=== PATIENT | male | born 1935 | race Hispanic/Latino ===

== ENCOUNTER 2019-07-07 14:09 | Inpatient (IN) | payer MEDICARE ==
[~2019-07-07] VITALS: Ht 162.6 cm; Wt 63.5 kg
[2019-07-07] MEDS ORDERED: IPRATROPIUM BROMIDE 0.02% 2.5 ML NEB NEB STA (14:13)
[2019-07-07] MEDS ORDERED: CEFTRIAXONE SOD 1 GM/NS 50 ML 50 ML IV STA (14:13)
[2019-07-07] MEDS ORDERED: METHYLPREDNISOLONE SOD SUCC 125 MG/2ML VIAL IV STA (14:13)
[2019-07-07] MEDS ORDERED: ALBUTEROL SULF 0.083% NEB SOLN 3 ML NEB NEB STA (14:13)
[2019-07-07 14:28] LABS: BASOPHILS # (AUTO) 0.1 (0.0-0.1); BASOPHILS % 0.7 % (0.0-1.0); EOSINOPHILS # (AUTO) 0.2 (0.0-0.4); EOSINOPHILS % 2.2 % (0.0-6.0); HEMOGLOBIN 13.8 g/dL (14.0-18.0); LYMPHOCYTES # (AUTO) 1.6 (1.0-3.2); MEAN CORPUSCULAR HEMOGLOBIN 30.2 pg (28-32); MEAN CORPUSCULAR HGB CONC 33.7 g/dL (31-35); MEAN CORPUSCULAR VOLUME 89.7 fL (81-99); MONOCYTES # (AUTO) 0.7 (0.2-0.8); MONOCYTES % 9.2 % (4.4-11.3); NEUTROPHILS # (AUTO) 4.8 (2.1-6.9); NEUTROPHILS % 65.5 % (38.7-80.0); PLATELET COUNT 202 x10e3/uL (140-360); RED BLOOD COUNT 4.57 x10e6/uL (4.3-5.7); RED CELL DISTRIBUTION WIDTH 13.3 % (11.7-14.4)
[2019-07-07 14:38] LABS: INR 1.04; PROTHROMBIN TIME 14.1 seconds (11.9-14.5)
[2019-07-07 14:39] LABS: PARTIAL THROMBOPLASTIN TIME 34.7 seconds (23.8-35.5)
[2019-07-07 14:48] LABS: ALANINE AMINOTRANSFERASE 11 IU/L (0-55); ALBUMIN 3.5 g/dL (3.5-5.0); ALKALINE PHOSPHATASE 118 IU/L (40-150); ANION GAP 13.7 mmol/L (8-16); BLOOD UREA NITROGEN 13 mg/dL (7-26); BUN/CREATININE RATIO 16 (6-25); CALCIUM 9.4 mg/dL (8.4-10.2); CARBON DIOXIDE 24 mmol/L (22-29); CHLORIDE 103 mmol/L (98-107); CREATINE KINASE 70 IU/L (30-200); EST GLOMERULAR FILTRATION RATE > 60 ML/MIN (60-); GLUCOSE 127 mg/dL (74-118); POTASSIUM 3.7 mmol/L (3.5-5.1); SODIUM 137 mmol/L (136-145)
[2019-07-07] MEDS ORDERED: AZITHROMYCIN 500MG/NS 250 ML 250 ML IV ONE (14:50)
[2019-07-07 15:29] LABS: B-TYPE NATRIURETIC PEPTIDE2 54.2 pg/mL (0-100)
[2019-07-07 16:10] LABS: BILIRUBIN,URINE NEGATIVE (NEGATIVE); CLARITY,URINE CLEAR (CLEAR); COLOR,URINE YELLOW (YELLOW); KETONES,URINE NEGATIVE (NEGATIVE); LEUKOCYTE ESTERASE ,URINE NEGATIVE (NEGATIVE); NITRITE,URINE NEGATIVE (NEGATIVE); PROTEIN,URINE DIPSTICK NEGATIVE (NEGATIVE); URINE UROBILINOGEN 0.2 mg/dL (0.2 - 1)
[2019-07-07 16:23] LABS: BACTERIA,URINE RARE /HPF; EPITHELIAL CELLS,URINE RARE /LPF
--- NOTE | 2019-07-07 16:24 | Diagnostic Imaging Report ---
EXAMINATION: CHEST SINGLE (PORTABLE) INDICATION: Shortness of breath COMPARISON: None FINDINGS: LINES/TUBES:Left chest pacer. LUNGS:The left lung is well inflated. The right lung is moderately inflated. Mild biapical pleural parenchymal thickening/scarring. There is perihilar fullness and indistinctness of the pulmonary vasculature. Right basilar patchy opacity. PLEURA:Likely small right pleural effusion. No pneumothorax. MEDIASTINUM:The cardiomediastinal silhouette appears normal in size and shape. Atherosclerotic calcifications of the thoracic aorta. BONES/SOFT TISSUES:No acute osseous injury. ABDOMEN:No free air under the diaphragm. 1. IMPRESSION: Pulmonary interstitial edema. Likely small right pleural effusion. Right basilar patchy opacity, more likely subsegmental atelectasis than superimposed aspiration or pneumonia. Signed by: Karissa Espinoza MD on 07/07/2019 4:21 PM
[2019-07-07] MEDS ORDERED: CEFTRIAXONE SOD 1 GRAM/0.9% SOD CHL 50ML BAG IV SCH (18:00)
[2019-07-07] MEDS ORDERED: SODIUM CHLORIDE FLUSH 10 ML SYR INJ PRN (18:00)
[2019-07-07] MEDS ORDERED: AZITHROMYCIN 500MG/SOD CHL 0.9% 250ML BAG IV SCH (18:00)
--- OUTSIDE RECORDS SUMMARY | 2019-07-07 18:32 | XMS REPORT ---
[facility] Unknown Phone Unavailable Care Team Providers Care Paralegal Supervisor Name Role Phone Vero GAYTAN Unavailable Unavailable Problems This patient has no known problems. Allergies, Adverse Reactions, Alerts This patient has no known allergies or adverse reactions. Medications This patient has no known medications. 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 LUNGS:The left lung is well inflated. The right lung is moderately inflated. Mild biapical pleural parenchymal thickening/scarring. There is perihilar fullness and indistinctness of the pulmonary vasculature. Right basilar patchy opacity. PLEURA:Likely small right pleural effusion. No pneumothorax. MEDIASTINUM:The cardiomediastinal silhouette appears normal in size and shape. Atherosclerotic calcifications of the thoracic aorta. BONES/SOFT TISSUES:No acute osseous injury. ABDOMEN:No free air under the diaphragm. 1. IMPRESSION: Pulmonary interstitial edema. Likely small right pleural effusion. Right basilar patchy opacity, more likely subsegmental atelectasis than superimposed aspiration or pneumonia. Signed by: Jaren Redmond MD on 07/07/2019 4:21 PM Dictated By: JAREN REDMOND MD [id number] COPY TO: GLENIS MERCADO NP
[2019-07-07] MEDS ORDERED: FLOMAX0.4 MG PO (19:24)
[2019-07-07] MEDS ORDERED: LOVASTATIN20 MG PO (19:24)
[2019-07-07] MEDS ORDERED: ENALAPRIL MALE2.5 MG PO (19:24)
[2019-07-07] MEDS ORDERED: QUETIAPINE FUMA25 MG PO (19:24)
[2019-07-07] MEDS ORDERED: METFORMIN HCL500 MG PO (19:24)
[2019-07-07] MEDS ORDERED: COMBIVENT RESPIM4 GM (19:24)
[2019-07-07] MEDS: OSELTAMIVIR PHOSPHATE 75 MG CAP PO SCH (19:30)
[2019-07-07] MEDS: ALBUTEROL SULF 0.083% NEB SOLN 3 ML NEB NEB SCH (20:18)
[2019-07-08] MEDS: ALBUTEROL SULF 0.083% NEB SOLN 3 ML NEB NEB SCH ×3 (00:12→06:40)
[2019-07-08 05:28] LABS: BASOPHILS % 0.2 % (0.0-1.0); HEMATOCRIT 36.7 % (38.2-49.6); HEMOGLOBIN 12.3 g/dL (14.0-18.0); LYMPHOCYTES # (AUTO) 0.7 (1.0-3.2); LYMPHOCYTES % 13.9 % (18.0-39.1); MEAN CORPUSCULAR HEMOGLOBIN 30.1 pg (28-32); MEAN CORPUSCULAR HGB CONC 33.5 g/dL (31-35); MONOCYTES # (AUTO) 0.1 (0.2-0.8); MONOCYTES % 2.1 % (4.4-11.3); NEUTROPHILS # (AUTO) 3.9 (2.1-6.9); NEUTROPHILS % 83.4 % (38.7-80.0); PLATELET COUNT 208 x10e3/uL (140-360); RED BLOOD COUNT 4.08 x10e6/uL (4.3-5.7); RED CELL DISTRIBUTION WIDTH 13.1 % (11.7-14.4)
[2019-07-08 05:46] LABS: ANION GAP 13.8 mmol/L (8-16); BLOOD UREA NITROGEN 11 mg/dL (7-26); BUN/CREATININE RATIO 15 (6-25); CALCIUM 9.4 mg/dL (8.4-10.2); CARBON DIOXIDE 21 mmol/L (22-29); CHLORIDE 107 mmol/L (98-107); CREATININE, SERUM 0.72 mg/dL (0.72-1.25); EST GLOMERULAR FILTRATION RATE > 60 ML/MIN (60-); GLUCOSE 138 mg/dL (74-118); POTASSIUM 3.8 mmol/L (3.5-5.1); SODIUM 138 mmol/L (136-145)
[2019-07-08] MEDS ORDERED: ALBUTEROL/IPRATROPIUM 3 ML NEB NEB PRN (07:00)
[2019-07-08 07:19] LABS: CHOL/HDL RATIO 2.8 (3.9-4.7)
[2019-07-08] MEDS: LORATADINE 10 MG TAB PO SCH (08:31)
[2019-07-08] MEDS: TAMSULOSIN HCL 0.4 MG CAP PO SCH (08:31)
[2019-07-08] MEDS: OSELTAMIVIR PHOSPHATE 75 MG CAP PO SCH ×2 (08:31→17:51)
[2019-07-08] MEDS: CEFTRIAXONE SOD 1 GM/NS 50 ML 50 ML IV SCH (08:31)
[2019-07-08] MEDS: FAMOTIDINE 20 MG TAB PO SCH ×2 (08:31→17:51)
[2019-07-08] MEDS: ASCORBIC ACID 500 MG TAB PO SCH ×2 (08:31→17:51)
[2019-07-08] MEDS: BENZONATATE 100 MG CAP PO SCH ×3 (08:31→21:00)
[2019-07-08] MEDS: ENALAPRIL MALEATE 5 MG TAB PO SCH (08:38)
[2019-07-08] MEDS ORDERED: DEXTROSE 50% SYRINGE 50 ML IV PRN (12:30)
[2019-07-08 12:40] VITALS: BP 113/65
[2019-07-08 12:48] VITALS: BP 113/65
[2019-07-08] MEDS ORDERED: SODIUM CHLORIDE 0.9% 250ML 250 ML ONE (13:13)
[2019-07-08] MEDS: GUAIFENESIN/DEXTROMETHORPHAN LIQD 5 ML UDC NG SCH ×2 (14:24→22:00)
[2019-07-08] MEDS: AZITHROMYCIN 500MG/NS 250 ML 250 ML IV SCH (14:25)
[2019-07-08 16:09] VITALS: BP 107/61
[2019-07-08] MEDS: INSULIN REGULAR, HUMAN 100 UNIT/1 ML 3ML VIAL SQ SCH ×2 (16:30→21:00)
[2019-07-08 20:00] VITALS: BP 111/63
[2019-07-08 20:42] VITALS: BP 111/63
[2019-07-08] MEDS: SIMVASTATIN 20 MG TAB PO SCH (21:00)
[2019-07-08] MEDS: QUETIAPINE FUMARATE 25 MG TAB PO SCH (21:00)
[2019-07-09] VITALS (9 sets, daily range): BP systolic 93–152; BP diastolic 54–82
[2019-07-09] MEDS: GUAIFENESIN/DEXTROMETHORPHAN LIQD 5 ML UDC NG SCH ×3 (06:00→21:10)
[2019-07-09 06:50] LABS: BASOPHILS # (AUTO) 0.1 (0.0-0.1); BASOPHILS % 0.9 % (0.0-1.0); EOSINOPHILS # (AUTO) 0.2 (0.0-0.4); HEMATOCRIT 38.7 % (38.2-49.6); HEMOGLOBIN 12.9 g/dL (14.0-18.0); LYMPHOCYTES # (AUTO) 1.8 (1.0-3.2); LYMPHOCYTES % 22.5 % (18.0-39.1); MEAN CORPUSCULAR HEMOGLOBIN 29.7 pg (28-32); MEAN CORPUSCULAR HGB CONC 33.3 g/dL (31-35); MEAN CORPUSCULAR VOLUME 89.2 fL (81-99); MONOCYTES # (AUTO) 0.8 (0.2-0.8); MONOCYTES % 9.6 % (4.4-11.3); NEUTROPHILS # (AUTO) 5.2 (2.1-6.9); NEUTROPHILS % 64.7 % (38.7-80.0); PLATELET COUNT 192 x10e3/uL (140-360); RED BLOOD COUNT 4.34 x10e6/uL (4.3-5.7); RED CELL DISTRIBUTION WIDTH 13.6 % (11.7-14.4)
[2019-07-09] MEDS: FAMOTIDINE 20 MG TAB PO SCH ×2 (07:20→16:30)
[2019-07-09] MEDS: INSULIN REGULAR, HUMAN 100 UNIT/1 ML 3ML VIAL SQ SCH ×4 (07:30→21:00)
[2019-07-09] MEDS: BENZONATATE 100 MG CAP PO SCH ×3 (09:17→21:00)
[2019-07-09] MEDS: ENALAPRIL MALEATE 5 MG TAB PO SCH (09:17)
[2019-07-09] MEDS: LORATADINE 10 MG TAB PO SCH (09:17)
[2019-07-09] MEDS: TAMSULOSIN HCL 0.4 MG CAP PO SCH (09:17)
[2019-07-09] MEDS: CEFTRIAXONE SOD 1 GM/NS 50 ML 50 ML IV SCH (09:17)
[2019-07-09] MEDS: OSELTAMIVIR PHOSPHATE 75 MG CAP PO SCH ×2 (09:17→17:39)
[2019-07-09] MEDS: ASCORBIC ACID 500 MG TAB PO SCH ×2 (09:17→17:39)
[2019-07-09] MEDS: AZITHROMYCIN 500MG/NS 250 ML 250 ML IV SCH (14:20)
[2019-07-09] MEDS: SIMVASTATIN 20 MG TAB PO SCH (21:00)
[2019-07-09] MEDS: QUETIAPINE FUMARATE 25 MG TAB PO SCH (21:00)
[2019-07-10] VITALS (7 sets, daily range): BP systolic 106–157; BP diastolic 56–89
[2019-07-10] MEDS: GUAIFENESIN/DEXTROMETHORPHAN LIQD 5 ML UDC NG SCH ×3 (06:00→21:55)
[2019-07-10] MEDS: INSULIN REGULAR, HUMAN 100 UNIT/1 ML 3ML VIAL SQ SCH ×4 (07:30→20:41)
[2019-07-10] MEDS: FAMOTIDINE 20 MG TAB PO SCH ×2 (08:21→14:43)
[2019-07-10] MEDS: BENZONATATE 100 MG CAP PO SCH ×3 (08:22→20:41)
[2019-07-10] MEDS: OSELTAMIVIR PHOSPHATE 75 MG CAP PO SCH ×2 (08:22→17:16)
[2019-07-10] MEDS: CEFTRIAXONE SOD 1 GM/NS 50 ML 50 ML IV SCH (08:22)
[2019-07-10] MEDS: TAMSULOSIN HCL 0.4 MG CAP PO SCH (08:22)
[2019-07-10] MEDS: LORATADINE 10 MG TAB PO SCH (08:22)
[2019-07-10] MEDS: ENALAPRIL MALEATE 5 MG TAB PO SCH (08:23)
[2019-07-10] MEDS: ASCORBIC ACID 500 MG TAB PO SCH ×2 (08:23→17:16)
[2019-07-10] MEDS: AZITHROMYCIN 500MG/NS 250 ML 250 ML IV SCH (14:43)
[2019-07-10] MEDS: QUETIAPINE FUMARATE 25 MG TAB PO SCH (20:41)
[2019-07-10] MEDS: SIMVASTATIN 20 MG TAB PO SCH (20:41)
[2019-07-11 05:16] VITALS: BP 135/74
[2019-07-11] MEDS: GUAIFENESIN/DEXTROMETHORPHAN LIQD 5 ML UDC NG SCH (05:59)
[2019-07-11] MEDS ORDERED: FAMOTIDINE20 MG PO (07:21)
[2019-07-11] MEDS ORDERED: TAMIFLU75 MG PO (07:21)
[2019-07-11] MEDS ORDERED: TESSALON PERLE100 MG PO (07:21)
[2019-07-11] MEDS ORDERED: LORATADINE10 MG PO (07:21)
[2019-07-11] MEDS ORDERED: MUCINEX DM ER1 EACH PO (07:22)
[2019-07-11 07:30] VITALS: BP 161/87
[2019-07-11] MEDS: INSULIN REGULAR, HUMAN 100 UNIT/1 ML 3ML VIAL SQ SCH ×2 (07:30→11:30)
--- NOTE | 2019-07-11 07:32 | Diagnostic Imaging Report ---
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 LUNGS/PLEURA: The lungs are better inflated. Diffuse hyperinflation suggestive of COPD/emphysema. Biapical pleural-parenchymal thickening is stable. Lateral right middle lobe airspace opacity is better visualized with a somewhat discoid appearance. There is diffuse interstitial edema of the lungs, right more severe than the left, similar to previous exam. No infiltrates in the left lung. There is blunting of the right lateral costophrenic angle and thickening of the lateral pleura in the mid chest. HEART AND MEDIASTINUM: The cardiomediastinal silhouette is unremarkable.. BONES AND SOFT TISSUES: The bones are diffusely demineralized. No focal osseous lesions. Soft tissues are unremarkable. UPPER ABDOMEN: Unremarkable. IMPRESSION: Right middle lobe airspace opacity may represent pneumonia or chronic atelectasis. Diffuse interstitial edema may be the result of a viral pneumonia or fibrosis. Lateral right midlung field pleural thickening and right pleural effusion. COPD/emphysema. Signed by: Dr. Katya Campa MD on 07/11/2019 7:29 AM
[2019-07-11] MEDS: FAMOTIDINE 20 MG TAB PO SCH (08:05)
[2019-07-11 08:15] VITALS: BP 161/87
[2019-07-11] MEDS: TAMSULOSIN HCL 0.4 MG CAP PO SCH (09:13)
[2019-07-11] MEDS: OSELTAMIVIR PHOSPHATE 75 MG CAP PO SCH (09:13)
[2019-07-11] MEDS: CEFTRIAXONE SOD 1 GM/NS 50 ML 50 ML IV SCH (09:13)
[2019-07-11] MEDS: ASCORBIC ACID 500 MG TAB PO SCH (09:13)
[2019-07-11] MEDS: ENALAPRIL MALEATE 5 MG TAB PO SCH (09:13)
[2019-07-11] MEDS: BENZONATATE 100 MG CAP PO SCH (09:13)
[2019-07-11] MEDS: LORATADINE 10 MG TAB PO SCH (09:13)
[2019-07-11 11:45] VITALS: BP 156/79
[2019-07-11] MEDS ORDERED: AZITHROMYCIN 250 MG TAB PO SCH (14:00)
== END 2019-07-11 12:54 | disposition home or self-care (01) | DRG 193 ==
LOC: ER 14:09 → ERHOLD 18:29 → MED/SURG3 07-08 12:31
PROVIDERS: ADMIT Internal Medicine; ATTEND Internal Medicine
DX: J09.X2 Influenza due to identified novel influenza A virus with other respiratory manifestations (principal); J81.0 Acute pulmonary edema; J90 Pleural effusion, not elsewhere classified; J81.1 Chronic pulmonary edema; J18.9 Pneumonia, unspecified organism; I10 Essential (primary) hypertension; E78.5 Hyperlipidemia, unspecified; E11.9 Type 2 diabetes mellitus without complications
CPT/HCPCS: 36415; 71045; 71046; 80048; 80053; 80061; 81001; 82550; 82553; 82948; 83036; 83605; 83880; 84484; 85025; 85610; 85730; 87040; 87086; 87400; 93005; 94640; 99284; J0456; J0696; J1817; J2930; J7050

== ENCOUNTER 2020-03-10 16:21 | Emergency (ER) | payer MEDICARE ==
[~2020-03-10] VITALS: Ht 162.6 cm; Wt 63.5 kg
[~2020-03-10 16:21] MED LIST: COMBIVENT RESPIM4 GM; ENALAPRIL MALE2.5 MG PO; FAMOTIDINE20 MG PO; FLOMAX0.4 MG PO; LORATADINE10 MG PO; LOVASTATIN20 MG PO; METFORMIN HCL500 MG PO; MUCINEX DM ER1 EACH PO; QUETIAPINE FUMA25 MG PO; TAMIFLU75 MG PO; TESSALON PERLE100 MG PO
--- OUTSIDE RECORDS SUMMARY | 2020-03-10 16:43 | XMS REPORT | Continuity of Care Document ---
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 For Metal Name Role Phone CHELY IBARRA, Lea MCGUIRE PCP CODY GUIDO Attphys Unavailable CODY GUIDO Admcaroline Unavailable Payers Payer Name Policy Type Policy Number Effective Date Expiration Date S ource Problems Condition Name Condition Details Condition Category Status Onset Date Resolution Date Last Treatment Date Treating Clinician Comments Source Influenzal bronchopneumonia Influenza with bronchopneumonia Problem Active [facility] Allergies, Adverse Reactions, Alerts Allergy Name Allergy Type Status Severity Reaction(s) Onset Date Inacti ve Date Treating Clinician Comments Source No Known Allergies DA Active U 2012-03-25 00:00:00 [facility] Medications Ordered Medication Name Filled Medication Name Start Date Stop Da te Current Medication? Ordering Clinician Indication Dosage Frequency Signature (SIG) Comments Components Source Benzonatate (Tessalon Perle) 100 Mg Capsule Benzonatat e (Tessalon Perle) 100 Mg Capsule 2019-07-11 00:00:00 Yes Cody Guido Md 100 Three T imes A Day [facility] Famotidine 20 Mg Tab Famotidine 20 Mg Tab 2019-07-11 00:00:00 Yes Cody Guido Md 20 Twice Daily Before Meals [facility] Guaifenesin/Dextromethorphan (Mucinex Dm Er 600-30 Mg Tablet) 1 Each Tab.er.12h Guaifenesin/Dextromethorphan (Mucinex Dm Er 600-30 Mg Tablet) 1 Each Tab.er.12h 2019-07-11 00:00:00 Yes Cody Guido Md 1 Every 12 H ours [facility] Loratadine 10 Mg Tablet Loratadine 10 Mg Tablet 2019-07-11 00:00:00 Yes Cody Guido Md 10 Daily [facility] Oseltamivir Phosphate (Tamiflu) 75 Mg Cap Oseltamivir Phosphate (Tamiflu) 75 Mg Cap 2019-07-11 00:00:00 Yes Cody Guido Md 75 Daily [facility] Enalapril Maleate 2.5 Mg Tablet Enalapril Maleate 2.5 Mg Tablet Yes 2.5 Daily [facility] Ipratropium/Albuterol Sulfate (Combivent Respimat Inha l [place]) 4 Gm Aer.w.adap Ipratropium/Albuterol Sulfate (Combivent Respimat Inhal [place]) 4 Gm Aer.w.adap Yes [facility] Lovastatin 20 Mg Tablet Lovastatin 20 Mg Tablet Yes 20 Daily [facility] Metformin Hcl 500 Mg Tablet Metformin Hcl 500 Mg Tablet Yes 500 Daily [facility] Quetiapine Fumarate 25 Mg Tablet Quetiapine Fumarate 25 Mg Tablet Yes 25 Bedtime [facility] Tamsulosin Hcl (Flomax*) 0.4 Mg Cap Tamsulosin Hcl (Flomax*) 0.4 Mg C ap Yes .4 Daily [facility] Procedures Procedure Date / Time Performed Performing Clinician [facility] e X-ray of chest, two views 2019-07-11 00:00:00 CODY GUIDO CH I [facility] Encounters Start Date/Time End Date/Time [facility]counter [facility] ID Source 2019-07-07 18:29:00 2019-07-11 12:54:00 Discharged Inpatient 1 CODY GUIDO [facility] [id number] [facility] Results Test Description Test Time Test Comments Results Result Comments Source GLUBED 2020-02-27 08:55:00 Test Item GLUBED (test code = GLUBED) 77 mg/dL 74-106 N Performed by certified rewind operator at [facility] Novel Coronavirus 05:36:00* Test Item Value Reference Range Interpretation Comments Novel Coronavirus 2018 Inhouse (test code = [id number]) Negative Negative Positive results are indicative of the presence imDLFZ-WoE-4 RNA, clinical correlation with patient historyand other diagnostic information is necessary to determinepatient infection status. Positive results do not rule outbacterial infection or co-infection with other viruses. Negative results do not preclude SARS-CoV-2 infection andshould not be used as the sole basis for patient managementdecisions. Negative results must be combined with otherclinical observations, patient history, and epidemiologicalinformation. Detection of SARS-CoV-2 RNA may be affected bysample collection methods, storage conditions, and/or stageof infection. Viral RNA mutations, vaccinations, antiviraltherapeutics, antibiotics, chemotherapeutic orimmunosuppressant drugs have not been evaluated for effectson detection. Results are for the identification of SARS-CoV-2 RNA usingthe [employer] M2000 System under the FDA Emergency UseAuthorization. The testing is performed by personneltrained in the procedures for the Payton M2000 moleculardiagnostic SARS-CoV-2 assay in vitro. Novel Coronavirus 05:35:00* Test Item Value Reference Range Interpretation Comments Novel Coronavirus 2018 Inhouse (test code = [id number]) Negative Negative Positive results are indicative of the presence kmVLYY-JpE-4 RNA, clinical correlation with patient historyand other diagnostic information is necessary to determinepatient infection status. Positive results do not rule outbacterial infection or co-infection with other viruses. Negative results do not preclude SARS-CoV-2 infection andshould not be used as the sole basis for patient managementdecisions. Negative results must be combined with otherclinical observations, patient history, and epidemiologicalinformation. Detection of SARS-CoV-2 RNA may be affected bysample collection methods, storage conditions, and/or stageof infection. Viral RNA mutations, vaccinations, antiviraltherapeutics, antibiotics, chemotherapeutic orimmunosuppressant drugs have not been evaluated for effectson detection. Results are for the identification of SARS-CoV-2 RNA usingthe Payton M2000 System under the FDA Emergency UseAuthorization. The testing is performed by personneltrained in the procedures for the Payton M2000 moleculardiagnostic SARS-CoV-2 assay in vitro. - US CHST W/[id number] 11:28:00 Name: GUILHERME JANSEN [facility] : 1935 Age/S: 84 / M [address] [facility] Unit #: [id number] Loc: [place] [address] Phys: Yonathan Reich MD Acct: [id number] Dis Date: Status: PRE SDC PHONE #: [phone] Exam Date: 02/23/2020 1100 FAX #: [phone] Reason: PRE OP EXAMS: CPT CODE: [id number] US CHST W/MEDIASTINUM 14828 REASON FOR EXAM: PRE OP EXAM ORDER DATE: 02/23/2020 9:56 AM Attending M.D.: Yonathan Reich MD PROCEDURE: - US CHST W/MEDIASTINUM Comparison: No relevant priors FINDINGS/ IMPRESSION: Large pleural effusion is present on the right side. No left-sided pleural effusion. Location: [facility] at 1128 Reported and signed by: Sukhi Gruber MD CC: Yonathan Reich MD; Tra Moran MD Technologist: SOURAV PARKER RT(R),RDMS Trnvab Date/Time: 02/23/2020 (1128) [email or web address] Orig Print D/T: S: 02/23/2020 (1131) Probe: PAGE 1 Signed Report PROTHROMBIN [id number] 10:56:00 * Test Item Value Reference Range Interpretation Comments PROTHROMBIN TIME PATIENT (test code = PTP) 13.0 seconds 9.0-14.0 N INTERNATIONAL NORMAL RATIO (test code = INR) 1.1 0.8-1.2 N The therapeutic range for oral anticoagulant therapy formost indications is an international normalized ratio (INR)of between 2.0 and 3.0. The recommended therapeutic INRrange for various clinical situations is listed below: Clinical Situation INR range Pulmonary e mbolism treatment (2.0-3.0)Venous thrombosis treatmentVenous thrombosis prophylaxis (high risk surgery)Prevention of systemic embolism from: Acute myocardial infarction Valvular heart disease Atrial fibrillation Mechanical prosthetic heart valves (2.5-3.5) IS PATIENT ON ANTICOAGULANTS? NTHROMBOPLASTIN TIME [id number] 10:56:00* Test Item Value Reference Range Interpretation Comments THROMBOPLASTIN TIME PARTIAL (test code = PTT) 30.2 seconds 23.0-37. 0 N IS PATIENT ON ANTICOAGULANTS? NCOMPREHENSIVE METABOLIC [id number] 10:45:00 * Test Item Value Reference Range Interpretation Comments SODIUM (test code = NA) 138 mmol/L 136-145 N POTASSIUM (test code = K) 4.2 mmol/L 3.5-5.1 N CHLORIDE (test code = CL) 105.0 mmol/L 98-107 N CARBON DIOXIDE (test code = CO2) 31.0 mmol/L 21-32 N ANION GAP (test code = GAP) 6.2 10-20 L GLUCOSE (test code = GLU) 128 mg/dL 74-106 H BLOOD UREA NITROGEN (test code = BUN) 12 mg/dL 7-18 N GLOMERULAR FILTRATION RATE (test code = GFR) > 60 mL/min >=60 Estimated GFR by using Modified MDRD formula.Chronic kidney disease is defined as either kidney damageor GFR <60 mL/min/1.73 m2 for >3 months. CREATININE (test code = CREAT) 0.70 mg/dL 0.7-1.3 N BUN/CREATININE RATIO (test code = BUN/CREA) 16.7 10-20 N TOTAL PROTEIN (test code = PROT) 7.2 gram/dL 6.4-8.2 N ALBUMIN (test code = ALB) 3.2 g/dL 3.4-5.0 L GLOBULIN (test code = GLOB) 4.0 gram/dL 2.7-4.2 N ALBUMIN/GLOBULIN RATIO (test code = A/G) 0.8 0.75-1.50 N CALCIUM (test code = CA) 9.3 mg/dL 8.5-10.1 N BILIRUBIN TOTAL (test code = BILT) 0.40 mg/dL 0.0-1.0 N SGOT/AST (test code = AST) 22 IUnit/L 15-37 N SGPT/ALT (test code = ALT) 18 IUnit/L 12-78 N ALKALINE PHOSPHATASE TOTAL (test code = ALKP) 124 IUnit/L 45-117 H Note change in reference range due to change in reagent. COMPREHENSIVE METABOLIC [id number] 10:34:00* Test Item Value Reference Range Interpretation Comments SODIUM (test code = NA) 138 mmol/L 136-145 N POTASSIUM (test code = K) 4.2 mmol/L 3.5-5.1 N CHLORIDE (test code = CL) 105.0 mmol/L 98-107 N CARBON DIOXIDE (test code = CO2) mmol/L 21-32 ANION GAP (test code = GAP) 10-20 GLUCOSE (test code = GLU) mg/dL 74-106 BLOOD UREA NITROGEN (test code = BUN) mg/dL 7-18 GLOMERULAR FILTRATION RATE (test code = GFR) mL/min >=60 CREATININE (test code = CREAT) mg/dL 0.7-1.3 BUN/CREATININE RATIO (test code = BUN/CREA) 10-20 TOTAL PROTEIN (test code = PROT) gram/dL 6.4-8.2 ALBUMIN (test code = ALB) g/dL 3.4-5.0 GLOBULIN (test code = GLOB) gram/dL 2.7-4.2 ALBUMIN/GLOBULIN RATIO (test code = A/G) 0.75-1.50 CALCIUM (test code = CA) mg/dL 8.5-10.1 BILIRUBIN TOTAL (test code = BILT) mg/dL 0.0-1.0 SGOT/AST (test code = AST) IUnit/L 15-37 SGPT/ALT (test code = ALT) IUnit/L 12-78 ALKALINE PHOSPHATASE TOTAL (test code = ALKP) IUnit/L 45-117 CBC W/AUTO [id number] 10:07:00* Test Item Value Reference Range Interpretation Comments WHITE BLOOD CELL (test code = WBC) 5.6 K/mm3 4.5-12.5 N RED BLOOD CELL (test code = RBC) 4.84 mill/mm3 4.0-5.8 N HEMOGLOBIN (test code = HGB) 13.8 gram/dL 13.0-17.5 N HEMATOCRIT (test code = HCT) 42.2 % 42.0-52.0 N MEAN CELL VOLUME (test code = MCV) 87.2 fL 80-98 N MEAN CELL HGB (test code = MCH) 28.5 picogram 27.0-33.0 N MEAN CELL HGB CONCETRATION (test code = MCHC) 32.7 gram/dL 33.0-36. 0 L RED CELL DISTRIBUTION WIDTH (test code = RDW) 14.5 % 11.6-16. 2 N RED CELL DISTRIBUTION WIDTH SD (test code = RDW-SD) 46.1 fL 37 .0-51.0 N PLATELET COUNT (test code = PLT) 203 K/mm3 150-450 N MEAN PLATELET VOLUME (test code = MPV) 9.1 fL 6.7-11.0 N NEUTROPHIL % (test code = NT%) 65.2 % 39.0-69.0 N IMMATURE GRANULOCYTE % (test code = IG%) 0.4 % 0.0-5.0 N LYMPHOCYTE % (test code = LY%) 21.6 % 25.0-55.0 L MONOCYTE % (test code = MO%) 10.1 % 0.0-10.0 H EOSINOPHIL % (test code = EO%) 1.6 % 0.0-5.0 N BASOPHIL % (test code = BA%) 1.1 % 0.0-1.0 H NUCLEATED RBC % (test code = NRBC%) 0.0 % 0-0 N NEUTROPHIL # (test code = NT#) 3.68 K/mm3 1.8-7.7 N IMMATURE GRANULOCYTE # (test code = IG#) 0.02 x10 3/uL 0-0.03 N LYMPHOCYTE # (test code = LY#) 1.22 K/mm3 1.0-5.0 N MONOCYTE # (test code = MO#) 0.57 K/mm3 0-0.8 N EOSINOPHIL # (test code = EO#) 0.09 K/mm3 0.0-0.5 N BASOPHIL # (test code = BA#) 0.06 K/mm3 0.0-0.2 N NUCLEATED RBC # (test code = NRBC#) 0.00 K/mm3 0.0-0.1 N PLEURAL [id number] 17:26:00 RUN DATE: 11/14/19 [facility] PAGE 1 RUN TIME: 1726 Specimen Inqui ry RUN USER: INTERFACE PATIENT: GUILHERME JANSEN ACCT #: [id number] LOC: [place] U #: [id number] AGE/SX: 84/M ROOM: RE11/10/19REG DR: Britton Mata MD : 37 BED: DIS: STATUS: MARQUITA CLARKE TLOC: SPEC #: [id number] RECD: 11/10/19 STATUS: DHIRAJ NEWMAN #: [id number] JOEY: 11/10/19- SUBM DR: Britton Mata MD ENTERED: 11/10/19 SP TYPE: PLEURAL FL OTHR DR: Tra Moran MD ORDERED: GROSS COPIES TO: Tra Moran MD [address] [place] [address] Britton Mata MD [address] [place] [address] PROCEDURES: GROSS (11/14/19- 1356) TISSUES: PLEURAL FLUID, NOS - 40 ML RED CLINICAL HISTORY COLLECTION DATE: 11/10/19 HISTORY LUNG NEOPLASM, MALIGNANT EFFUSION COMMENT Intradepartmental consultation: DMW. FINAL DIAGNOSIS Right pleural fluid, thoracentesis: INCONCLUSIVE FOR MALIGNANCY RARE ATYPICAL CELLS IN BACKGROUND OF BLOOD WITH LYMPHOCYTES, MESOTHEL IAL CELLS AND FEW NEUTROPHILS, see microscopic description FAVOR REACTIVE PROCESS RRB/sulaiman D 82133, [address]3110 CONTINUED ON NEXT PAGE RUN DATE: 11/14/19 [facility] PAGE 2 RUN TIME: 1726 Specimen Inquiry RUN USER: INTERFACE SPEC #: [id number] PATIENT: GUILHERME JANSEN #[id number] (Continued)------- ----- MACROSCOPIC The specimen is designated as "pleural fluid". It consists of 40 mL of red fluid for concentration and evaluation. GR OSS PERFORMED AT [facility] [address] [place] [address] [phone] MICRO SCOPIC Two smear slides, a cytospin and cell block are prepared from the flui d. The majority of the cellular elements present consist of unremarkable matu re appearing lymphocytes and few neutrophils in a background of blood. Macr ophages and a few mesothelial cells are identified. Very rare atypical cells are present that have moderately enlarged, hyperchromatic nuclei and a mildly elevated nucleus to cytoplasm ratio. Interpretation is limited by the very lo w number of atypical cells present but a reactive process is favored. All of the stains, including any controls performed, stain appropriately. MICROS COPIC PERFORMED AT [facility] [address] [place] [address] [phone] PERFORMING SITE Diagnosis performed at: [facility] [address] [facility], [place] [address] Signed SIGNATURE ON FILE Eulalio Washington MD 11/14/19 1726 END OF REPORT BODY FLUID CELL [id number] 11:25:00* Test Item Value Reference Range Interpretation Comments FLUID SOURCE (test code = SOURCEFL) PLEURAL FLD FLUID COLOR (test code = COLFL) RED COLORLESS FLUID APPEARANCE (test code = APPFL) CLOUDY FLUID WBC AUTO (test code = WBCFLA) 1639 cells/uL FLUID RBC AUTO (test code = RBCFLA) 80679 cells/uL FLUID TOTAL CELLS (test code = TCFL) 1657 cells/uL >0 Fluid WBC RBC PMN% MN%Type cells/uL cells/uL CSF (0-5) n/a (2+/-4) (90+/-20)Peritoneal n/a n/a n/a n/aPleural n/a n/a n/a n/aSynovial <200 n/a <25% <75% CSF (0-30) n/a (4+/-4) (90+/-20) FLUID POLY (test code = POLYFL) 1.8 % FLUID LYMPHOCYTE (test code = LYMPHFL) 87.6 % FLUID EOSINOPHIL (test code = EOSFL) 2.6 % FLUID BASOPHIL (test code = BASOFL) 0.0 % FLUID MACROPHAGE (test code = MACFL) 8.0 % FLUID OTHER CELL (test code = OTHERFL) 0.0 % TOTAL CELLS COUNTED ON DIFF (test code = TOTCELLFL) 113 cells REVIEWED BY (test code = REVIEW) DR. WASHINGTON,EULALIO PATHOLOGIST REVIEWED BY EULALIO RASHID M.D.11/11/19 FLUID [id number] 11:25:00* Test Item Value Reference Range Interpretation Comments FLUID GLUCOSE (test code = GLUFL) 78 mg/dL FLUID [id number] 11:25:00* Test Item Value Reference Range Interpretation Comments FLUID PROTEIN (test code = PROTFL) 5.0 gram/dL FLUID [id number] 11:25:00* Test Item Value Reference Range Interpretation Comments FLUID AMYLASE (test code = AMYFL) > 1302 Unit/L FLUID [id number] 11:25:00* Test Item Value Reference Range Interpretation Comments FLUID LDH (test code = LDHFL) 323 IUnit/L FLUID [id number] 11:25:00* Test Item Value Reference Range Interpretation Comments FLUID CHOLESTEROL (test code = CHOLFL) 56 mg/dL [SPECIMEN TYPE:] BODY FLUID CELL [id number] 18:34:00* Test Item Value Reference Range Interpretation Comments FLUID SOURCE (test code = SOURCEFL) PLEURAL FLD FLUID COLOR (test code = COLFL) RED COLORLESS FLUID APPEARANCE (test code = APPFL) CLOUDY FLUID WBC AUTO (test code = WBCFLA) 1639 cells/uL FLUID RBC AUTO (test code = RBCFLA) 82096 cells/uL FLUID TOTAL CELLS (test code = TCFL) 1657 cells/uL >0 Fluid WBC RBC PMN% MN%Type cells/uL cells/uL CSF (0-5) n/a (2+/-4) (90+/-20)Peritoneal n/a n/a n/a n/aPleural n/a n/a n/a n/aSynovial <200 n/a <25% <75% CSF (0-30) n/a (4+/-4) (90+/-20) FLUID POLY (test code = POLYFL) 1.8 % FLUID LYMPHOCYTE (test code = LYMPHFL) 87.6 % FLUID EOSINOPHIL (test code = EOSFL) 2.6 % FLUID BASOPHIL (test code = BASOFL) 0.0 % FLUID MACROPHAGE (test code = MACFL) 8.0 % FLUID OTHER CELL (test code = OTHERFL) 0.0 % TOTAL CELLS COUNTED ON DIFF (test code = TOTCELLFL) 113 cells REVIEWED BY (test code = REVIEW) PATHOLOGIST FLUID [id number] 18:34:00* Test Item Value Reference Range Interpretation Comments FLUID GLUCOSE (test code = GLUFL) 78 mg/dL FLUID [id number] 18:34:00* Test Item Value Reference Range Interpretation Comments FLUID PROTEIN (test code = PROTFL) 5.0 gram/dL FLUID [id number] 18:34:00* Test Item Value Reference Range Interpretation Comments FLUID AMYLASE (test code = AMYFL) > 1302 Unit/L FLUID [id number] 18:34:00* Test Item Value Reference Range Interpretation Comments FLUID LDH (test code = LDHFL) 323 IUnit/L FLUID [id number] 18:34:00* Test Item Value Reference Range Interpretation Comments FLUID CHOLESTEROL (test code = CHOLFL) 56 mg/dL [SPECIMEN TYPE:] BODY FLUID CELL [id number] 18:33:00* Test Item Value Reference Range Interpretation Comments FLUID SOURCE (test code = SOURCEFL) FLUID COLOR (test code = COLFL) COLORLESS FLUID APPEARANCE (test code = APPFL) FLUID WBC (test code = WBCFL) per mm3 0-150 FLUID WBC AUTO (test code = WBCFLA) 1639 cells/uL FLUID RBC (test code = RBCFL) per mm3 0-50 FLUID RBC AUTO (test code = RBCFLA) 91154 cells/uL FLUID TOTAL CELLS (test code = TCFL) 1657 cells/uL >0 Fluid WBC RBC PMN% MN%Type cells/uL cells/uL CSF (0-5) n/a (2+/-4) (90+/-20)Peritoneal n/a n/a n/a n/aPleural n/a n/a n/a n/aSynovial <200 n/a <25% <75% CSF (0-30) n/a (4+/-4) (90+/-20) FLUID POLY (test code = POLYFL) 1.8 % FLUID LYMPHOCYTE (test code = LYMPHFL) 87.6 % FLUID EOSINOPHIL (test code = EOSFL) 2.6 % FLUID BASOPHIL (test code = BASOFL) 0.0 % FLUID MACROPHAGE (test code = MACFL) 8.0 % FLUID OTHER CELL (test code = OTHERFL) 0.0 % TOTAL CELLS COUNTED ON DIFF (test code = TOTCELLFL) cells REVIEWED BY (test code = REVIEW) PATHOLOGIST FLUID [id number] 18:33:00* Test Item Value Reference Range Interpretation Comments FLUID GLUCOSE (test code = GLUFL) 78 mg/dL FLUID [id number] 18:33:00* Test Item Value Reference Range Interpretation Comments FLUID PROTEIN (test code = PROTFL) 5.0 gram/dL FLUID [id number] 18:33:00* Test Item Value Reference Range Interpretation Comments FLUID AMYLASE (test code = AMYFL) > 1302 Unit/L FLUID [id number] 18:33:00* Test Item Value Reference Range Interpretation Comments FLUID LDH (test code = LDHFL) 323 IUnit/L FLUID [id number] 18:33:00* Test Item Value Reference Range Interpretation Comments FLUID CHOLESTEROL (test code = CHOLFL) 56 mg/dL [SPECIMEN TYPE:] BODY FLUID CELL [id number] 16:38:00* Test Item Value Reference Range Interpretation Comments FLUID SOURCE (test code = SOURCEFL) FLUID COLOR (test code = COLFL) COLORLESS FLUID APPEARANCE (test code = APPFL) FLUID WBC (test code = WBCFL) per mm3 0-150 FLUID WBC AUTO (test code = WBCFLA) 1639 cells/uL FLUID RBC (test code = RBCFL) per mm3 0-50 FLUID RBC AUTO (test code = RBCFLA) 47725 cells/uL FLUID TOTAL CELLS (test code = TCFL) 1657 cells/uL >0 Fluid WBC RBC PMN% MN%Type cells/uL cells/uL CSF (0-5) n/a (2+/-4) (90+/-20)Peritoneal n/a n/a n/a n/aPleural n/a n/a n/a n/aSynovial <200 n/a <25% <75% CSF (0-30) n/a (4+/-4) (90+/-20) TOTAL CELLS COUNTED ON DIFF (test code = TOTCELLFL) cells REVIEWED BY (test code = REVIEW) PATHOLOGIST FLUID [id number] 16:38:00* Test Item Value Reference Range Interpretation Comments FLUID GLUCOSE (test code = GLUFL) 78 mg/dL FLUID [id number] 16:38:00* Test Item Value Reference Range Interpretation Comments FLUID PROTEIN (test code = PROTFL) 5.0 gram/dL FLUID [id number] 16:38:00* Test Item Value Reference Range Interpretation Comments FLUID AMYLASE (test code = AMYFL) > 1302 Unit/L FLUID [id number] 16:38:00* Test Item Value Reference Range Interpretation Comments FLUID LDH (test code = LDHFL) 323 IUnit/L FLUID [id number] 16:38:00* Test Item Value Reference Range Interpretation Comments FLUID CHOLESTEROL (test code = CHOLFL) 56 mg/dL [SPECIMEN TYPE:] BODY FLUID CELL [id number] 16:31:00* Test Item Value Reference Range Interpretation Comments FLUID SOURCE (test code = SOURCEFL) FLUID COLOR (test code = COLFL) COLORLESS FLUID APPEARANCE (test code = APPFL) FLUID WBC (test code = WBCFL) per mm3 0-150 FLUID RBC (test code = RBCFL) per mm3 0-50 FLUID TOTAL CELLS (test code = TCFL) cells/uL >0 TOTAL CELLS COUNTED ON DIFF (test code = TOTCELLFL) cells REVIEWED BY (test code = REVIEW) PATHOLOGIST FLUID [id number] 16:31:00* Test Item Value Reference Range Interpretation Comments FLUID GLUCOSE (test code = GLUFL) 78 mg/dL FLUID [id number] 16:31:00* Test Item Value Reference Range Interpretation Comments FLUID PROTEIN (test code = PROTFL) 5.0 gram/dL FLUID [id number] 16:31:00* Test Item Value Reference Range Interpretation Comments FLUID AMYLASE (test code = AMYFL) > 1302 Unit/L FLUID [id number] 16:31:00* Test Item Value Reference Range Interpretation Comments FLUID LDH (test code = LDHFL) 323 IUnit/L FLUID [id number] 16:31:00* Test Item Value Reference Range Interpretation Comments FLUID CHOLESTEROL (test code = CHOLFL) 56 mg/dL [SPECIMEN TYPE:] - SP THORACENTESIS [id number] 14:11:00 Name: INDERJITGUILHERME XAVIER [facility] : 1935 Age/S: 84 / M [address] [facility] Unit #: [id number] Loc: [place] [address] Phys: Britton Mata MD Acct: [id number] Dis Date: Status: [place] [facility] PHONE #: [phone] Exam Date: 11/10/2019 1240 FAX #: [phone] Reason: EXAMS: CPT CODE: [id number] SP THORACENTESIS W/IMAG 81359 Fluoro Time: DAP (Gy m2): Air Kerma (mGy): REASON FOR EXAM: Large right pleural effusion Exam order date: 11/10/2019 12:22 PM PROCEDURE: Ultrasound guided right thoracentesis Ordering: Sudarshan Brunson MD Location:[facility] CPT code: 47071, 39163 FINDINGS: Prior to the procedure, informed consent was obtained after risks and benefits of the procedure were explained to the patient. The patient agreed and wanted to proceed. The patient was brought to special procedures. The back was prepped and draped in the usual fashion. All elements of maximal sterile techniques were followed. Ultrasound was first used for assessment of the effusion. US shows large right effusion. Images of the effusion were submitted to PACS. 2% local lidocaine was given for local anesthetic. Under real time ultrasound guidance, a micropuncture needle was advanced into the right thoracic cavity. A guide wire was inserted and an 8 Fr catheter was inserted in the thoracic cavity. 1.5 L of fluid obtained. The catheter was removed and hemostasis obtained. Samples were submitted for gram stain, cultures, cell count, LDH, glucose, and protein. MEDICATIONS: None COMPLICATIONS: No immediate. Blood loss: less than 5cc IMPRESSION: 1.5 L of fluid removed from the right thoracic cavity. at 1411 Reported and signed b y: Yonathan Reich M.D. CC: Tra Moran MD; Britton Mata MD Technologist: Jyoti Urena Trnscb Da te/Time: 11/10/2019 (2091) [email or web address].VTL Orig Print D/T: S: 0 11/10/2019 (4469) PAGE 1 Signed Report - XR CHEST 1 [id number] 13:17:00 FAX: Tra Anthony [phone] [place]: B St: REG FAX: Britton Galloway [phone] Name: GUILHERME JANSEN [facility] : 1935 Age/S: 84/M [address] [facility] Unit #: [id number] Loc: [place] [address] Phys: Yonathan Reich MD Acct: [id number] Dis Date: Status: REG SDC PHONE #: [phone] Exam Date: 11/10/2019 1300 FAX #: [phone] Reason: PSOT THORACENTESIS EXAMS: CPT CODE: [id number] XR CHEST 1 V 86368 HISTORY: Post thoracentesis. COMPARISON: Same day. Location: [facility]. Decreased right effusion after thora centesis. No pneumothorax. Patchy infiltrate superimposed scarring and fib rosis. Left lung is clear with scarring and fibrosis and honeycombing. Lef t ICD is unchanged. Cardiac silhouette is normal. Apical pleural thickenin g. IMPRESSION: No pneumothorax after right tho racentesis. at 1317 Reported and signed by: Lucas Goldman M.D. CC: Tra Moran MD; Britton Mata MD Technologist: RT Candy(Mervat) Trnscrd Johny e/Time/By: 11/10/2019 (8756) : By: [email or web address] Orig Print D/T: S: 2019 (3052) PAGE 1 Signed Report [id number] 11:00:00* Test Item Value Reference Range Interpretation Comments GLUBED (test code = GLUBED) 89 mg/dL 74-106 N Performed by certified rewind operator at [facility] - XR CHEST 2 [id number] 09:49:00 FAX: Tra Anthony [phone] [place]: St: REG FAX: Britton Galloway [phone] [facility] 1935 Age[facility]S: 84[facility]M [address] [facility] Unit #: [id number] Loc: [place] [address] Phys: Britton Mata MD Acct: [id number] Dis Date: Status: [place] [facility] #: [phone] Exam Date: 11/10/2019932 FAX #: [phone] Reason: PREOP ORDERS EXAMS: CPT CODE: [id number] XR CHEST 2 V 02032 HISTORY: Preop. COMPARISON: August 29, 2019. Location: [facility]. AP and lateral view of the chest: Large right partially loculated pleural effusion appears worse from previous examination. Underlying atelectasis and infiltrate. This is superimposed on scarring and mild fibrosis. Apical pleural thickening. Left ICD is unchanged. Cardiac silhouette is normal. 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 Old mid left clavicular fracture. IMPRESSION: Worsened large right partially loculated pleural effusion with patchy infiltrate and subsegmental atelectasis. at 0949 Reported and signed by: Lucas Goldman M.D. CC: Tra Moran MD; Britton Mata MD Technologist: RT Hayley(R) Trnscrd Date/Time/By: 11/10/2019 (0 949) : By: [email or web address] Orig Print D/T: S: 11/10/2019 (0956) PAGE 1 Signed Report Novel Coronavirus 2019 [id number] 22:18:00* Test Item Value Reference Range Interpretation Comments Novel Coronavirus 2019 Inhouse (test code = COVNONPUI) Negative Negative Testing Criteria: Preprocedure ScreeningComments: 11/10/19Novel Coronavirus 2019 [id number] 22:17:00* Test Item Value Reference Range Interpretation Comments Novel Coronavirus 2019 Inhouse (test code = COVNONPUI) Negative Negative Testing Criteria: Preprocedure ScreeningComments: 11/10/19COMPREHENSIVE METABOLIC [id number] 16:19:00* Test Item Value Reference Range Interpretation Comments SODIUM (test code = NA) 139 mmol/L 136-145 N POTASSIUM (test code = K) 4.9 mmol/L 3.5-5.1 N CHLORIDE (test code = CL) 106.0 mmol/L 98-107 N CARBON DIOXIDE (test code = CO2) 28.0 mmol/L 21-32 N ANION GAP (test code = GAP) 9.9 10-20 L GLUCOSE (test code = GLU) 99 mg/dL 74-106 N BLOOD UREA NITROGEN (test code = BUN) 10 mg/dL 7-18 N GLOMERULAR FILTRATION RATE (test code = GFR) > 60 mL/min >=60 Estimated GFR by using Modified MDRD formula.Chronic kidney disease is defined as either kidney damageor GFR <60 mL/min/1.73 m2 for >3 months. CREATININE (test code = CREAT) 0.70 mg/dL 0.7-1.3 N BUN/CREATININE RATIO (test code = BUN/CREA) 13.6 10-20 N TOTAL PROTEIN (test code = PROT) 8.3 gram/dL 6.4-8.2 H ALBUMIN (test code = ALB) 3.2 g/dL 3.4-5.0 L GLOBULIN (test code = GLOB) 5.1 gram/dL 2.7-4.2 H ALBUMIN/GLOBULIN RATIO (test code = A/G) 0.6 0.75-1.50 L CALCIUM (test code = CA) 9.7 mg/dL 8.5-10.1 N BILIRUBIN TOTAL (test code = BILT) 0.40 mg/dL 0.0-1.0 N SGOT/AST (test code = AST) 21 IUnit/L 15-37 N SGPT/ALT (test code = ALT) 17 IUnit/L 12-78 N ALKALINE PHOSPHATASE TOTAL (test code = ALKP) 133 IUnit/L 45-117 H Note change in reference range due to change in reagent. COMPREHENSIVE METABOLIC [id number] 16:12:00* Test Item Value Reference Range Interpretation Comments SODIUM (test code = NA) 139 mmol/L 136-145 N POTASSIUM (test code = K) 4.9 mmol/L 3.5-5.1 N CHLORIDE (test code = CL) 106.0 mmol/L 98-107 N CARBON DIOXIDE (test code = CO2) mmol/L 21-32 ANION GAP (test code = GAP) 10-20 GLUCOSE (test code = GLU) mg/dL 74-106 BLOOD UREA NITROGEN (test code = BUN) mg/dL 7-18 GLOMERULAR FILTRATION RATE (test code = GFR) mL/min >=60 CREATININE (test code = CREAT) mg/dL 0.7-1.3 BUN/CREATININE RATIO (test code = BUN/CREA) 10-20 TOTAL PROTEIN (test code = PROT) gram/dL 6.4-8.2 ALBUMIN (test code = ALB) g/dL 3.4-5.0 GLOBULIN (test code = GLOB) gram/dL 2.7-4.2 ALBUMIN/GLOBULIN RATIO (test code = A/G) 0.75-1.50 CALCIUM (test code = CA) mg/dL 8.5-10.1 BILIRUBIN TOTAL (test code = BILT) mg/dL 0.0-1.0 SGOT/AST (test code = AST) IUnit/L 15-37 SGPT/ALT (test code = ALT) IUnit/L 12-78 ALKALINE PHOSPHATASE TOTAL (test code = ALKP) IUnit/L 45-117 PROTHROMBIN [id number] 16:05:00* Test Item Value Reference Range Interpretation Comments PROTHROMBIN TIME PATIENT (test code = PTP) 13.2 seconds 9.0-14.0 N INTERNATIONAL NORMAL RATIO (test code = INR) 1.1 0.8-1.2 N The therapeutic range for oral anticoagulant therapy formost indications is an international normalized ratio (INR)of between 2.0 and 3.0. The recommended therapeutic INRrange for various clinical situations is listed below: Clinical Situation INR range Pulmonary e mbolism treatment (2.0-3.0)Venous thrombosis treatmentVenous thrombosis prophylaxis (high risk surgery)Prevention of systemic embolism from: Acute myocardial infarction Valvular heart disease Atrial fibrillation Mechanical prosthetic heart valves (2.5-3.5) IS PATIENT ON ANTICOAGULANTS? NTHROMBOPLASTIN TIME [id number] 16:05:00* Test Item Value Reference Range Interpretation Comments THROMBOPLASTIN TIME PARTIAL (test code = PTT) 33.7 seconds 23.0-37. 0 N IS PATIENT ON ANTICOAGULANTS? NCBC W/AUTO [id number] 15:47:00* Test Item Value Reference Range Interpretation Comments WHITE BLOOD CELL (test code = WBC) 8.0 K/mm3 4.5-12.5 N RED BLOOD CELL (test code = RBC) 4.62 mill/mm3 4.0-5.8 N HEMOGLOBIN (test code = HGB) 13.7 gram/dL 13.0-17.5 N HEMATOCRIT (test code = HCT) 41.6 % 42.0-52.0 L MEAN CELL VOLUME (test code = MCV) 90.0 fL 80-98 N MEAN CELL HGB (test code = MCH) 29.7 picogram 27.0-33.0 N MEAN CELL HGB CONCETRATION (test code = MCHC) 32.9 gram/dL 33.0-36. 0 L RED CELL DISTRIBUTION WIDTH (test code = RDW) 13.0 % 11.6-16. 2 N RED CELL DISTRIBUTION WIDTH SD (test code = RDW-SD) 42.7 fL 37 .0-51.0 N PLATELET COUNT (test code = PLT) 266 K/mm3 150-450 N MEAN PLATELET VOLUME (test code = MPV) 9.1 fL 6.7-11.0 N NEUTROPHIL % (test code = NT%) 66.9 % 39.0-69.0 N IMMATURE GRANULOCYTE % (test code = IG%) 0.6 % 0.0-5.0 N LYMPHOCYTE % (test code = LY%) 16.8 % 25.0-55.0 L MONOCYTE % (test code = MO%) 11.2 % 0.0-10.0 H EOSINOPHIL % (test code = EO%) 3.6 % 0.0-5.0 N BASOPHIL % (test code = BA%) 0.9 % 0.0-1.0 N NUCLEATED RBC % (test code = NRBC%) 0.0 % 0-0 N NEUTROPHIL # (test code = NT#) 5.32 K/mm3 1.8-7.7 N IMMATURE GRANULOCYTE # (test code = IG#) 0.05 x10 3/uL 0-0.03 H LYMPHOCYTE # (test code = LY#) 1.34 K/mm3 1.0-5.0 N MONOCYTE # (test code = MO#) 0.89 K/mm3 0-0.8 H EOSINOPHIL # (test code = EO#) 0.29 K/mm3 0.0-0.5 N BASOPHIL # (test code = BA#) 0.07 K/mm3 0.0-0.2 N NUCLEATED RBC # (test code = NRBC#) 0.00 K/mm3 0.0-0.1 N MANUAL DIFF REQUIRED (test code = MDIFF) NO - XR CHEST 1 [id number] 12:39:00 FAX: Yasemin Espinal MD [phone] [place]: St: ADM FAX: Tra Anthony [phone] Name: GUILHERME JANSEN [facility] : 1935 Age/S: 84/M [address] [facility] Unit #: [id number] Loc: V.4[address] [place] [address] Phys: Britton Mata MD Acct: [id number] Dis Date: Status: ADM IN PHONE #: [phone] Exam Date: 08/29/2019 1217 FAX #: [phone] Reason: POST CHEST TUBE REMOVAL EXAMS: CPT CODE: [id number] XR CHEST 1 V 71159 REASON FOR EXAM: POST CHEST TUBE REMOVAL Exam Order Date: 08/29/2019 11:50 AM Ordering M.DLaurita: Britton Mata MD PROCEDURE: - XR CHEST 1 V COMPARISON: Chest x-ray earlier today at 10:23 AM FINDINGS/ IMPRESSION: Previous pigtail catheter has been removed from the right hemithorax. No pneumothorax is appreciated on this exam. Remaining findings are unc hanged. Location: [facility] at 1239 Reported and signed by : Sukhi Gruber MD CC: Yasemin Espinal MD; Tra Moran MD Technologist: Georgie Ferreira RT(R); Osmel Quintana RT(R) Trnvard Date/Time/By: 08/29/2019 (1569) : By: [email or web address] Orig Print D/T: S: 08/29/2019 (9199) PAGE 1 Signed Report [id number] 12:20:00* Test Item Value Reference Range Interpretation Comments GLUBED (test code = GLUBED) 119 mg/dL 74-106 H Performed by certified rewind operator at [facility] - XR CHEST 1 [id number] 10:54:00 FAX: Yasemin Espinal MD [phone] [place]: B St: ADM FAX: Tra Anthony [phone] Name: GUILHERME JANSEN [facility] : 1935 Age/S: 84/M [address] [facility] Unit #: [id number] Loc: V.4010 [place] [address] Phys: Britton Mata MD Acct: [id number] Dis Date: Status: ADM IN PHONE #: [phone] Exam Date: 08/29/2019 1030 FAX #: [phone] Reason: POST CHEST TUBE REMOVAL EXAMS: CPT CODE: [id number] XR CHEST 1 V 35406 REASON FOR EXAM: POST CHEST TUBE REMOVAL Exam Order Date: 08/29/2019 9:54 AM Ordering M.D.: Britton Mata MD PROCEDURE: - XR CHEST 1 V COMPARISON: Chest radiograph the previous morning FINDINGS: Right pleural pigtail catheter and left subclavian pacemaker are unchanged in position. Small right-sided pleural effusion is grossly unchanged when accounting for differences in patient positioning. There are also patchy opacities in the mid to lower right lung which appear similar to the previous study may represent a superimposed infectious process. Cardiomediastinal silhouette is midline and normal in size. Posttraumatic changes in the right clavicle, degenerative changes of the spine, and other musculoskeletal structures are unchanged. Prior cholecystectomy. IM PRESSION: No change from prior exam. Location: [facility] at 1054 Reported and signed by: Sukhi Gruber MD CC: Yasemin Espinal MD; Tra Moran MD Technologist: RT TARA(Mervat) Trnscrd Date/Time/By: 08/29/2019 (8945) : By: [email or web address] Orig Print D/T: S: 08/29/2019 (0307) P AGE 2 Signed Report COMPREHENSIVE METABOLIC [id number] 09:58:00* Test Item Value Reference Range Interpretation Comments SODIUM (test code = NA) 137 mmol/L 136-145 N POTASSIUM (test code = K) 4.6 mmol/L 3.5-5.1 N CHLORIDE (test code = CL) 101.0 mmol/L 98-107 N CARBON DIOXIDE (test code = CO2) 31.0 mmol/L 21-32 N ANION GAP (test code = GAP) 9.6 10-20 L GLUCOSE (test code = GLU) 150 mg/dL 74-106 H BLOOD UREA NITROGEN (test code = BUN) 8 mg/dL 7-18 N GLOMERULAR FILTRATION RATE (test code = GFR) > 60 mL/min >=60 Estimated GFR by using Modified MDRD formula.Chronic kidney disease is defined as either kidney damageor GFR <60 mL/min/1.73 m2 for >3 months. CREATININE (test code = CREAT) 0.90 mg/dL 0.7-1.3 N BUN/CREATININE RATIO (test code = BUN/CREA) 8.9 10-20 L TOTAL PROTEIN (test code = PROT) 7.0 gram/dL 6.4-8.2 N ALBUMIN (test code = ALB) 2.8 g/dL 3.4-5.0 L GLOBULIN (test code = GLOB) 4.2 gram/dL 2.7-4.2 N ALBUMIN/GLOBULIN RATIO (test code = A/G) 0.7 0.75-1.50 L CALCIUM (test code = CA) 9.4 mg/dL 8.5-10.1 N BILIRUBIN TOTAL (test code = BILT) 0.60 mg/dL 0.0-1.0 N SGOT/AST (test code = AST) 21 IUnit/L 15-37 N SGPT/ALT (test code = ALT) 19 IUnit/L 12-78 N ALKALINE PHOSPHATASE TOTAL (test code = ALKP) 124 IUnit/L 45-117 H Note change in reference range due to change in reagent. COMPREHENSIVE METABOLIC [id number] 09:41:00* Test Item Value Reference Range Interpretation Comments SODIUM (test code = NA) 137 mmol/L 136-145 N POTASSIUM (test code = K) 4.6 mmol/L 3.5-5.1 N CHLORIDE (test code = CL) 101.0 mmol/L 98-107 N CARBON DIOXIDE (test code = CO2) mmol/L 21-32 ANION GAP (test code = GAP) 10-20 GLUCOSE (test code = GLU) mg/dL 74-106 BLOOD UREA NITROGEN (test code = BUN) mg/dL 7-18 GLOMERULAR FILTRATION RATE (test code = GFR) mL/min >=60 CREATININE (test code = CREAT) mg/dL 0.7-1.3 BUN/CREATININE RATIO (test code = BUN/CREA) 10-20 TOTAL PROTEIN (test code = PROT) gram/dL 6.4-8.2 ALBUMIN (test code = ALB) g/dL 3.4-5.0 GLOBULIN (test code = GLOB) gram/dL 2.7-4.2 ALBUMIN/GLOBULIN RATIO (test code = A/G) 0.75-1.50 CALCIUM (test code = CA) mg/dL 8.5-10.1 BILIRUBIN TOTAL (test code = BILT) mg/dL 0.0-1.0 SGOT/AST (test code = AST) IUnit/L 15-37 SGPT/ALT (test code = ALT) IUnit/L 12-78 ALKALINE PHOSPHATASE TOTAL (test code = ALKP) IUnit/L 45-117 CBC W/AUTO [id number] 09:27:00* Test Item Value Reference Range Interpretation Comments WHITE BLOOD CELL (test code = WBC) 8.4 K/mm3 4.5-12.5 N RED BLOOD CELL (test code = RBC) 4.64 mill/mm3 4.0-5.8 N HEMOGLOBIN (test code = HGB) 13.8 gram/dL 13.0-17.5 N HEMATOCRIT (test code = HCT) 41.1 % 42.0-52.0 L MEAN CELL VOLUME (test code = MCV) 88.6 fL 80-98 N MEAN CELL HGB (test code = MCH) 29.7 picogram 27.0-33.0 N MEAN CELL HGB CONCETRATION (test code = MCHC) 33.6 gram/dL 33.0-36. 0 N RED CELL DISTRIBUTION WIDTH (test code = RDW) 13.2 % 11.6-16. 2 N RED CELL DISTRIBUTION WIDTH SD (test code = RDW-SD) 43.0 fL 37 .0-51.0 N PLATELET COUNT (test code = PLT) 233 K/mm3 150-450 N MEAN PLATELET VOLUME (test code = MPV) 9.0 fL 6.7-11.0 N NEUTROPHIL % (test code = NT%) 70.6 % 39.0-69.0 H IMMATURE GRANULOCYTE % (test code = IG%) 0.8 % 0.0-5.0 N LYMPHOCYTE % (test code = LY%) 15.8 % 25.0-55.0 L MONOCYTE % (test code = MO%) 9.7 % 0.0-10.0 N EOSINOPHIL % (test code = EO%) 2.3 % 0.0-5.0 N BASOPHIL % (test code = BA%) 0.8 % 0.0-1.0 N NUCLEATED RBC % (test code = NRBC%) 0.0 % 0-0 N NEUTROPHIL # (test code = NT#) 5.94 K/mm3 1.8-7.7 N IMMATURE GRANULOCYTE # (test code = IG#) 0.07 x10 3/uL 0-0.03 H LYMPHOCYTE # (test code = LY#) 1.33 K/mm3 1.0-5.0 N MONOCYTE # (test code = MO#) 0.82 K/mm3 0-0.8 H EOSINOPHIL # (test code = EO#) 0.19 K/mm3 0.0-0.5 N BASOPHIL # (test code = BA#) 0.07 K/mm3 0.0-0.2 N NUCLEATED RBC # (test code = NRBC#) 0.00 K/mm3 0.0-0.1 N CBC W/AUTO [id number] 09:21:00* Test Item Value Reference Range Interpretation Comments WHITE BLOOD CELL (test code = WBC) K/mm3 4.5-12.5 RED BLOOD CELL (test code = RBC) mill/mm3 4.0-5.8 HEMOGLOBIN (test code = HGB) 13.8 gram/dL 13.0-17.5 N HEMATOCRIT (test code = HCT) % 42.0-52.0 MEAN CELL VOLUME (test code = MCV) fL 80-98 MEAN CELL HGB (test code = MCH) picogram 27.0-33.0 MEAN CELL HGB CONCETRATION (test code = MCHC) gram/dL 33.0-36. 0 RED CELL DISTRIBUTION WIDTH (test code = RDW) % 11.6-16. 2 RED CELL DISTRIBUTION WIDTH SD (test code = RDW-SD) fL 37 .0-51.0 PLATELET COUNT (test code = PLT) K/mm3 150-450 MEAN PLATELET VOLUME (test code = MPV) fL 6.7-11.0 NEUTROPHIL % (test code = NT%) % 39.0-69.0 IMMATURE GRANULOCYTE % (test code = IG%) % 0.0-5.0 LYMPHOCYTE % (test code = LY%) % 25.0-55.0 MONOCYTE % (test code = MO%) % 0.0-10.0 EOSINOPHIL % (test code = EO%) % 0.0-5.0 BASOPHIL % (test code = BA%) % 0.0-1.0 NEUTROPHIL # (test code = NT#) K/mm3 1.8-7.7 LYMPHOCYTE # (test code = LY#) K/mm3 1.0-5.0 MONOCYTE # (test code = MO#) K/mm3 0-0.8 EOSINOPHIL # (test code = EO#) K/mm3 0.0-0.5 BASOPHIL # (test code = BA#) K/mm3 0.0-0.2 [id number] 08:06:00* Test Item Value Reference Range Interpretation Comments GLUBED (test code = GLUBED) 88 mg/dL 74-106 N Performed by certified rewind operator at [facility] [id number] 20:43:00* Test Item Value Reference Range Interpretation Comments GLUBED (test code = GLUBED) 117 mg/dL 74-106 H Performed by certified rewind operator at [facility] [id number] 11:54:00* Test Item Value Reference Range Interpretation Comments GLUBED (test code = GLUBED) 117 mg/dL 74-106 H [facility] - XR CHEST 1 [id number] 09:18:00 FAX: Yasemin Espinal MD [phone] [place]: St: ADM FAX: Sudarshan Stanley MD [phone] FAX: Tra Anthony [phone] Name: GUILHERME JANSEN [facility] : 1935 Age/S: 84/M [address] [facility] Unit #: [id number] Loc: V.4010 [place] [address] Phys: Sudarshan Brunson MD Acct: [id number] Dis Date: Status: ADM IN ONE #: [phone] Exam Date: 08/28/2019 0845 FAX #: [phone] Reason: right chest tube and hydropneumothorax EXAMS: CPT CODE: [id number] XR CHEST 1 V 64678 HISTORY: Roach pneumothorax. COMPARISON: Previous day. Location: [facility] . Left ICD and the right pigtail catheter are unchanged in positio n. Small right effusion. No pneumothorax. Patchy right infiltrate or scar is unchanged. Left lung is clear. Cardiac silhouette is normal. IMPRESSION: No pneumothorax. Small right effusion. Right pigtail catheter is unchanged in position. Patchy right lower l obe infiltrate. Electronically Signed by Concepcion Goldman on 2019 at 0918 Reported and signed by: Lucas Goldman M.D. CC: Yasemin Espinal MD; Sudarshan Brunson MD; Tra Moran MD Technologist: PRISCILLA MARTINEZ RT(R) Trnscrd Date/Time/By: 08/28/2019 (917) : By: [email or web address] Orig Print D/T: S: (920) PAGE 1 Signed Repo rt [id number] 08:05:00* Test Item Value Reference Range Interpretation Comments GLUBED (test code = GLUBED) 92 mg/dL 74-106 N [facility] [id number] 21:08:00* Test Item Value Reference Range Interpretation Comments GLUBED (test code = GLUBED) 75 mg/dL 74-106 N Performed by certified rewind operator at [facility] - XR CHEST 1 [id number] 16:45:00 FAX: Yasemin Espinal MD [phone] [place]: St: [facility] FAX: Sudarshan Stanley MD [phone] FAX: Tra Anthony [phone] Name: GUILHERME JANSEN [facility] : 1935 Age/S: 84/M [address] [facility] Unit #: [id number] Loc: [address] [address] Phys: Sudarshan Brunson MD Acct: [id number] Dis Date: Status: ADM IN PH ONE #: [phone] Exam Date: 08/27/2019 1629 FAX #: [phone] Reason: chest tube clampled 2 hrs EXAMS: CPT CODE: [id number] XR CHEST 1 V 84231 HISTORY: Chest tube clamped. COMPARISON: Same day. Location: [facility]. Left ICD and the right pigtail catheter are unchanged. No pn eumothorax on the right is visible. Lung scarring and fibrosis. Small ri ght effusion. Dependent changes without infiltrates or congestion. Cardi ac silhouette is normal. IMPRESSION: No pneumo thorax. Small right effusion. at 0727 Reported and signed by: Nasreen Goldman M.D. CC: Yasemin Espinal MD; Sudarshan Brunson MD; Tra Moran MD Technologist: Emperatriz Bingham(Mervat) Trnscrd Date/Time/By: 08/27/2019 (5057) : By: [email or web address] Orig Pr int D/T: S: 08/27/2019 (7468) PAGE 1 Signed Report [id number] 15:18:00* Test Item Value Reference Range Interpretation Comments GLUBED (test code = GLUBED) 97 mg/dL 74-106 N Performed by certified rewind operator at [facility] [id number] 11:45:00* Test Item Value Reference Range Interpretation Comments GLUBED (test code = GLUBED) 118 mg/dL 74-106 H Performed by certified rewind operator at [facility] [id number] 10:35:00* Test Item Value Reference Range Interpretation Comments GLUBED (test code = GLUBED) 85 mg/dL 74-106 N Performed by certified rewind operator at [facility] - XR CHEST 1 [id number] 09:27:00 FAX: Yasemin Espinal MD [phone] [place]: B St: ADM FAX: Sudarshan Stanley MD [phone] FAX: Tra Anthony [phone] Name: GUILHERME JANSEN [facility] : 1935 Age/S: 84/M [address] Unit #: [id number] Loc: V.4010 [place] [address] Phys: Sudarshan Brunson MD Acct: [id number] Dis Date: Status: ADM IN ONE #: [phone] Exam Date: 08/27/2019914 FAX #: [phone] Reason: EVAL. TO OBTAIN TWO-HOURS AFTER CHEST TUBE HAS EXAMS: CPT CODE: [id number] XR CHEST 1 V 01778 EXAM: Chest x- ray, one view; INFORMATION: Pneumothorax; lung mass; IMPRESSION: 1. No evidence of pneumothorax with right chest tube in place. 2. No change compared with yesterday's study; COPD, pulmonary scarring and right pleural scarring. 3. Normal-sized heart. Location code: [facility] at 09 Reported and signed by: Britton Mata M.D. CC: Yasemin Espinal MD; Sudarshan Brunson MD; Tra Moran MD Techn ologist: Gabriella ZHENG(R) Trnscrd Date/Ricardo e/By: 08/27/2019 (926) : By: CarinGRW Orig Print D/T: S: 08/27/2019 (64) PAGE 1 Signed Report [id number] 20:43:00* Test Item Value Reference Range Interpretation Comments GLUBED (test code = GLUBED) 87 mg/dL 74-106 N Performed by certified rewind operator at [facility] [id number] 16:07:00* Test Item Value Reference Range Interpretation Comments GLUBED (test code = GLUBED) 105 mg/dL 74-106 N Performed by certified rewind operator at [facility] - SP PERC PLEUR DRN [id number] 13:28:00 Name: GUILHERME JANSEN [facility] : 1935 Age/S: 84 / M [address] Unit #: [id number] Loc: [place] [address] Phys: Yasemin Espinal MD Acct: [id number] Dis Date: Status: ADM IN PHONE #: [phone] Exam Date: 08/24/2019 1705 FAX #: [phone] Reason: EXAMS: CPT CODE: [id number] SP PERC PLEUR DRN W/IMAG 73714 Fluoro Time: 78.6 DAP (Gy m2): 0.72 Air Kerma (mGy): 2 EXAM: Exchange of a pleural drainage catheter with fluoroscopic guidance; INFORMATION: Enlarging pneumothorax despite indwelling small bore pigtail catheter; FINDINGS: Informed consent was obtained and the patient was placed prone on the fluoroscopy table. The indwelling 10 English pigtail drainage catheter was removed over a guidewire and was replaced with a 14 English catheter. The pneumothorax was evacuated. The catheter was sutured to the skin and connected to Pleur-evac drainage. No complications. IMPRESSION: Successful exchange of a smallbore pleural drainage catheter with a 14 English pigtail catheter, followed by evacuation of the right-sided pneumothorax. Fluoroscopy Time: 78.6 sec CAK : 2 mGy DAP : 720 mGy sq cm Location code: [facility] at 1328 Reported and signed by: Britton Mata M.D. CC: Yasemin Espinal MD; Tra Moran MD Technologist: Hadley Lemons RT(R) Trnscb Date/Time: 08/26/2019 (1328) Rogers Orig Print D/T: S: 08/26/2019 (1155) PAGE 1 Signed Report [id number] 11:53:00* Test Item Value Reference Range Interpretation Comments GLUBED (test code = GLUBED) 112 mg/dL 74-106 H Performed by certified rewind operator at [facility] - XR CHEST 1 [id number] 09:29:00 FAX: Yasemin Espinal MD [phone] [place]: St: [facility] FAX: Sudarshan Stanley MD [phone] FAX: Etta Tra Moran [phone] Name: GUILHERME JANSEN [facility] : 1935 Age/S: 84/M [address] [facility] Unit #: [id number] Loc: [address] [place] [id number] Phys: Sudarhsan Brunson MD Acct: [id number] Dis Date: Status: ADM IN ONE #: [phone] Exam Date: 08/26/2019912 FAX #: [phone] Reason: right chest tube and hydropneumothorax EXAMS: CPT CODE: [id number] XR CHEST 1 V 11011 REASON FOR EXAM: right chest tube and hydropneumothorax EXAM ORDER DATE: 08/26/2019 5:00 AM Ordering: Sudarshan Brunson MD Attending:Greg Espinal MD Location:[facility] PROCEDURE: - XR CHEST 1 V COMPARISON: 08/25/2019 FINDINGS: Portable AP frontal view of the chest obtained at 9:13 AM shows diffuse airspace opacity of the ri ght lung. The heart size is within normal limits. Pulmonary vasculatures a re unremarkable.. Stable appearance of the left subclavian pacemaker IMPRESSION: Mild right pleural effusion. No evidence of pneumothora x. Stable appearance of the right pigtail chest tube. Electr onically Signed by Concepcion Reich on 08/26/2019 at 0929 Re ported and signed by: Yonathan Reich M.D. CC: Yasemin Espinal MD; Sudarshan Medina MD; Tra Moran MD Technologist: ORIN BISHOP JR Trnscrd Date/Time/By: 08/26/2019 (928) : By: CarinVTL Orig Print D/T: S: 08/26/2019 (9414) PAGE 1 Signed Report [id number] 07:47:00* Test Item Value Reference Range Interpretation Comments GLUBED (test code = GLUBED) 137 mg/dL 74-106 H Performed by certified rewind operator at [facility] [id number] 20:43:00* Test Item Value Reference Range Interpretation Comments GLUBED (test code = GLUBED) 83 mg/dL 74-106 N Performed by certified rewind operator at [facility] [id number] 16:38:00* Test Item Value Reference Range Interpretation Comments GLUBED (test code = GLUBED) 114 mg/dL 74-106 H Performed by certified rewind operator at [facility] - XR CHEST 1 [id number] 12:29:00 FAX: Yasemin Espinal MD [phone] [place]: St: ADM FAX: Tra Anthony [phone] Name: GUILHERME JANSEN [facility] : 1935 Age/S: 84/M [address] [facility] Unit #: [id number] Loc: V.4010 [place] [address] Phys: Britton Mata MD Acct: [id number] Dis Date: Status: ADM IN PHONE #: [phone] Exam Date: 08/25/2019 1218 FAX #: [phone] Reason: POSSBILE CHEST TUBE REMOVAL EXAMS: CPT CODE: [id number] XR CHEST 1 V 21071 REASON FOR EXAM: POSSBILE CHEST TUBE REMOVAL EXAM ORDER DATE: 08/25/2019 11:45 AM Ordering: Britton Mata MD Attending:Yasemin Espinal MD Location:[facility] PROCEDURE: - XR CHEST 1 V COMPARISON: 08/24/2019 FINDINGS: Portable AP frontal view of the chest obtained at 12:19 PM shows patchy airspace opacity of the right base with a small right pleural effusion. The heart size is within normal limits. Pulmonary vasculatures are unremarkable. IMPRESSION: Stable appearance of the right-sided pigtail chest tube, atelectasis of the right base with a small right pleural effusion. No evidence of pneumothorax at 1248 Reported and signed by: Yonathan Reich M.D. CC: Yasmein Espinal MD; Tra Moran MD Technologist: RT Candy(Mervat) Trnscrd Date/Time/By: 08/25/2019 (8484) : By: CarinVTL Orig Print D/T : S: 08/25/2019 (6991) PAGE 1 Sig andres Report [id number] 12:02:00* Test Item Value Reference Range Interpretation Comments GLUBED (test code = GLUBED) 148 mg/dL 74-106 H Performed by certified rewind operator at [facility] [id number] 08:08:00* Test Item Value Reference Range Interpretation Comments GLUBED (test code = GLUBED) 87 mg/dL 74-106 N Performed by certified rewind operator at [facility] [id number] 20:30:00* Test Item Value Reference Range Interpretation Comments GLUBED (test code = GLUBED) 108 mg/dL 74-106 H Performed by certified rewind operator at [facility] - XR CHEST 1 [id number] 17:31:00 FAX: Yasemin Espinal MD [phone] [place]: St: [facility] FAX: Tra Anthony [phone] Name: GUILHERME JANSEN [facility] : 1935 Age/S: 84/M [address] Unit #: [id number] Loc: V.4010 [place] [address] Phys: Britton Mata MD Acct: [id number] Dis Date: Status: ADM IN PHONE #: [phone] Exam Date: 08/24/2019 1725 FAX #: [phone] Reason: PTX; st.p. exchange of R chest tube; EXAMS: CPT CODE: [id number] XR CHEST 1 V 57152 HISTORY: Pneumothorax. COMPARISON: Same day. Location: TH. Left ICD is unchanged. New right pigtail catheter with marked reduction of the large right pneumothorax with residual less than 5% apical pneumothorax noted. Small right effusion. Scarring and dependent changes and subsegmental atelectasis right lower lobe. Cardiac silhouette is normal. IMPRESSION: Near complete resolution of the right pneumothorax after adjustment of the right pigtail catheter with residual less than 5% pneumothorax in the apex. at 1731 Reported and signed by: Lucas Goldman M.D. CC: Yasemin Espinal MD; Tra Moran MD Technologist: DEUCE CHRISTINE Trnscrd Date/Time/By: 08/24/2019 (1731) : By: CarinTH4 Orig Print D/T: S: 08/24/2019 (5066) PAGE 1 Signed Report - XR CHEST 1 [id number] 13:54:00 FAX: Yasemin Espinal MD [phone] [place]: B St: ADM FAX: Tra Anthony [phone] FAX: Yvon Murphy MD [phone] Name: GUILHERME JANSEN [facility] : 1935 Age/S: 84/M [address] Unit #: [id number] Loc: Elder4010 [place] [address] Phys: Yvon Ram MD Acct: [id number] Dis Date: Status: ADM IN ONE #: [phone] Exam Date: 08/24/2019 1337 FAX #: [phone] Reason: right pneumothorax EXAMS: CPT CODE: [id number] XR CHEST 1 V 03554 REASON FOR EXAM: right pneumothorax EXAM ORDER DATE: 08/24/2019 12:00 AM Ordering: Yvon Ram MD Attending:Yasemin Espinal MD Location:[facility] PROCEDURE: - XR CHEST 1 V COMPARISON: 08/23/2019 FINDINGS: Portable AP frontal view of the chest obtain ed at 1:36 PM shows focal atelectasis of the right base with a small right pleural effusion. The heart size is within normal limits. Pulmonary vasculatures are unremarkable.. Stable appearance of the right subclavian pacemaker IMPRESSION: Persistent 50% right pneumothorax. Stab le appearance of the small caliber right-sided pigtail chest tube at 3200 Reported and signed by: Yonathan Reich M.D. CC: Yasemin Espinal MD; Tra Moran MD; Yvon Ram M.D. Technologist: ADOLFO TEMPLE RT(R); Hadley Lemons RT(R) Trnvard Date/Time/By: 08/24/2019 (8450) : By: kathi GRAY Orig Print D/T: S: 08/24/2019 (0810) PAGE 1 Signed Report GLUBED 2019-08-24 08:03:00* Test Item Value Reference Range Interpretation Comments GLUBED (test code = GLUBED) 124 mg/dL 74-106 H [facility] [id number] 20:48:00* Test Item Value Reference Range Interpretation Comments GLUBED (test code = GLUBED) 102 mg/dL 74-106 N [facility] [id number] 16:00:00* Test Item Value Reference Range Interpretation Comments GLUBED (test code = GLUBED) 156 mg/dL 74-106 H Performed by certified rewind operator at [facility] [id number] 12:06:00* Test Item Value Reference Range Interpretation Comments GLUBED (test code = GLUBED) 134 mg/dL 74-106 H Performed by certified rewind operator at [facility] - XR CHEST 1 [id number] 09:22:00 FAX: Yasemin Espinal MD [phone] [place]: St: [facility] FAX: Tra Anthony [phone] Name: GUILHERME JANSEN [facility] : 1935 Age/S: 84/M [address] [facility] Unit #: [id number] Loc: V.4032 [place] [address] Phys: Yasemin Espinal MD Acct: [id number] Dis Date: Status: ADM IN PHONE #: [phone] Exam Date: 08/23/2019 0851 FAX #: [phone] Reason: CHEST TUBE EXAMS: CPT CODE: [id number] XR CHEST 1 V 10791 REASON FOR EXAM: CHEST TUBE EXAM ORDER DATE: 08/23/2019 5:00 AM Ordering: Yasemin Espinal MD Attending:Yasemin Espinal MD Location:[facility] PROCEDURE: - XR CHEST 1 V COMPARISON: 08/22/2019 FINDINGS: Portable AP frontal view of the chest obtained at 8:51 AM shows clear lungs without evidence of consolidation. The heart size is within normal limits. Pulmonary vasculatures are unremarkable. Stable appearance of the left subclavian pacemaker IMPRESSION: Persistent large right pneumothorax (50%). Stable appearance of the pigtail chest tube in the right base. Small bilateral pleural effusions larger on the right at 0922 Reported and signed by: Yonathan Reich M.D. CC: Yasemin Espinal MD; Tra Moran MD Technologist: ORIN BISHOP JR Trnscrd Date/Time/By: 08/23/2019 (921) : By: Chas Orig Print D/T: S: 08/23/2019 (5357) PAGE 1 Signed Report [id number] 08:01:00* Test Item Value Reference Range Interpretation Comments GLUBED (test code = GLUBED) 86 mg/dL 74-106 N Performed by certified rewind operator at [facility] COMPREHENSIVE METABOLIC [id number] 05:33:00* Test Item Value Reference Range Interpretation Comments SODIUM (test code = NA) 141 mmol/L 136-145 N POTASSIUM (test code = K) 4.2 mmol/L 3.5-5.1 N CHLORIDE (test code = CL) 105.0 mmol/L 98-107 N CARBON DIOXIDE (test code = CO2) 31.0 mmol/L 21-32 N ANION GAP (test code = GAP) 9.2 10-20 L GLUCOSE (test code = GLU) 109 mg/dL 74-106 H BLOOD UREA NITROGEN (test code = BUN) 12 mg/dL 7-18 N GLOMERULAR FILTRATION RATE (test code = GFR) > 60 mL/min >=60 Estimated GFR by using Modified MDRD formula.Chronic kidney disease is defined as either kidney damageor GFR <60 mL/min/1.73 m2 for >3 months. CREATININE (test code = CREAT) 0.70 mg/dL 0.7-1.3 N BUN/CREATININE RATIO (test code = BUN/CREA) 17.1 10-20 N TOTAL PROTEIN (test code = PROT) 6.4 gram/dL 6.4-8.2 N ALBUMIN (test code = ALB) 2.9 g/dL 3.4-5.0 L GLOBULIN (test code = GLOB) 3.5 gram/dL 2.7-4.2 N ALBUMIN/GLOBULIN RATIO (test code = A/G) 0.8 0.75-1.50 N CALCIUM (test code = CA) 9.8 mg/dL 8.5-10.1 N BILIRUBIN TOTAL (test code = BILT) 0.40 mg/dL 0.0-1.0 N SGOT/AST (test code = AST) 20 IUnit/L 15-37 N SGPT/ALT (test code = ALT) 20 IUnit/L 12-78 N ALKALINE PHOSPHATASE TOTAL (test code = ALKP) 113 IUnit/L 45-117 N Note change in reference range due to change in reagent. COMPREHENSIVE METABOLIC [id number] 05:18:00* Test Item Value Reference Range Interpretation Comments SODIUM (test code = NA) 141 mmol/L 136-145 N POTASSIUM (test code = K) 4.2 mmol/L 3.5-5.1 N CHLORIDE (test code = CL) 105.0 mmol/L 98-107 N CARBON DIOXIDE (test code = CO2) mmol/L 21-32 ANION GAP (test code = GAP) 10-20 GLUCOSE (test code = GLU) mg/dL 74-106 BLOOD UREA NITROGEN (test code = BUN) mg/dL 7-18 GLOMERULAR FILTRATION RATE (test code = GFR) mL/min >=60 CREATININE (test code = CREAT) mg/dL 0.7-1.3 BUN/CREATININE RATIO (test code = BUN/CREA) 10-20 TOTAL PROTEIN (test code = PROT) gram/dL 6.4-8.2 ALBUMIN (test code = ALB) g/dL 3.4-5.0 GLOBULIN (test code = GLOB) gram/dL 2.7-4.2 ALBUMIN/GLOBULIN RATIO (test code = A/G) 0.75-1.50 CALCIUM (test code = CA) mg/dL 8.5-10.1 BILIRUBIN TOTAL (test code = BILT) mg/dL 0.0-1.0 SGOT/AST (test code = AST) IUnit/L 15-37 SGPT/ALT (test code = ALT) IUnit/L 12-78 ALKALINE PHOSPHATASE TOTAL (test code = ALKP) IUnit/L 45-117 CBC W/AUTO [id number] 05:11:00* Test Item Value Reference Range Interpretation Comments WHITE BLOOD CELL (test code = WBC) 8.3 K/mm3 4.5-12.5 N RED BLOOD CELL (test code = RBC) 4.55 mill/mm3 4.0-5.8 N HEMOGLOBIN (test code = HGB) 13.4 gram/dL 13.0-17.5 N HEMATOCRIT (test code = HCT) 40.5 % 42.0-52.0 L MEAN CELL VOLUME (test code = MCV) 89.0 fL 80-98 N MEAN CELL HGB (test code = MCH) 29.5 picogram 27.0-33.0 N MEAN CELL HGB CONCETRATION (test code = MCHC) 33.1 gram/dL 33.0-36. 0 N RED CELL DISTRIBUTION WIDTH (test code = RDW) 13.4 % 11.6-16. 2 N RED CELL DISTRIBUTION WIDTH SD (test code = RDW-SD) 43.5 fL 37 .0-51.0 N PLATELET COUNT (test code = PLT) 231 K/mm3 150-450 N MEAN PLATELET VOLUME (test code = MPV) 9.5 fL 6.7-11.0 N NEUTROPHIL % (test code = NT%) 65.5 % 39.0-69.0 N IMMATURE GRANULOCYTE % (test code = IG%) 0.5 % 0.0-5.0 N LYMPHOCYTE % (test code = LY%) 17.0 % 25.0-55.0 L MONOCYTE % (test code = MO%) 11.8 % 0.0-10.0 H EOSINOPHIL % (test code = EO%) 4.4 % 0.0-5.0 N BASOPHIL % (test code = BA%) 0.8 % 0.0-1.0 N NUCLEATED RBC % (test code = NRBC%) 0.0 % 0-0 N NEUTROPHIL # (test code = NT#) 5.41 K/mm3 1.8-7.7 N IMMATURE GRANULOCYTE # (test code = IG#) 0.04 x10 3/uL 0-0.03 H LYMPHOCYTE # (test code = LY#) 1.40 K/mm3 1.0-5.0 N MONOCYTE # (test code = MO#) 0.97 K/mm3 0-0.8 H EOSINOPHIL # (test code = EO#) 0.36 K/mm3 0.0-0.5 N BASOPHIL # (test code = BA#) 0.07 K/mm3 0.0-0.2 N NUCLEATED RBC # (test code = NRBC#) 0.00 K/mm3 0.0-0.1 N MANUAL DIFF REQUIRED (test code = MDIFF) NO CBC W/AUTO [id number] 05:06:00* Test Item Value Reference Range Interpretation Comments WHITE BLOOD CELL (test code = WBC) K/mm3 4.5-12.5 RED BLOOD CELL (test code = RBC) mill/mm3 4.0-5.8 HEMOGLOBIN (test code = HGB) 13.4 gram/dL 13.0-17.5 N HEMATOCRIT (test code = HCT) % 42.0-52.0 MEAN CELL VOLUME (test code = MCV) fL 80-98 MEAN CELL HGB (test code = MCH) picogram 27.0-33.0 MEAN CELL HGB CONCETRATION (test code = MCHC) gram/dL 33.0-36. 0 RED CELL DISTRIBUTION WIDTH (test code = RDW) % 11.6-16. 2 RED CELL DISTRIBUTION WIDTH SD (test code = RDW-SD) fL 37 .0-51.0 PLATELET COUNT (test code = PLT) K/mm3 150-450 MEAN PLATELET VOLUME (test code = MPV) fL 6.7-11.0 NEUTROPHIL % (test code = NT%) % 39.0-69.0 IMMATURE GRANULOCYTE % (test code = IG%) % 0.0-5.0 LYMPHOCYTE % (test code = LY%) % 25.0-55.0 MONOCYTE % (test code = MO%) % 0.0-10.0 EOSINOPHIL % (test code = EO%) % 0.0-5.0 BASOPHIL % (test code = BA%) % 0.0-1.0 NEUTROPHIL # (test code = NT#) K/mm3 1.8-7.7 LYMPHOCYTE # (test code = LY#) K/mm3 1.0-5.0 MONOCYTE # (test code = MO#) K/mm3 0-0.8 EOSINOPHIL # (test code = EO#) K/mm3 0.0-0.5 BASOPHIL # (test code = BA#) K/mm3 0.0-0.2 [id number] 21:17:00* Test Item Value Reference Range Interpretation Comments GLUBED (test code = GLUBED) 80 mg/dL 74-106 N Performed by certified rewind operator at [facility] - XR CHEST 1 [id number] 17:21:00 FAX: Yasemin Espinal MD [phone] [place]: St: ADM FAX: Y Tra Moran [phone] Name: GUILHERME JANSEN [facility] : 1935 Age/S: 84/M [address] [facility] Unit #: [id number] Loc: V.4032 [place] [address] Phys: Britton Mata MD Acct: [id number] Dis Date: Status: ADM IN PHONE #: [phone] Exam Date: 08/22/2019 1705 FAX #: [phone] Reason: PTX EXAMS: CPT CODE: [id number] XR CHEST 1 V 61921 HISTORY: Pneumothorax. COMPARISON: Same day. Location: TH. Left ICD is unchanged. Persistent 40% right pneumothorax with small caliber chest tube on the right side which is unchanged in position. Mass in the right middle lobe is not visible. Scarring and COPD. Loss of lung volume on the right. Cardiomegaly. IMPRESSION: Persistent 40% right pneumothorax despite presence of a small caliber chest tube. at 1721 Reported and signed by: Lucas Goldman M.D. CC: Yasemin Espinal MD; Tra Moran MD Technologist: RT TARA(R) Trnscrd Date/Time/By: 08/22/2019 (172) : By: [email or web address] Orig Print D/T: S: 08/22/2019 (2793) PAGE 1 Signed Report [id number] 16:27:00* Test Item Value Reference Range Interpretation Comments GLUBED (test code = GLUBED) 115 mg/dL 74-106 H Performed by certified rewind operator at [facility] [id number] 11:43:00* Test Item Value Reference Range Interpretation Comments GLUBED (test code = GLUBED) 100 mg/dL 74-106 N Performed by certified rewind operator at [facility] - XR CHEST 1 [id number] 09:40:00 FAX: Yasemin Espinal MD [phone] [place]: St: ADM FAX: Y Tra Moran [phone] Name: GUILHERME JANSEN [facility] : 1935 Age/S: 84/M [address] [facility] Unit #: [id number] Loc: V.4032 [place] [address] Phys: Britton Mata MD Acct: [id number] Dis Date: Status: ADM IN PHONE #: [phone] Exam Date: 08/22/2019921 FAX #: [phone] Reason: EVAL FOR CHEST TUBE REMOVAL EXAMS: CPT CODE: [id number] XR CHEST 1 V 33306 REASON FOR EXAM: EVAL FOR CHEST TUBE REMOVAL EXAM ORDER DATE: 08/22/2019 8:53 AM Ordering: Britton Mata MD Attending:Yasemin Espinal MD Location:[facility] PROCEDURE: - XR CHEST 1 V COMPARISON: 08/19/2019 FINDINGS: Portable AP frontal view of the chest obtained at 9:23 AM shows clear lungs without evidence of consolidation. There is no evidence of effusion. The heart size is within normal limits. Stable appearance of the left subclavian pacemaker. Pulmonary vasculatures are unremarkable. IM PRESSION: Interval worsening of the right pneumothorax now measure appro ximately 40%. Stable appearance of the right pigtail chest tube Elec tronically Signed by Concepcion Reich on 08/22/2019 at 0940 Reported and signed by: Yonathan Reich M.D. CC: Yasemin Espinal MD; Tra Martins MD Technologist: ORIN BISHOP JR Trnscrd Date/Time/By: 08/22/2019 (7516) : By: CarinVTL Orig Print D/T: S: 08/22/2019 (1727) PAGE 1 Signed Report [id number] 08:00:00* Test Item Value Reference Range Interpretation Comments GLUBED (test code = GLUBED) 127 mg/dL 74-106 H Performed by certified rewind operator at [facility] [id number] 16:48:00* Test Item Value Reference Range Interpretation Comments GLUBED (test code = GLUBED) 145 mg/dL 74-106 H Performed by certified rewind operator at [facility] [id number] 11:44:00* Test Item Value Reference Range Interpretation Comments GLUBED (test code = GLUBED) 110 mg/dL 74-106 H Performed by certified rewind operator at [facility] [id number] 08:55:00* Test Item Value Reference Range Interpretation Comments GLUBED (test code = GLUBED) 144 mg/dL 74-106 H Performed by certified rewind operator at [facility] [id number] 20:54:00* Test Item Value Reference Range Interpretation Comments GLUBED (test code = GLUBED) 117 mg/dL 74-106 H [facility] [id number] 16:52:00* Test Item Value Reference Range Interpretation Comments GLUBED (test code = GLUBED) 120 mg/dL 74-106 H [facility] [id number] 16:52:00* Test Item Value Reference Range Interpretation Comments GLUBED (test code = GLUBED) 109 mg/dL 74-106 H [facility] [id number] 08:40:00* Test Item Value Reference Range Interpretation Comments GLUBED (test code = GLUBED) 109 mg/dL 74-106 H [facility] certified [facility] [id number] 20:31:00* Test Item Value Reference Range Interpretation Comments EMILY (test code = EMILY) 126 mg/dL 74-106 H Performed by certified rewind operator at [facility] [id number] 17:36:00 RUN DATE: 08/19/19 [place] - Lab PAGE 1 RUN TIME: 1736 Specimen Inqui ry RUN USER: INTERFACE PATIENT: GUILHERME JANSEN ACCT #: [id number] LOC: [facility] U #: [id number] AGE/SX: 84/M ROOM: [facility] RE08/14/19REG DR: Yasemin Espinal MD : 37 BED: B DIS: STATUS: ADM IN TLOC: SPEC #: [id number] RECD: 08/17/19-148 STATUS: DHIRAJ RECollette #: [id number] JOEY: 08/17/19- SUBM DR: Yasemin Espinal MD ENTERED: 08/17/19-1408 SP TYPE: LUNG OTHR DR: Sudarshan Brunson MD, Ramon A MD Quraishi, Mohammed A MD TUMOR REGISTRYORDERED: GROSS COPIES TO: Yasemin Espinal MD [address] [place] [address] [place] [address] [facility] [address] [place] [address] Tra Moran MD [address] [place] [address] Asad Ayoub MD [address] [place], [place] [id number] TUMOR REG ISTRY MARKERS: MALIGNANCY PROCEDURES: GROSS (08/19/19-151) TISSUES: 1 . LUNG, NOS - RIGHT LUNG RINSE, 4 SMEARS 2. LUNG, NOS - RIGHT LUNG BX, 3 TP CLINICAL HISTORY COLLECTION DATE: 08/17/19 HISTORY RIGHT LUNG MASS CONTINUED ON NEXT PAGE RUN DATE: 08/19/19 [facility] PAGE 2 RUN TIME: 1736 Specimen Inquiry RUN USER: INTERFACE SPEC #: [id number] PATIENT: GUILHERME JANSEN #[id number] (Continued) FINAL DIAGNOSIS Right l raymon, fine needle aspirate biopsy: PERIPHERAL BLOOD ELEMENTS ONLY S PECIMEN NONDIAGNOSTIC Right lung, fine needle aspirate core biopsy and touch preps: ADENOCARCINOMA, ACINAR PATTERN, LUNG TISSUE D MW/ D [id number], 36546, 39318 MACROSCOPIC Specimen (1) is desig nated "right lung mass" and consists of two aspirate smear slides to be staine d for cytologic evaluation and aspirate fluid to be concentrated and processed for cytologic evaluation. A cell block is prepared. Specimen (2) is mariah gnated "right lung mass" and consists of five touch prep slides to be stained for cytologic evaluation as well as core biopsy material. Received in formali n labeled with the patient's name and "R lung" are thin needle biopsies of sifuentes -red tissue measuring up to 1.1 cm in length with diameters less than 0.1 cm. The tissue is submitted as (2). GROSS PERFORMED AT [facility] [address] [place] [address] (p)[phone] MICROSCOPIC All of the stains, including any controls performed, stain appropriately. MICROSCOPIC PERFORMED AT [facility] [address] [place] [address] ([phone] PERFORMING SITE Diagnosis performed at: [facility] ROXY [address] [place] [address] CONTINUED ON NEXT PAGE RUN DATE: 08/19/19 [facility] PAGE 3 RUN TIME: 1736 Specimen Inquiry RUN USER: INTERFACE SPEC #: [id number] PATIENT: GUILHERME JANSEN #[id number] (Ken nued) PERFORMING SITE (Continued) [phone] Signed SIGNATURE ON FILE Ericka Voss MD 08/19/19 1736 END OF REPORT [id number] 17:36:00 RUN DATE: 08/30/19 [facility] PAGE 1 RUN TIME: 856 Specimen Inqui ry RUN USER: INTERFACE PATIENT: GUILHERME JANSEN ACCT #: [id number] [facility] #: [id number] AGE/SX: 84/M ROOM: [facility] RE08/14/19REG DR: Yasemin Espinal MD : 37 BED: A DIS: 08/29/19 STATUS: DIS IN TLOC: SPEC #: [id number] RECD: 08/17/19 STATUS: DHIRAJ REQ #: [id number] JOEY: 08/17/19- SUBM DR: Yasemin Espinal MD ENTERED: 08/17/19 SP TYPE: LUNG OTHR DR: Sudarshan Brunson MD, Ramon A MD Quraishi, Mohammed A MD TUMOR REGISTRYORDERED: GROSS COPIES TO: Yasemin Espinal MD [address] [place] [address] [place] [address] [facility] [address] [place] [address] Tra Moran MD [address] [place], [place] [address] Asad Ayoub MD [address] [facility] [address] [place], [place] [id number] TUMOR REG ISTRY MARKERS: MALIGNANCY PROCEDURES: GROSS (08/19/19-1509) TISSUES: 1 . LUNG, NOS - RIGHT LUNG RINSE, 4 SMEARS 2. LUNG, NOS - RIGHT LUNG BX, 3 TP CONTINUED ON NEXT PAGE --------- ---RUN DATE: 08/30/19 [facility] PAGE 2 RUN TIME: 0857 Specimen Inquiry RUN USER: INTERFACE SPEC #: [id number] PATIENT: INDERJITGUILHERME MALAIKA SIMPSON #[id number] (Continued) ADDENDUM FINDINGS Camille blanco #1 Entered: 08/29/19-1351 Reports are received from [facility] Accession/Case No: [id number] and the interpretations are as leora w: Molecular Genetics EGFR Mutation Analysis Test Result Mutations EGFR Mutation EGFR Exon 18 Not Detected N/A EGFR Exon 19 Not Detected N/A EGFR Exon 20 T790M Not Detected N/A EGFR Exon 20 Other Mutations Not Detected N/A EGFR Exon 21 Not Detected N/A Clinical Significance: Pa tammynts with non-small cell lung cancer (NSCLC) and mutations in EGFR exons 18, 1 9, 20 or 21 usually respond to anti-EGFR tyrosine kinase inhibitors (TKIs) and have longer survival when compared to EGFR mutation-negative patients. However, patients being treated with TKIs may develop acquired resistance with secondary mutations in exon 20, such as T790M or, less commonly, L747S, D761Y and T854A. NSCLCs with exon 20 mutations, such as T790M mutation, are usually resistant to first generation (erlotinib, gefitinib) and second generation (afatinib, dacomitinib, neratinib) anti-EGFR TKIs, but may respond to third generation TKI s, such as osimertinib. The less common resistance mutations (e.g. L747S, D761Y and T854A) may respond to second or third generation irreversible TKIs based on early studies. Most EGFR exon 20 insertions are resistant to EGFR TKIs with the exception of p.[id number], which is associated with increased sensitivity to EGFR TKIs Methodology: DNA was isolated from cells or microdissection- enriched FFPE tissue. Formalin-fixed, paraffin-embedded tumor tissue sections were deparaffinized and DNA was isolated. EGFR tyrosine kinase domain mutations were evaluated in the entirety of exons 18 to 21. The patient s sequence is c ompared to the EGFR sequence database [id number]. This assay is by [place] sequen cing method with Locked Nucleic Acid (FISHER REEF NET) for T790M. The sensitivity for detec ting the T790M mutation in exon 20 is at least 3% with the remaining mutations having a sensitivity of 10 to 15% for detecting mutated EGFR DNA in a wild-type background. Various factors including quantity and quality of nucleic acid, sa mple preparation and sample age can affect assay performance. References: 1 . Argelia RAMSEY, et al. Epidermal growth factor receptor mutations in how-vrmmp-eyll lung cancer: implications for treatment and tumor biology. J Clin Oncol. 2005; 23:3227-34. 2. Carlyn MEJIA, et al. Activating mutations in the epidermal growth fa ctor receptor CONTINUED ON NEXT PAGE ------ ------RUN DATE: 08/30/19 [facility] PAGE 3 RUN TIME: 856 Specimen Inquiry RUN USER: INTERFACE SPEC #: [id number] PATIENT: GUILHERME JANSEN #[id number] (Continued) ADDENDUM FINDINGS (Continued) underlying responsiveness of gfm-rnqmk-afxm lung cancer to ge fitinib. N Engl J Med. 2004; 350:2129-39. 3. Renetta LV, et al. Response to tr eatment and survival of patients with non-small cell lung cancer undergoing [facility] EGFR mutation testing. Oncologist. 2007;12:90-8. 4. Radha MATHEW, et al. EGFR m utations in lung cancer: correlation with clinical response to gefitinib therap y. Science. 2004; 304:4574-7739. 5. Junior CRISTOBAL, et al. Differential responses to erlotinib in epidermal growth factor receptor (EGFR)-mutated lung cancers with acquired resistance to gefitinib carrying the L747S and T790M secondary mutatio ns. J Clin Oncol. 2008; 26:1182-4. 6. Deirdre Kemp, Sue F, Gabriela B, et al. Phase 2 Study of the HSP-90 Inhibitor DUS076 in Previously Treated and Molecularly D efined Patients with Advanced Non-Small Cell Lung Cancer. J Thorac Oncol. 2018; 13(4):576-584. Test/Panel MolDX CPT AMA CPT EGFR Mutation Analysis 21605 [id number] Electronic Signature Betty Lanza MD, PhD, Pathologist The Technical Component Processing, Analysis and Professional Component of this test was comp leted at [facility], [address] [place] [address] / [address] / / CLIA #[id number] / Mortgage Funder(s): Sydney Chopra M.D. The pe rformance characteristics of this test have been determined by [facility]. This test has not been approved by the FDA. The FDA has determined suc h clearance or approval is not necessary. This laboratory is CLIA certified to perform high complexity clinical testing. Images that may be included withi n this report are contact representative of the patient but not all testing in its enti rety and should not be used to render a result. The CPT codes provided with our test descriptions are based on MolDX and AMA guidelines and are for informatio nal purposes only. Correct CPT coding is the sole responsibility of the billing libertarian. Please direct any questions regarding coding to the payer being billed. FISH Analysis ALK Lung Results: Negative Interpretation: ALK Rearrangement: Not Detected (Negative) FISH probe signals were within the no rmal reference range. An ALK gene rearrangement was observed in 0% of the nucle i scored and is below the threshold of positivity. This CONTINUED ON NEXT PAGE RUN DATE: 08/30/19 [facility] PAGE 4 RUN TIME: 856 Specimen Inquiry RUN USER: INTERFACE SPEC #: [id number] PATIENT: GUILHERME JANSEN #[id number] (Continued) ADDENDUM FINDINGS (Continued) represents a NEGATI VE result and suggests that ALK inhibitors are not indicated. Methodology: I nterphase FISH analysis was performed using the ALK Break Apart FISH Probe Kit. Along with fluorescence in situ hybridization (FISH), an H E stained slide was reviewed by a pathologist to identify the target area containing invasive tumor. FISH analysis of at least 50 interphase nuclei was performed within the marked target area. Reference: Vivienne S, Mango GALLAGHER. Personalized therapy for lung cancer: striking a moving target. [employer]. 2018;3(15). PMID: [id number] 9. Reference Ranges: ALK Lung: The sample is considered positive if >50% of the first 50 cells scored are positive, and considered negative if <10% cells are positive. If 10-50% of cells are positive, an additional 50 cells are evaluated by a second technologist. The sample is then considered positive if > or = 15% of all 100 cells scored are positive. Probe Set Detail: ALK Lung: nuc treasure(ALKx1 >1)[50] Comments: The results of this assay have been determined within the limitations described and should not be used interchangeably with resulting values from other methods or kits. These results are intended to be used as an adjunct to other concurrent testing in patient care management. Therefore, the presence or absence of a malignant disease cannot be determined based solely on these results. Clinical correlation is advised. Nuclei Scored: 50 Probe set Scoring method CPT Code # of Units ALK Lung Manual 48849 1 Electronic Signature Bart Delatorre M.D., Pathologist All controls were within expected ranges. The Technical Component Processing, Analysis and Professional Component of this test was completed at [facility], [address] [place] [address] / [id number] / [phone] / CLIA #[id number] / Mortgage Funder(s): Sydney Chopra M.D. [email or web address] FISH test uses either FDA cleared and/or analyte specific reagent (ASR) probes. This test was developed and its performance characteristics determined by the performing laboratory. It has not been cleared or approved by the U.S. Food and Drug Administration (FDA). The FDA has determined that such clearance or approval is not necessary. This test is used for clinica purposes and should not be regarded as investigational or for research. This laboratory is regulated under CLIA '88 as qualified to perform high complexity testing. Interphase FISH does not include examination of the entire chromosomal complement. CONTINUED ON NEXT PAGE RUN DATE: 08/30/19 [facility] PAGE 5 RUN TIME: 0857 Specimen Inquiry RUN USER: INTERFACE SPEC #: [id number] PATIENT: GUILHERME JANSEN #[id number] (Continued) AD DENDUM FINDINGS (Continued) Images that may be included within this r eport are contact representative of the patient but not all testing in its entirety and should not be used to render a result. The CPT codes provided with our test d escriptions are based on AMA guidelines and are for informational purposes only . Correct CPT coding is the sole responsibility of the billing libertarian. Please di rect any questions regarding coding to the payer being billed. Addendum Signed SIGNATURE ON FILE Ericka Voss MD 08/30/19 0857 CLINICAL HISTORY COLLECTION DATE: 08/17/19 HISTORY RIGHT LUNG MA SS FINAL DIAGNOSIS Right lung, fine needle aspirate biopsy: PE RIPHERAL BLOOD ELEMENTS ONLY SPECIMEN NONDIAGNOSTIC Right lung, fine needle aspirate core biopsy and touch preps: ADENOCARCINOMA, ACINAR PATTERN, LUNG TISSUE DMW/ D [id number], 22020, 78709 MACROSCOPIC Specimen (1) is designated "right lung mass" and consists of two aspirate smear slides to be stained for cytologic evaluation and aspirate flu id to be concentrated and processed for cytologic evaluation. A cell block is prepared. Specimen (2) is designated "right lung mass" and consists of fi ve touch prep slides to be stained for cytologic evaluation as well as core bi opsy material. Received in formalin labeled with the patient's name and "R lauren ng" are thin needle biopsies of sifuentes-red tissue measuring up to 1.1 cm in lengt h with diameters less than 0.1 cm. The tissue is submitted as (2). MARIO S PERFORMED AT [facility] [address] [place] [address] [phone] CONTINUED ON NEXT PAGE RUN DATE: 08/30/19 [facility] PAGE 6 RUN TIME: 085 7 Specimen Inquiry RUN USER: INTER FACE SPEC #: [id number] PATIENT: GUILHERME JANSEN #[id number] (Con tinued) MICROSCOPIC All of the stains, including any c ontrols performed, stain appropriately. MICROSCOPIC PERFORMED AT [facility] [address] [place] [address] [phone])[phone] PERFORMING SITE Diagnosis performed at: [facility] [place] [address] [place] [address] ----- ------- Signed SIGNATURE ON FILE Ericka Voss MD 1736 END OF REPORT PLEURAL [id number] 17:24:00 RUN DATE: 08/19/19 [place] [facility] PAGE 1 RUN TIME: 1724 Specimen Inqui ry RUN USER: INTERFACE PATIENT: GUILHERME JANSEN ACCT #: [id number] LOC: [facility] U #: [id number] AGE/SX: 84/M ROOM: [facility] RE08/14/19[facility] DR: Yasemin Espinal MD : 36 BED: B DIS: STATUS: ADM IN TLOC: SPEC #: [id number] RECD: 08/16/19 STATUS: DHIRAJ RECollette #: [id number] JOEY: 08/15/19 DR: Britton Mata MD ENTERED: 08/16/19 SP TYPE: PLEURAL FL OTHR DR: Sudarshan Brunson MD, Ramon A MD Quraishi, Mohammed A MDORDERED: GROSS COPIES TO: Sudarshan Brunson MD [address] [facility] [address] [place] [address] Ra mamadou Moran MD [address] [place] [address] Thomas Ayoub MD [address] [place] [address] Britton Clifton MD [address] [place] [address] PROCEDU RES: GROSS (08/19/19-1107) TISSUES: PLEURAL FLUID, NOS - RIGHT 8 [facility] H[facility] COLLECTION DATE: 08/15/19 PLEURAL EFFUSION COMMENT Two smear slides, a cytospin and two cell blocks are prep ared from the fluid. Mildly increased numbers of mixed inflammatory cells and macrophages are seen in a background of blood. Occasional cells compatible wit h mesothelial cells are also present. Rare atypical cells are present that hav e markedly enlarged, hyperchromatic round to ovoid nuclei and little cytoplasm. The low number of atypical cells precludes definitive CONTINUED ON NEXT PAGE RUN DATE: 08/19/19 [facility] PAGE 2 RUN TIME: 1724 Specimen Inquiry RUN USER: INTERFACE SPEC #: [id number] PATIENT: GUILHERME JANSEN #[id number] (Continued) COMMENT (Continued) diagnosis but the f indings are considered to be suspicious for malignancy. Similar atypical cells are identified in the pleural fluid specimen reviewed in the clinical laborato ry. If a discrete, radiographically identified lesion is present, biopsy may be diagnostically useful. Clinical correlation is necessary. Intradepartme ntal consultation: DMW. MICROSCOPIC PERFORMED AT [facility] [address] [place] [address] [phone] FINAL DIAGNOSIS Right pleural fluid, cytology: SUSPICIO US FOR MALIGNANCY FEW LARGE CYTOLOGICALLY ATYPICAL CELLS IN BACKGROUND OF BLOOD WITH SCATTERED ACUTE AND CHRONIC INFLAMMATORY CELLS AND MACROPHA GES RRB/sulaiman D [address], 53874 MACROSCOPIC The spec imen is received labeled as "right pleural fluid", and consists of 8 mL of yel low fluid for concentration and evaluation. GROSS PERFORMED AT [facility] [address] [place] [address] [phone])[phone] MICROSCOPIC All of the stain s, including any controls performed, stain appropriately. MICROSCO PIC PERFORMED AT [facility] [address] [place] [address] [phone] CONTINUED ON NEXT PAGE RUN DATE: 08/19/19 [place] - Lab PAGE 3 RUN TIME: 1724 Specimen Inquiry RUN USER: INTERFACE SPEC #: [id number] PATIENT: GUILHERME JANSEN #[id number] (Continued) PERFORMING SITE Diagnosis performed at: [facility] [address] [facility], [place] [id number] Signed SIGNATURE ON FILE Eulalio Washington MD 08/19/19 1724 ---- -------- END OF REPORT [id number] 16:26:00* Test Item Value Reference Range Interpretation Comments GLUBED (test code = GLUBED) 102 mg/dL 74-106 N Performed by certified rewind operator at [facility] - XR CHEST 1 [id number] 16:17:00 FAX: Yasemin Espinal MD [phone] [place]: St: ADM FAX: Tra Anthony [phone] Name: GUILHERME JANSEN [facility] : 1935 Age/S: 84/M [address] [facility] Unit #: [id number] Loc: V.40[address] [place] [address] Phys: Britton Mata MD Acct: [id number] Dis Date: Status: ADM IN PHONE #: [phone] Exam Date: 08/19/2019 8904 FAX #: [phone] Reason: PTX after thoracentesis; EXAMS: CPT CODE: [id number] XR CHEST 1 V 73487 REASON FOR EXAM: PTX after thoracentesis; EXAM ORDER DATE: 08/19/2019 3:37 PM Ordering: Britton Mata MD Attending:Yasemin Espinal MD Location:[facility] PROCEDURE: - XR CHEST 1 V COMPARISON: 08/17/2019 FINDINGS: Portable AP frontal view of the chest obtained at 3:54 PM shows clear lungs without evidence of consolidation. Stable appearance of the left subclavian pacemaker. The heart size is within normal limits. Pulmonary vasculatures are unremarkable. IMPRESSION: Hyperinflated lungs with 5% right apical pneumothorax. Stable appearance of the right chest tube and smal l right pleural effusion. at 1617 Reported and signed by: Yonathan kemp M.D. CC: Yasemin Espinal MD; Tra Moran MD Technologist: RT GAGAN(R) Trnnevar d Date/Time/By: 08/19/2019 (5923) : By: CarinVTL Orig Print D/T: S: 0 08/19/2019 (7254) PAGE 1 Signed Re port BODY FLUID CELL CT/[id number] 14:49:00* Test Item Value Reference Range Interpretation Comments FLUID SOURCE (test code = SOURCEFL) PLEURAL FLD FLUID COLOR (test code = COLFL) PINKISH COLORLESS FLUID APPEARANCE (test code = APPFL) CLOUDY FLUID WBC AUTO (test code = WBCFLA) 380 cells/uL FLUID RBC AUTO (test code = RBCFLA) 6000 cells/uL FLUID TOTAL CELLS (test code = TCFL) 433 cells/uL >0 Fluid WBC RBC PMN% MN%Type cells/uL cells/uL CSF (0-5) n/a (2+/-4) (90+/-20)Peritoneal n/a n/a n/a n/aPleural n/a n/a n/a n/aSynovial <200 n/a <25% <75% CSF (0-30) n/a (4+/-4) (90+/-20) FLUID POLY (test code = POLYFL) 2.0 % FLUID LYMPHOCYTE (test code = LYMPHFL) 38.0 % FLUID MACROPHAGE (test code = MACFL) 54.0 % FLUID OTHER CELL (test code = OTHERFL) 6.0 % FLUID COMMENT (test code = COMFL) PATHOLOGST.TO REVIEW TOTAL CELLS COUNTED ON DIFF (test code = TOTCELLFL) 100 cells REVIEWED BY (test code = REVIEW) PATHOLOGIST Reviewed by Dr Eulalio DunlapTYPICAL ALLS PRESENT REFER TO S-1381-20 [id number] 12:09:00* Test Item Value Reference Range Interpretation Comments GLUBED (test code = GLUBED) 137 mg/dL 74-106 H [facility] [id number] 08:36:00* Test Item Value Reference Range Interpretation Comments GLUBED (test code = GLUBED) 97 mg/dL 74-106 N [facility]formed by [facility] COMPREHENSIVE METABOLIC [id number] 06:34:00* Test Item Value Reference Range Interpretation Comments SODIUM (test code = NA) 136 mmol/L 136-145 N POTASSIUM (test code = K) 3.9 mmol/L 3.5-5.1 N CHLORIDE (test code = CL) 103.0 mmol/L 98-107 N CARBON DIOXIDE (test code = CO2) 27.0 mmol/L 21-32 N ANION GAP (test code = GAP) 9.9 10-20 L GLUCOSE (test code = GLU) 137 mg/dL 74-106 H BLOOD UREA NITROGEN (test code = BUN) 16 mg/dL 7-18 N GLOMERULAR FILTRATION RATE (test code = GFR) > 60 mL/min >=60 Estimated GFR by using Modified MDRD formula.Chronic kidney disease is defined as either kidney damageor GFR <60 mL/min/1.73 m2 for >3 months. CREATININE (test code = CREAT) 0.80 mg/dL 0.7-1.3 N BUN/CREATININE RATIO (test code = BUN/CREA) 20.0 10-20 N TOTAL PROTEIN (test code = PROT) 6.9 gram/dL 6.4-8.2 N ALBUMIN (test code = ALB) 2.8 g/dL 3.4-5.0 L GLOBULIN (test code = GLOB) 4.1 gram/dL 2.7-4.2 N ALBUMIN/GLOBULIN RATIO (test code = A/G) 0.7 0.75-1.50 L CALCIUM (test code = CA) 9.4 mg/dL 8.5-10.1 N BILIRUBIN TOTAL (test code = BILT) 0.50 mg/dL 0.0-1.0 N SGOT/AST (test code = AST) 21 IUnit/L 15-37 N SGPT/ALT (test code = ALT) 15 IUnit/L 12-78 N ALKALINE PHOSPHATASE TOTAL (test code = ALKP) 109 IUnit/L 45-117 N Note change in reference range due to change in reagent. COMPREHENSIVE METABOLIC [id number] 06:19:00* Test Item Value Reference Range Interpretation Comments SODIUM (test code = NA) 136 mmol/L 136-145 N POTASSIUM (test code = K) 3.9 mmol/L 3.5-5.1 N CHLORIDE (test code = CL) 103.0 mmol/L 98-107 N CARBON DIOXIDE (test code = CO2) mmol/L 21-32 ANION GAP (test code = GAP) 10-20 GLUCOSE (test code = GLU) mg/dL 74-106 BLOOD UREA NITROGEN (test code = BUN) mg/dL 7-18 GLOMERULAR FILTRATION RATE (test code = GFR) mL/min >=60 CREATININE (test code = CREAT) mg/dL 0.7-1.3 BUN/CREATININE RATIO (test code = BUN/CREA) 10-20 TOTAL PROTEIN (test code = PROT) gram/dL 6.4-8.2 ALBUMIN (test code = ALB) g/dL 3.4-5.0 GLOBULIN (test code = GLOB) gram/dL 2.7-4.2 ALBUMIN/GLOBULIN RATIO (test code = A/G) 0.75-1.50 CALCIUM (test code = CA) mg/dL 8.5-10.1 BILIRUBIN TOTAL (test code = BILT) mg/dL 0.0-1.0 SGOT/AST (test code = AST) IUnit/L 15-37 SGPT/ALT (test code = ALT) IUnit/L 12-78 ALKALINE PHOSPHATASE TOTAL (test code = ALKP) IUnit/L 45-117 CBC W/AUTO [id number] 05:58:00* Test Item Value Reference Range Interpretation Comments WHITE BLOOD CELL (test code = WBC) 7.4 K/mm3 4.5-12.5 N RED BLOOD CELL (test code = RBC) 4.58 mill/mm3 4.0-5.8 N HEMOGLOBIN (test code = HGB) 13.8 gram/dL 13.0-17.5 N HEMATOCRIT (test code = HCT) 40.0 % 42.0-52.0 L MEAN CELL VOLUME (test code = MCV) 87.3 fL 80-98 N MEAN CELL HGB (test code = MCH) 30.1 picogram 27.0-33.0 N MEAN CELL HGB CONCETRATION (test code = MCHC) 34.5 gram/dL 33.0-36. 0 N RED CELL DISTRIBUTION WIDTH (test code = RDW) 13.2 % 11.6-16. 2 N RED CELL DISTRIBUTION WIDTH SD (test code = RDW-SD) 41.4 fL 37 .0-51.0 N PLATELET COUNT (test code = PLT) 227 K/mm3 150-450 N MEAN PLATELET VOLUME (test code = MPV) 10.2 fL 6.7-11.0 N NEUTROPHIL % (test code = NT%) 55.6 % 39.0-69.0 N IMMATURE GRANULOCYTE % (test code = IG%) 0.5 % 0.0-5.0 N LYMPHOCYTE % (test code = LY%) 25.5 % 25.0-55.0 N MONOCYTE % (test code = MO%) 12.3 % 0.0-10.0 H EOSINOPHIL % (test code = EO%) 5.4 % 0.0-5.0 H BASOPHIL % (test code = BA%) 0.7 % 0.0-1.0 N NUCLEATED RBC % (test code = NRBC%) 0.0 % 0-0 N NEUTROPHIL # (test code = NT#) 4.13 K/mm3 1.8-7.7 N IMMATURE GRANULOCYTE # (test code = IG#) 0.04 x10 3/uL 0-0.03 H LYMPHOCYTE # (test code = LY#) 1.89 K/mm3 1.0-5.0 N MONOCYTE # (test code = MO#) 0.91 K/mm3 0-0.8 H EOSINOPHIL # (test code = EO#) 0.40 K/mm3 0.0-0.5 N BASOPHIL # (test code = BA#) 0.05 K/mm3 0.0-0.2 N NUCLEATED RBC # (test code = NRBC#) 0.00 K/mm3 0.0-0.1 N CBC W/AUTO [id number] 05:57:00* Test Item Value Reference Range Interpretation Comments WHITE BLOOD CELL (test code = WBC) K/mm3 4.5-12.5 RED BLOOD CELL (test code = RBC) mill/mm3 4.0-5.8 HEMOGLOBIN (test code = HGB) 13.8 gram/dL 13.0-17.5 N HEMATOCRIT (test code = HCT) % 42.0-52.0 MEAN CELL VOLUME (test code = MCV) fL 80-98 MEAN CELL HGB (test code = MCH) picogram 27.0-33.0 MEAN CELL HGB CONCETRATION (test code = MCHC) gram/dL 33.0-36. 0 RED CELL DISTRIBUTION WIDTH (test code = RDW) % 11.6-16. 2 RED CELL DISTRIBUTION WIDTH SD (test code = RDW-SD) fL 37 .0-51.0 PLATELET COUNT (test code = PLT) K/mm3 150-450 MEAN PLATELET VOLUME (test code = MPV) fL 6.7-11.0 NEUTROPHIL % (test code = NT%) % 39.0-69.0 IMMATURE GRANULOCYTE % (test code = IG%) % 0.0-5.0 LYMPHOCYTE % (test code = LY%) % 25.0-55.0 MONOCYTE % (test code = MO%) % 0.0-10.0 EOSINOPHIL % (test code = EO%) % 0.0-5.0 BASOPHIL % (test code = BA%) % 0.0-1.0 NEUTROPHIL # (test code = NT#) K/mm3 1.8-7.7 LYMPHOCYTE # (test code = LY#) K/mm3 1.0-5.0 MONOCYTE # (test code = MO#) K/mm3 0-0.8 EOSINOPHIL # (test code = EO#) K/mm3 0.0-0.5 BASOPHIL # (test code = BA#) K/mm3 0.0-0.2 [id number] 21:02:00* Test Item Value Reference Range Interpretation Comments GLUBED (test code = GLUBED) 91 mg/dL 74-106 N [facility] [id number] 16:51:00* Test Item Value Reference Range Interpretation Comments GLUBED (test code = GLUBED) 128 mg/dL 74-106 H Per[facility] by certified rewind [facility] [id number] 12:17:00* Test Item Value Reference Range Interpretation Comments GLUBED (test code = GLUBED) 109 mg/dL 74-106 H [facility] by certified [facility] [id number] 08:20:00* Test Item Value Reference Range Interpretation Comments GLUBED (test code = GLUBED) 129 mg/dL 74-106 H [facility] certified [facility] [id number] 20:48:00* Test Item Value Reference Range Interpretation Comments GLUBED (test code = GLUBED) 122 mg/dL 74-106 H [facility] by certified [facility] operator [facility] [id number] 16:57:00* Test Item Value Reference Range Interpretation Comments GLUBED (test code = GLUBED) 213 mg/dL 74-106 H [facility] - XR CHEST 1 [id number] 15:31:00 FAX: Yasemin Espinal MD [phone] [place]: B St: ADM FAX: Tra Anthony [phone] Name: GUILHERME JANSEN [facility] : 1935 Age/S: 84/M [address] [facility] Unit #: [id number] Loc: V.4032 [place] [address] Phys: Britton Mata MD Acct: [id number] Dis Date: Status: ADM IN PHONE #: [phone] Exam Date: 08/17/2019 1521 FAX #: [phone] Reason: POST LUNG BX EXAMS: CPT CODE: [id number] XR CHEST 1 V 35340 REASON FOR EXAM: POST LUNG BX EXAM ORDER DATE: 08/17/2019 3:00 PM Ordering: Britton Mata MD Attending:Yasemin Espinal MD Location:[facility] PROCEDURE: - XR CHEST 1 V COMPARISON: 08/15/2019 FINDINGS: Portable AP frontal view of the chest obtained at 3:09 PM shows patchy airspace opacity of the right lung. There is no evidence of effusion. The heart size is within normal limits. Pulmonary vasculatures are unremarkable. Stable appearance of the left subclavian ICD. IMPRESSION: Small right pneumothorax (5%) with small caliber pigtail chest tube present E lectronically Signed by Concepcion Reich on 08/17/2019 at 1531 Reported and signed by: Yonathan Reich M.D. CC: Yasemin Espinal MD; Tra Moran MD Technologist: ADOLFO TEMPLE RT(R) Trnscrd Date/Time/By: 08/17/2019 (1531) : By: tSTERLINGRLauritaV TL Orig Print D/T: S: 08/17/2019 (4404) PAGE 1 Signed Report - SP PERC PLEUR ENID [id number] 15:28:00 Name: GUILHERME JANSEN [facility] : 1935 Age/S: 84 / M [address] Unit #: [id number] Loc: [place] [address] Phys: Yasemin Espinal MD Acct: [id number] Dis Date: Status: ADM IN PHONE #: [phone] Exam Date: 08/17/2019 1235 FAX #: [phone] Reason: EXAMS: CPT CODE: [id number] SP PERC PLEUR DRN W/IMAG 26691 Fluoro Time: DAP (Gy m2): Air Kerma (mGy): EXAM: CT-guided insertion of a chest tube for treatment of a pneumothorax and CT-guided lung biopsy; INFORMATION: COPD; right lower lobe lung mass; status post large volume right-sided thoracentesis yesterday; patient has been referred for biopsy of the right lower lobe lung mass. TECHNIQUE and findings: CT dose reduction protocol; 2.5 mm axial scans; Benefits and risks of procedure including risks of pulmonary hemorrhage and of pneumothorax with possible need for chest tube, were explained to the patient and the patient's daughter and informed consent was obtained. The patient was placed prone on the CT table and localization scans were obtained. They showed a small pneumothorax, approximately 15%. This is likely due to inability of the lung to fully reexpand after thoracentesis. The pa tient's skin in the right posterior chest region was prepped and draped in the usual sterile fashion. Xylocaine was administered and a 10 English pig tail catheter was then inserted into the pleural cavity for treatment of a pneumothorax. This chest tube was sutured to the skin and connected to Pl eur-evac drainage. Subsequently, a 20-gauge Chiba needle was directed into the target lesion in the anterior aspect of the right lower lobe. Correct needle position was confirmed with additional scans. Fine-needle aspirati on biopsy was performed and 3 passes were made with a 20-gauge core biopsy needle. Tissue material was sent to the pathology lab. Post p rocedure scans showed a large, approximately 30-40% pneumothorax. Orders w ere given to put the Pleur-evac drainage system on continuous wall suction . The patient remained stable throughout the procedure. IM PRESSION: 1. Successful insertion of a chest tube with CT guidance for t reatment of a right sided pneumothorax. 2. Successful CT-guided fine-needle aspiration and 20-gauge core biopsy of a right lower lobe lauren ng mass. Location code: [facility] PAGE 1 Signed Report (CONTINUED) Name: GUILHERME JANSEN [facility] : 1935 Age/S: 84 / M [address] [facility] Unit #: [id number] Loc: [place] [address] Phys: Yasemin Espinal MD Acct: [id number] Dis Date: Status: A DM IN PHONE #: [phone] Exam Date: 08/06 1236 FAX #: [phone] Reason: EXAMS: CPT CODE: [id number] SP PERC PLEAMINATA ROSSI W/IMAG 325 57 Fluoro Time: DAP (Gy m2): Air Kerma (mGy): <Continued> at 1528 Reported and signed by: Britton Mata M.D. CC: Yasemin Espinal MD; Tra Moran MD Technologist: NORAH ELIAS POSTULANT Trnscb Date/Time: 08/17/2019 (0835) [place] PAGE 2 Signed Report [facility] 2019-08-17 15:28:00 Name: GUILHERME JANSEN [facility] : 1935 Age/S: 84 / M [address] [facility] Unit #: [id number] Loc: [place] [address] Phys: Yasemin Espinal MD Acct: [id number] Dis Date: Status: ADM IN PHONE #: [phone] Exam Date: 08/17/2019 1231 FAX #: [phone] Reason: TUBE [facility] EXAMS: CPT CODE: [id number] CT GUID [facility] [address] EXAM: CT-guided insertion of a chest tube for treatment of a pneumothorax and CT-guided lung biopsy; INFORMATION: COPD; right lower lobe lung mass; status post large volume right-sided thoracentesis yesterday; patient has been referred for biopsy of the right lower lobe lung mass. TECHNIQUE and findings: CT dose reduction protocol; 2.5 mm axial scans; Benefits and risks of procedure including risks of pulmonary hemorrhage and of pneumothorax with possible need for chest tube, were explained to the patient and the patient's daughter and informed consent was obtained. The patient was placed prone on the CT table and localization scans were obtained. They showed a small pneumothorax, approximately 15%. This is likely due to inability of the lung to fully reexpand after thoracentesis. The patient's skin in the right posterior chest region was prepped and draped in the usual sterile fashion. Xylocaine was administered and a 10 English pigtail catheter was then inserted into the pleural cavity for treatment of a pneumothorax. This chest tube was sutured to the skin and connected to Pleur-evac drainage. Subsequently, a 20-gauge Chiba needle was directed into the target lesion in the anterior aspect of the right lower lobe. Correct needle position was confirmed with additional scans. Fine-needle aspiration biopsy was performed and 3 passes were made with a 20-gauge core biopsy needle. Tissue material was sent to the pathology lab. Post procedure scans showed a large, approximately 30-40% pneumotho rax. Orders were given to put the Pleur-evac drainage system on continuous wall suction. The patient remained stable throughout the procedure. IMPRESSION: 1. Successful insertion of a chest tube with CT g uidance for treatment of a right sided pneumothorax. 2. Successf ul CT-guided fine-needle aspiration and 20-gauge core biopsy of a right lower lobe lung mass. Location code: [facility] PAGE 1 Signed Report (CONTINUED) Name: FR BRENDA JANSEN [facility] : 1935 Age/S: 84 / M [address] [facility] Unit #: [id number] Loc: [place] [address] Phys: Yasemin Espinal MD Acct: [id number] Dis Date: Status: ADM IN PHONE #: [phone] Exa m Date: 08/17/2019 1231 FAX #: [phone] Reason: TU BE [facility] EXAMS: CPT CODE: [id number] CT GUID [facility] [address] <Continued> at 1528 Reported and signed by: Britton Mata M.D. CC: Yasemin Espinal MD; Tra Moran MD Technologist:RT Neo(R),CT CTDI: DLP: Trnscb Date/Time: 08/17/2019 (1528) tARYW Orig Print D/T: S: 08/17/2019 (1532) PAGE 2 Signed Report - CT GUID NDL [id number] 15:28:00 Name: GUILHERME JANSEN [facility] : 1935 Age/S: 84 / M [address] [facility] #: [id number] Loc: [place] [address] Phys: Yasemin Espinal MD Acct: [id number] Dis Date: Status: ADM IN PHONE #: [phone] Exam Date: 08/17/2019 1231 FAX #: [phone] Reason: LUNG BIOPSY EXAMS: CPT CODE: [id number] CT [facility] [address] EXAM: CT-guided insertion of a chest tube for treatment of a pneumothorax and CT-guided lung biopsy; INFORMATION: COPD; right lower lobe lung mass; status post large volume right-sided thoracentesis yesterday; patient has been referred for biopsy of the right lower lobe lung mass. TECHNIQUE and findings: CT dose reduction protocol; 2.5 mm axial scans; Benefits and risks of procedure including risks of pulmonary hemorrhage and of pneumothorax with possible need for chest tube, were explained to the patient and the patient's daughter and informed consent was obtained. The patient was placed prone on the CT table and localization scans were obtained. They showed a small pneumothorax, approximately 15%. This is likely due to inability of the lung to fully reexpand after thoracentesis. The patient's skin in the right posterior chest region was prepped and draped in the usual sterile fashion. Xylocaine was administered and a 10 English pigtail catheter was then inserted into the pleural cavity for treatment of a pneumothorax. This chest tube was sutured to the skin and connected to Pleur-evac drainage. Subsequently, a 20-gauge Chiba needle was directed into the target lesion in the anterior aspect of the right lower lobe. Correct needle position was confirmed with additional scans. Fine-needle aspiration biopsy was performed and 3 passes were made with a 20-gauge core biopsy needle. Tissue material was sent to the pathology lab. Post procedure scans showed a large, approximately 30-40% pneumotho rax. Orders were given to put the Pleur-evac drainage system on continuous wall suction. The patient remained stable throughout the procedure. IMPRESSION: 1. Successful insertion of a chest tube with CT g uidance for treatment of a right sided pneumothorax. 2. Successf ul CT-guided fine-needle aspiration and 20-gauge core biopsy of a right lower lobe lung mass. Location code: [facility] PAGE 1 Signed Report (CONTINUED) Name: FR INDERJIT BRENDA XAVIER [facility] : 1935 Age/S: 84 / M [address] [facility] Unit #: [id number] Loc: [place] [address] Phys: Yasemin Espinal MD Acct: [id number] Dis Date: Status: ADM IN PHONE #: [phone] Exa m Date: 08/17/2019 1231 FAX #: [phone] Reason: LAUREN NG BIOPSY EXAMS: CPT CODE: [id number] CT GUID NDL [facility] [id number] <Continued> at 1528 Reported and signed by: Britton Mata M.D. CC: Yasemin Espinal MD; Tra Moran MD Technologist:Yuli Gaytan,RT(R),CT CTDI: DLP: Trnscb Date/Time: 08/17/2019 (1528) t.SDR.GRW Orig Print D/T: S: 08/17/2019 (1532) PAGE 2 Signed Report BODY FLUID CELL [id number] 14:52:00* Test Item Value Reference Range Interpretation Comments FLUID SOURCE (test code = SOURCEFL) PLEURAL FLD FLUID COLOR (test code = COLFL) PINKISH COLORLESS FLUID APPEARANCE (test code = APPFL) CLOUDY FLUID WBC AUTO (test code = WBCFLA) 380 cells/uL FLUID RBC AUTO (test code = RBCFLA) 6000 cells/uL FLUID TOTAL CELLS (test code = TCFL) 433 cells/uL >0 Fluid WBC RBC PMN% MN%Type cells/uL cells/uL CSF (0-5) n/a (2+/-4) (90+/-20)Peritoneal n/a n/a n/a n/aPleural n/a n/a n/a n/aSynovial <200 n/a <25% <75% CSF (0-30) n/a (4+/-4) (90+/-20) FLUID POLY (test code = POLYFL) 2.0 % FLUID LYMPHOCYTE (test code = LYMPHFL) 38.0 % FLUID MACROPHAGE (test code = MACFL) 54.0 % FLUID OTHER CELL (test code = OTHERFL) 6.0 % FLUID COMMENT (test code = COMFL) PATHOLOGST.TO REVIEW TOTAL CELLS COUNTED ON DIFF (test code = TOTCELLFL) 100 cells REVIEWED BY (test code = REVIEW) PATHOLOGIST BODY FLUID CELL [id number] 14:13:00* Test Item Value Reference Range Interpretation Comments FLUID SOURCE (test code = SOURCEFL) PLEURAL FLD FLUID COLOR (test code = COLFL) PINKISH COLORLESS FLUID APPEARANCE (test code = APPFL) CLOUDY FLUID WBC AUTO (test code = WBCFLA) 380 cells/uL FLUID RBC AUTO (test code = RBCFLA) 6000 cells/uL FLUID TOTAL CELLS (test code = TCFL) 433 cells/uL >0 Fluid WBC RBC PMN% MN%Type cells/uL cells/uL CSF (0-5) n/a (2+/-4) (90+/-20)Peritoneal n/a n/a n/a n/aPleural n/a n/a n/a n/aSynovial <200 n/a <25% <75% CSF (0-30) n/a (4+/-4) (90+/-20) TOTAL CELLS COUNTED ON DIFF (test code = TOTCELLFL) cells REVIEWED BY (test code = REVIEW) PATHOLOGIST BODY FLUID CELL [id number] 14:11:00* Test Item Value Reference Range Interpretation Comments FLUID SOURCE (test code = SOURCEFL) FLUID COLOR (test code = COLFL) COLORLESS FLUID APPEARANCE (test code = APPFL) FLUID WBC (test code = WBCFL) per mm3 0-150 FLUID WBC AUTO (test code = WBCFLA) 380 cells/uL FLUID RBC (test code = RBCFL) per mm3 0-50 FLUID RBC AUTO (test code = RBCFLA) 6000 cells/uL FLUID TOTAL CELLS (test code = TCFL) 433 cells/uL >0 Fluid WBC RBC PMN% MN%Type cells/uL cells/uL CSF (0-5) n/a (2+/-4) (90+/-20)Peritoneal n/a n/a n/a n/aPleural n/a n/a n/a n/aSynovial <200 n/a <25% <75% CSF (0-30) n/a (4+/-4) (90+/-20) TOTAL CELLS COUNTED ON DIFF (test code = TOTCELLFL) cells REVIEWED BY (test code = REVIEW) PATHOLOGIST [id number] 08:21:00* Test Item Value Reference Range Interpretation Comments GLUBED (test code = GLUBED) 96 mg/dL 74-106 N [facility] COMPREHENSIVE METABOLIC [id number] 05:37:00* Test Item Value Reference Range Interpretation Comments SODIUM (test code = NA) 134 mmol/L 136-145 L POTASSIUM (test code = K) 3.5 mmol/L 3.5-5.1 N CHLORIDE (test code = CL) 102.0 mmol/L 98-107 N CARBON DIOXIDE (test code = CO2) 25.0 mmol/L 21-32 N ANION GAP (test code = GAP) 10.5 10-20 N GLUCOSE (test code = GLU) 93 mg/dL 74-106 N BLOOD UREA NITROGEN (test code = BUN) 19 mg/dL 7-18 H GLOMERULAR FILTRATION RATE (test code = GFR) > 60 mL/min >=60 Estimated GFR by using Modified MDRD formula.Chronic kidney disease is defined as either kidney damageor GFR <60 mL/min/1.73 m2 for >3 months. CREATININE (test code = CREAT) 0.80 mg/dL 0.7-1.3 N BUN/CREATININE RATIO (test code = BUN/CREA) 23.8 10-20 H TOTAL PROTEIN (test code = PROT) 7.4 gram/dL 6.4-8.2 N ALBUMIN (test code = ALB) 3.0 g/dL 3.4-5.0 L GLOBULIN (test code = GLOB) 4.4 gram/dL 2.7-4.2 H ALBUMIN/GLOBULIN RATIO (test code = A/G) 0.7 0.75-1.50 L CALCIUM (test code = CA) 9.2 mg/dL 8.5-10.1 N BILIRUBIN TOTAL (test code = BILT) 0.60 mg/dL 0.0-1.0 N SGOT/AST (test code = AST) 19 IUnit/L 15-37 N SGPT/ALT (test code = ALT) 16 IUnit/L 12-78 N ALKALINE PHOSPHATASE TOTAL (test code = ALKP) 123 IUnit/L 45-117 H Note change in reference range due to change in reagent. CBC W/AUTO [id number] 04:39:00* Test Item Value Reference Range Interpretation Comments WHITE BLOOD CELL (test code = WBC) 10.3 K/mm3 4.5-12.5 N RED BLOOD CELL (test code = RBC) 4.89 mill/mm3 4.0-5.8 N HEMOGLOBIN (test code = HGB) 14.7 gram/dL 13.0-17.5 N HEMATOCRIT (test code = HCT) 42.3 % 42.0-52.0 N MEAN CELL VOLUME (test code = MCV) 86.5 fL 80-98 N MEAN CELL HGB (test code = MCH) 30.1 picogram 27.0-33.0 N MEAN CELL HGB CONCETRATION (test code = MCHC) 34.8 gram/dL 33.0-36. 0 N RED CELL DISTRIBUTION WIDTH (test code = RDW) 13.2 % 11.6-16. 2 N RED CELL DISTRIBUTION WIDTH SD (test code = RDW-SD) 41.2 fL 37 .0-51.0 N PLATELET COUNT (test code = PLT) 200 K/mm3 150-450 N MEAN PLATELET VOLUME (test code = MPV) 9.6 fL 6.7-11.0 N NEUTROPHIL % (test code = NT%) 57.1 % 39.0-69.0 N IMMATURE GRANULOCYTE % (test code = IG%) 0.5 % 0.0-5.0 N LYMPHOCYTE % (test code = LY%) 23.4 % 25.0-55.0 L MONOCYTE % (test code = MO%) 14.6 % 0.0-10.0 H EOSINOPHIL % (test code = EO%) 3.6 % 0.0-5.0 N BASOPHIL % (test code = BA%) 0.8 % 0.0-1.0 N NUCLEATED RBC % (test code = NRBC%) 0.0 % 0-0 N NEUTROPHIL # (test code = NT#) 5.90 K/mm3 1.8-7.7 N IMMATURE GRANULOCYTE # (test code = IG#) 0.05 x10 3/uL 0-0.03 H LYMPHOCYTE # (test code = LY#) 2.42 K/mm3 1.0-5.0 N MONOCYTE # (test code = MO#) 1.51 K/mm3 0-0.8 H EOSINOPHIL # (test code = EO#) 0.37 K/mm3 0.0-0.5 N BASOPHIL # (test code = BA#) 0.08 K/mm3 0.0-0.2 N NUCLEATED RBC # (test code = NRBC#) 0.00 K/mm3 0.0-0.1 N CBC W/AUTO [id number] 04:36:00* Test Item Value Reference Range Interpretation Comments WHITE BLOOD CELL (test code = WBC) K/mm3 4.5-12.5 RED BLOOD CELL (test code = RBC) mill/mm3 4.0-5.8 HEMOGLOBIN (test code = HGB) 14.7 gram/dL 13.0-17.5 N HEMATOCRIT (test code = HCT) 42.3 % 42.0-52.0 N MEAN CELL VOLUME (test code = MCV) fL 80-98 MEAN CELL HGB (test code = MCH) picogram 27.0-33.0 MEAN CELL HGB CONCETRATION (test code = MCHC) gram/dL 33.0-36. 0 RED CELL DISTRIBUTION WIDTH (test code = RDW) % 11.6-16. 2 RED CELL DISTRIBUTION WIDTH SD (test code = RDW-SD) fL 37 .0-51.0 PLATELET COUNT (test code = PLT) K/mm3 150-450 MEAN PLATELET VOLUME (test code = MPV) fL 6.7-11.0 NEUTROPHIL % (test code = NT%) % 39.0-69.0 IMMATURE GRANULOCYTE % (test code = IG%) % 0.0-5.0 LYMPHOCYTE % (test code = LY%) % 25.0-55.0 MONOCYTE % (test code = MO%) % 0.0-10.0 EOSINOPHIL % (test code = EO%) % 0.0-5.0 BASOPHIL % (test code = BA%) % 0.0-1.0 NEUTROPHIL # (test code = NT#) K/mm3 1.8-7.7 LYMPHOCYTE # (test code = LY#) K/mm3 1.0-5.0 MONOCYTE # (test code = MO#) K/mm3 0-0.8 EOSINOPHIL # (test code = EO#) K/mm3 0.0-0.5 BASOPHIL # (test code = BA#) K/mm3 0.0-0.2 [id number] 16:21:00* Test Item Value Reference Range Interpretation Comments GLUBED (test code = GLUBED) 146 mg/dL 74-106 H Performed by certified rewind operator at [facility] - NM BONE WHOLE [id number] 15:19:00 FAX: Yasemin Espinal MD [phone] [place]: St: [facility] FAX: Tra Anthony [phone] FAX: Asad Thomas [phone] Name: GUILHERME JANSEN [facility] : 1935 Age[facility]S: 84/M [address] [facility] Unit #: [id number] Loc: V.[address] [place] [address] Phys: Asad Ayoub MD Acct: [id number] Dis Date: Status: ADM IN [facility] #: [phone] Exam Date: 08/16/2019 1103 FAX #: [phone] Reason: lung cancer EXAMS: CPT CODE: [id number] NM BONE WHOLE BODY [address] HISTORY: lung cancer TECHNIQUE: 3 hour delayed anterior and posterior planar g radha camera imaging of the whole body was acquired after IV injection of 2 5.7 mCi TC 99m MDP. COMPARISON: CT of the chest August 13 FINDINGS: Expected radiopharmaceutical uptake within the axial and appendicular skeleton. No discrete focus of increased tr acer uptake is seen in the T4 vertebral body suggesting that the sclerotic lesion seen on the previous CT scan may be a bone island. H owever there is increased tracer uptake in T12 which corresponds to the sc lerotic lesions seen on the previous CT scan that is suspicious for bone m etastasis. 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 No other areas of increased bone tracer uptake . Location: [facility] at 1519 Reported and signed by: Aoy Gruber MD CC: Yasemin Espinal MD; Tra Moran MD; Asad Ayoub MD Technologist: Radha Bashir RT(N) Trnscrd Date/Time/By: 08/16/2019 (0385) : By: [email or web address] Orig Print D/T: S: 03/2020 (0183) PAGE 1 Signed Repo rt [id number] 11:44:00* Test Item Value Reference Range Interpretation Comments GLUBED (test code = GLUBED) 124 mg/dL 74-106 H Performed by certified rewind operator at [facility] PLEURAL FLD CELL [id number] 10:48:00* Test Item Value Reference Range Interpretation Comments FLUID WBC AUTO (test code = WBCFLA) 823 cells/uL FLUID RBC AUTO (test code = RBCFLA) 1000 cells/uL FLUID TOTAL CELLS (test code = TCFL) 860 cells/uL >0 Fluid WBC RBC PMN% MN%Type cells/uL cells/uL CSF (0-5) n/a (2+/-4) (90+/-20)Peritoneal n/a n/a n/a n/aPleural n/a n/a n/a n/aSynovial <200 n/a <25% <75% CSF (0-30) n/a (4+/-4) (90+/-20) PLEURAL FLD COLOR (test code = COLPL) YELLOW PLEURAL FLD APPEARANCE (test code = APPPL) CLEAR PLEURAL FLD POLY (test code = POLYPL) 1.0 % PLEURAL FLD LYMPHOCYTE (test code = LYMPHPL) 79.0 % PLEURAL FLD MACROPHAGE (test code = MACPL) 20.0 % TOTAL CELLS COUNTED ON DIFF (test code = TOTCELLFL) 100 cells REVIEWED BY (test code = REVIEW) YVON HOLLAND PATHOLOGIST LYMPHOCYTOSIS.SUGGEST FLOW CYTOMETRY IF CLINICALLY SUSPICIOUS FOR LYMPHOPROLIFERATIVE DISORDERS. PLEURAL FLD [id number] 10:48:00* Test Item Value Reference Range Interpretation Comments PLEURAL FLD PH (test code = PHPL) 7.5 PLEURAL FLD [id number] 10:48:00* Test Item Value Reference Range Interpretation Comments PLEURAL FLD GLUCOSE (test code = GLUPL) 107 MG/DL PLEURAL FLD TOTAL [id number] 10:48:00* Test Item Value Reference Range Interpretation Comments PLEURAL FLD TOTAL PROTEIN (test code = PROTPL) 5.6 gram/dL PLEURAL FLD [id number] 10:48:00* Test Item Value Reference Range Interpretation Comments PLEURAL FLD ALBUMIN (test code = ALBPL) 2.9 gram/dL PLEURAL FLD [id number] 10:48:00* Test Item Value Reference Range Interpretation Comments PLEURAL FLD LDH (test code = LDHPL) 249 IUnit/L PLEURAL FLD [id number] 10:48:00* Test Item Value Reference Range Interpretation Comments PLEURAL FLD AMYLASE (test code = AMYPL) 3773 Unit/L 25-125 H PLEURAL FLD [id number] 10:48:00* Test Item Value Reference Range Interpretation Comments PLEURAL FLD CHOLESTEROL (test code = CHOLPL) 60 MG/DL - SP THORACENTESIS [id number] 09:18:00 Name: GUILHERME JANSEN [facility] : 1935 Age/S: 84 / M [address] Unit #: [id number] Loc: [place] [address] Phys: Yasemin Espinal MD Acct: [id number] Dis Date: Status: ADM IN PHONE #: [phone] Exam Date: 08/15/2019 1518 FAX #: [phone] Reason: / EXAMS: CPT CODE: [id number] SP THORACENTESIS W/IMAG 11239 Fluoro Time: DAP (Gy m2): Air Kerma (mGy): EXAM: Ultrasound-guided thoracentesis; INFORMATION: Dyspnea; right lung mass, large right pleural effusion; TECHNIQUE AND FINDINGS: Informed consent was obtained and the patient was placed in upright sitting position. Ultrasound of the chest showed a large right pleural effusion. The patient's skin in the right posterior inferior and lateral chest wall region was prepped and draped in the usual sterile fashion. Xylocaine was administered and using so nographic guidance an 8 English pigtail catheter was inserted into the righ t pleural cavity. 2.2 L of pleural fluid were drained and samples were sen t to the lab. The drainage catheter was then removed. No complicatio ns. IMPRESSION: Successful ultrasound-guided large-volum e right-sided thoracentesis. Location code: [facility] at 0918 Reported and signed b y: Britton Mata M.D. CC: Yasemin Espinal MD; Tra Andersen MD Technologist: NORAH ELIAS POSTULANT Trnscb Date/Time: 08/16/2019 (917) t.TRICIAR.GRW Orig Print D/T: S: 08/16/2019 (920) PAGE 1 Signed Report [id number] 08:11:00* Test Item Value Reference Range Interpretation Comments GLUBED (test code = GLUBED) 144 mg/dL 74-106 H Performed by certified rewind operator at [facility] COMPREHENSIVE METABOLIC [id number] 06:59:00* Test Item Value Reference Range Interpretation Comments SODIUM (test code = NA) 138 mmol/L 136-145 N POTASSIUM (test code = K) 3.5 mmol/L 3.5-5.1 N CHLORIDE (test code = CL) 102.0 mmol/L 98-107 N CARBON DIOXIDE (test code = CO2) 28.0 mmol/L 21-32 N ANION GAP (test code = GAP) 11.5 10-20 N GLUCOSE (test code = GLU) 105 mg/dL 74-106 N BLOOD UREA NITROGEN (test code = BUN) 20 mg/dL 7-18 H RESULT VERIFIED BY REPEAT ANALYSIS GLOMERULAR FILTRATION RATE (test code = GFR) > 60 mL/min >=60 Estimated GFR by using Modified MDRD formula.Chronic kidney disease is defined as either kidney damageor GFR <60 mL/min/1.73 m2 for >3 months. CREATININE (test code = CREAT) 1.00 mg/dL 0.7-1.3 N BUN/CREATININE RATIO (test code = BUN/CREA) 20.0 10-20 N TOTAL PROTEIN (test code = PROT) 7.9 gram/dL 6.4-8.2 N ALBUMIN (test code = ALB) 3.6 g/dL 3.4-5.0 N GLOBULIN (test code = GLOB) 4.3 gram/dL 2.7-4.2 H ALBUMIN/GLOBULIN RATIO (test code = A/G) 0.8 0.75-1.50 N CALCIUM (test code = CA) 9.7 mg/dL 8.5-10.1 N BILIRUBIN TOTAL (test code = BILT) 0.80 mg/dL 0.0-1.0 N SGOT/AST (test code = AST) 20 IUnit/L 15-37 N SGPT/ALT (test code = ALT) 17 IUnit/L 12-78 N ALKALINE PHOSPHATASE TOTAL (test code = ALKP) 137 IUnit/L 45-117 H Note change in reference range due to change in reagent. COMPREHENSIVE METABOLIC [id number] 06:31:00* Test Item Value Reference Range Interpretation Comments SODIUM (test code = NA) 138 mmol/L 136-145 N POTASSIUM (test code = K) 3.5 mmol/L 3.5-5.1 N CHLORIDE (test code = CL) 102.0 mmol/L 98-107 N CARBON DIOXIDE (test code = CO2) mmol/L 21-32 ANION GAP (test code = GAP) 10-20 GLUCOSE (test code = GLU) mg/dL 74-106 BLOOD UREA NITROGEN (test code = BUN) mg/dL 7-18 GLOMERULAR FILTRATION RATE (test code = GFR) mL/min >=60 CREATININE (test code = CREAT) mg/dL 0.7-1.3 BUN/CREATININE RATIO (test code = BUN/CREA) 10-20 TOTAL PROTEIN (test code = PROT) gram/dL 6.4-8.2 ALBUMIN (test code = ALB) g/dL 3.4-5.0 GLOBULIN (test code = GLOB) gram/dL 2.7-4.2 ALBUMIN/GLOBULIN RATIO (test code = A/G) 0.75-1.50 CALCIUM (test code = CA) mg/dL 8.5-10.1 BILIRUBIN TOTAL (test code = BILT) mg/dL 0.0-1.0 SGOT/AST (test code = AST) IUnit/L 15-37 SGPT/ALT (test code = ALT) IUnit/L 12-78 ALKALINE PHOSPHATASE TOTAL (test code = ALKP) IUnit/L 45-117 CBC W/AUTO [id number] 05:58:00* Test Item Value Reference Range Interpretation Comments WHITE BLOOD CELL (test code = WBC) 10.6 K/mm3 4.5-12.5 N RED BLOOD CELL (test code = RBC) 5.17 mill/mm3 4.0-5.8 N HEMOGLOBIN (test code = HGB) 15.1 gram/dL 13.0-17.5 N HEMATOCRIT (test code = HCT) 45.0 % 42.0-52.0 N MEAN CELL VOLUME (test code = MCV) 87.0 fL 80-98 N MEAN CELL HGB (test code = MCH) 29.2 picogram 27.0-33.0 N MEAN CELL HGB CONCETRATION (test code = MCHC) 33.6 gram/dL 33.0-36. 0 N RED CELL DISTRIBUTION WIDTH (test code = RDW) 13.4 % 11.6-16. 2 N RED CELL DISTRIBUTION WIDTH SD (test code = RDW-SD) 42.3 fL 37 .0-51.0 N PLATELET COUNT (test code = PLT) 240 K/mm3 150-450 N MEAN PLATELET VOLUME (test code = MPV) 10.1 fL 6.7-11.0 N NEUTROPHIL % (test code = NT%) 66.0 % 39.0-69.0 N IMMATURE GRANULOCYTE % (test code = IG%) 0.4 % 0.0-5.0 N LYMPHOCYTE % (test code = LY%) 17.2 % 25.0-55.0 L MONOCYTE % (test code = MO%) 14.3 % 0.0-10.0 H EOSINOPHIL % (test code = EO%) 1.6 % 0.0-5.0 N BASOPHIL % (test code = BA%) 0.5 % 0.0-1.0 N NUCLEATED RBC % (test code = NRBC%) 0.0 % 0-0 N NEUTROPHIL # (test code = NT#) 7.02 K/mm3 1.8-7.7 N IMMATURE GRANULOCYTE # (test code = IG#) 0.04 x10 3/uL 0-0.03 H LYMPHOCYTE # (test code = LY#) 1.83 K/mm3 1.0-5.0 N MONOCYTE # (test code = MO#) 1.52 K/mm3 0-0.8 H EOSINOPHIL # (test code = EO#) 0.17 K/mm3 0.0-0.5 N BASOPHIL # (test code = BA#) 0.05 K/mm3 0.0-0.2 N NUCLEATED RBC # (test code = NRBC#) 0.00 K/mm3 0.0-0.1 N CBC W/AUTO [id number] 05:55:00* Test Item Value Reference Range Interpretation Comments WHITE BLOOD CELL (test code = WBC) K/mm3 4.5-12.5 RED BLOOD CELL (test code = RBC) mill/mm3 4.0-5.8 HEMOGLOBIN (test code = HGB) 15.1 gram/dL 13.0-17.5 N HEMATOCRIT (test code = HCT) 45.0 % 42.0-52.0 N MEAN CELL VOLUME (test code = MCV) fL 80-98 MEAN CELL HGB (test code = MCH) picogram 27.0-33.0 MEAN CELL HGB CONCETRATION (test code = MCHC) gram/dL 33.0-36. 0 RED CELL DISTRIBUTION WIDTH (test code = RDW) % 11.6-16. 2 RED CELL DISTRIBUTION WIDTH SD (test code = RDW-SD) fL 37 .0-51.0 PLATELET COUNT (test code = PLT) K/mm3 150-450 MEAN PLATELET VOLUME (test code = MPV) fL 6.7-11.0 NEUTROPHIL % (test code = NT%) % 39.0-69.0 IMMATURE GRANULOCYTE % (test code = IG%) % 0.0-5.0 LYMPHOCYTE % (test code = LY%) % 25.0-55.0 MONOCYTE % (test code = MO%) % 0.0-10.0 EOSINOPHIL % (test code = EO%) % 0.0-5.0 BASOPHIL % (test code = BA%) % 0.0-1.0 NEUTROPHIL # (test code = NT#) K/mm3 1.8-7.7 LYMPHOCYTE # (test code = LY#) K/mm3 1.0-5.0 MONOCYTE # (test code = MO#) K/mm3 0-0.8 EOSINOPHIL # (test code = EO#) K/mm3 0.0-0.5 BASOPHIL # (test code = BA#) K/mm3 0.0-0.[id number] 21:49:00* Test Item Value Reference Range Interpretation Comments FLUID WBC AUTO (test code = WBCFLA) 823 cells/uL FLUID RBC AUTO (test code = RBCFLA) 1000 cells/uL FLUID TOTAL CELLS (test code = TCFL) 860 cells/uL >0 Fluid WBC RBC PMN% MN%Type cells/uL cells/uL CSF (0-5) n/a (2+/-4) (90+/-20)Peritoneal n/a n/a n/a n/aPleural n/a n/a n/a n/aSynovial <200 n/a <25% <75% CSF (0-30) n/a (4+/-4) (90+/-20) PLEURAL FLD COLOR (test code = COLPL) YELLOW PLEURAL FLD APPEARANCE (test code = APPPL) CLEAR PLEURAL FLD POLY (test code = POLYPL) 1.0 % PLEURAL FLD LYMPHOCYTE (test code = LYMPHPL) 79.0 % PLEURAL FLD MACROPHAGE (test code = MACPL) 20.0 % TOTAL CELLS COUNTED ON DIFF (test code = TOTCELLFL) 100 cells REVIEWED BY (test code = REVIEW) PATHOLOGIST PLEURAL FLD [id number] 21:49:00* Test Item Value Reference Range Interpretation Comments PLEURAL FLD PH (test code = PHPL) 7.5 PLEURAL FLD [id number] 21:49:00* Test Item Value Reference Range Interpretation Comments PLEURAL FLD GLUCOSE (test code = GLUPL) 107 MG/DL PLEURAL FLD TOTAL [id number] 21:49:00* Test Item Value Reference Range Interpretation Comments PLEURAL FLD TOTAL PROTEIN (test code = PROTPL) 5.6 gram/dL PLEURAL FLD [id number] 21:49:00* Test Item Value Reference Range Interpretation Comments PLEURAL FLD ALBUMIN (test code = ALBPL) 2.9 gram/dL PLEURAL FLD [id number] 21:49:00* Test Item Value Reference Range Interpretation Comments PLEURAL FLD LDH (test code = LDHPL) 249 IUnit/L PLEURAL FLD [id number] 21:49:00* Test Item Value Reference Range Interpretation Comments PLEURAL FLD AMYLASE (test code = AMYPL) 3773 Unit/L 25-125 H PLEURAL FLD [id number] 21:49:00* Test Item Value Reference Range Interpretation Comments PLEURAL FLD CHOLESTEROL (test code = CHOLPL) 60 MG/DL PLEURAL FLD CELL [id number] 20:33:00* Test Item Value Reference Range Interpretation Comments FLUID WBC AUTO (test code = WBCFLA) 823 cells/uL FLUID RBC AUTO (test code = RBCFLA) 1000 cells/uL FLUID TOTAL CELLS (test code = TCFL) 860 cells/uL >0 Fluid WBC RBC PMN% MN%Type cells/uL cells/uL CSF (0-5) n/a (2+/-4) (90+/-20)Peritoneal n/a n/a n/a n/aPleural n/a n/a n/a n/aSynovial <200 n/a <25% <75% CSF (0-30) n/a (4+/-4) (90+/-20) PLEURAL FLD COLOR (test code = COLPL) YELLOW PLEURAL FLD APPEARANCE (test code = APPPL) CLEAR PLEURAL FLD POLY (test code = POLYPL) 1.0 % PLEURAL FLD LYMPHOCYTE (test code = LYMPHPL) 79.0 % PLEURAL FLD MACROPHAGE (test code = MACPL) 20.0 % TOTAL CELLS COUNTED ON DIFF (test code = TOTCELLFL) 100 cells REVIEWED BY (test code = REVIEW) PATHOLOGIST PLEURAL FLD [id number] 20:33:00* Test Item Value Reference Range Interpretation Comments PLEURAL FLD PH (test code = PHPL) 7.5 PLEURAL FLD [id number] 20:33:00* Test Item Value Reference Range Interpretation Comments PLEURAL FLD GLUCOSE (test code = GLUPL) 107 MG/DL PLEURAL FLD TOTAL [id number] 20:33:00* Test Item Value Reference Range Interpretation Comments PLEURAL FLD TOTAL PROTEIN (test code = PROTPL) 5.6 gram/dL PLEURAL FLD [id number] 20:33:00* Test Item Value Reference Range Interpretation Comments PLEURAL FLD ALBUMIN (test code = ALBPL) gram/dL PLEURAL FLD [id number] 20:33:00* Test Item Value Reference Range Interpretation Comments PLEURAL FLD LDH (test code = LDHPL) 249 IUnit/L PLEURAL FLD [id number] 20:33:00* Test Item Value Reference Range Interpretation Comments PLEURAL FLD AMYLASE (test code = AMYPL) 3773 Unit/L 25-125 H PLEURAL FLD [id number] 20:33:00* Test Item Value Reference Range Interpretation Comments PLEURAL FLD CHOLESTEROL (test code = CHOLPL) 60 MG/DL [id number] 20:27:00* Test Item Value Reference Range Interpretation Comments GLUBED (test code = GLUBED) 152 mg/dL 74-106 H Performed by certified rewind operator at [facility] PLEURAL FLD CELL [id number] 19:42:00* Test Item Value Reference Range Interpretation Comments FLUID WBC AUTO (test code = WBCFLA) 823 cells/uL FLUID RBC AUTO (test code = RBCFLA) 1000 cells/uL FLUID TOTAL CELLS (test code = TCFL) 860 cells/uL >0 Fluid WBC RBC PMN% MN%Type cells/uL cells/uL CSF (0-5) n/a (2+/-4) (90+/-20)Peritoneal n/a n/a n/a n/aPleural n/a n/a n/a n/aSynovial <200 n/a <25% <75% CSF (0-30) n/a (4+/-4) (90+/-20) PLEURAL FLD COLOR (test code = COLPL) YELLOW PLEURAL FLD APPEARANCE (test code = APPPL) CLEAR TOTAL CELLS COUNTED ON DIFF (test code = TOTCELLFL) cells REVIEWED BY (test code = REVIEW) PATHOLOGIST PLEURAL FLD [id number] 19:42:00* Test Item Value Reference Range Interpretation Comments PLEURAL FLD PH (test code = PHPL) 7.5 PLEURAL FLD [id number] 19:42:00* Test Item Value Reference Range Interpretation Comments PLEURAL FLD GLUCOSE (test code = GLUPL) 107 MG/DL PLEURAL FLD TOTAL [id number] 19:42:00* Test Item Value Reference Range Interpretation Comments PLEURAL FLD TOTAL PROTEIN (test code = PROTPL) 5.6 gram/dL PLEURAL FLD [id number] 19:42:00* Test Item Value Reference Range Interpretation Comments PLEURAL FLD ALBUMIN (test code = ALBPL) gram/dL PLEURAL FLD [id number] 19:42:00* Test Item Value Reference Range Interpretation Comments PLEURAL FLD LDH (test code = LDHPL) 249 IUnit/L PLEURAL FLD [id number] 19:42:00* Test Item Value Reference Range Interpretation Comments PLEURAL FLD AMYLASE (test code = AMYPL) 3773 Unit/L 25-125 H PLEURAL FLD [id number] 19:42:00* Test Item Value Reference Range Interpretation Comments PLEURAL FLD CHOLESTEROL (test code = CHOLPL) 60 MG/DL PLEURAL FLD CELL [id number] 17:59:00* Test Item Value Reference Range Interpretation Comments FLUID WBC AUTO (test code = WBCFLA) 823 cells/uL FLUID RBC AUTO (test code = RBCFLA) 1000 cells/uL FLUID TOTAL CELLS (test code = TCFL) 860 cells/uL >0 Fluid WBC RBC PMN% MN%Type cells/uL cells/uL CSF (0-5) n/a (2+/-4) (90+/-20)Peritoneal n/a n/a n/a n/aPleural n/a n/a n/a n/aSynovial <200 n/a <25% <75% CSF (0-30) n/a (4+/-4) (90+/-20) PLEURAL FLD COLOR (test code = COLPL) YELLOW PLEURAL FLD APPEARANCE (test code = APPPL) CLEAR TOTAL CELLS COUNTED ON DIFF (test code = TOTCELLFL) cells REVIEWED BY (test code = REVIEW) PATHOLOGIST PLEURAL FLD [id number] 17:59:00* Test Item Value Reference Range Interpretation Comments PLEURAL FLD PH (test code = PHPL) PLEURAL FLD [id number] 17:59:00* Test Item Value Reference Range Interpretation Comments PLEURAL FLD GLUCOSE (test code = GLUPL) 107 MG/DL PLEURAL FLD TOTAL [id number] 17:59:00* Test Item Value Reference Range Interpretation Comments PLEURAL FLD TOTAL PROTEIN (test code = PROTPL) 5.6 gram/dL PLEURAL FLD [id number] 17:59:00* Test Item Value Reference Range Interpretation Comments PLEURAL FLD ALBUMIN (test code = ALBPL) gram/dL PLEURAL FLD [id number] 17:59:00* Test Item Value Reference Range Interpretation Comments PLEURAL FLD LDH (test code = LDHPL) 249 IUnit/L PLEURAL FLD [id number] 17:59:00* Test Item Value Reference Range Interpretation Comments PLEURAL FLD AMYLASE (test code = AMYPL) 3773 Unit/L 25-125 H PLEURAL FLD [id number] 17:59:00* Test Item Value Reference Range Interpretation Comments PLEURAL FLD CHOLESTEROL (test code = CHOLPL) 60 MG/DL PLEURAL FLD CELL [id number] 17:28:00* Test Item Value Reference Range Interpretation Comments FLUID WBC AUTO (test code = WBCFLA) 823 cells/uL FLUID RBC AUTO (test code = RBCFLA) 1000 cells/uL FLUID TOTAL CELLS (test code = TCFL) 860 cells/uL >0 Fluid WBC RBC PMN% MN%Type cells/uL cells/uL CSF (0-5) n/a (2+/-4) (90+/-20)Peritoneal n/a n/a n/a n/aPleural n/a n/a n/a n/aSynovial <200 n/a <25% <75% CSF (0-30) n/a (4+/-4) (90+/-20) PLEURAL FLD COLOR (test code = COLPL) YELLOW PLEURAL FLD APPEARANCE (test code = APPPL) CLEAR TOTAL CELLS COUNTED ON DIFF (test code = TOTCELLFL) cells REVIEWED BY (test code = REVIEW) PATHOLOGIST PLEURAL FLD [id number] 17:28:00* Test Item Value Reference Range Interpretation Comments PLEURAL FLD PH (test code = PHPL) PLEURAL FLD [id number] 17:28:00* Test Item Value Reference Range Interpretation Comments PLEURAL FLD GLUCOSE (test code = GLUPL) 107 MG/DL PLEURAL FLD TOTAL [id number] 17:28:00* Test Item Value Reference Range Interpretation Comments PLEURAL FLD TOTAL PROTEIN (test code = PROTPL) 5.6 gram/dL PLEURAL FLD [id number] 17:28:00* Test Item Value Reference Range Interpretation Comments PLEURAL FLD ALBUMIN (test code = ALBPL) gram/dL PLEURAL FLD [id number] 17:28:00* Test Item Value Reference Range Interpretation Comments PLEURAL FLD LDH (test code = LDHPL) 249 IUnit/L PLEURAL FLD [id number] 17:28:00* Test Item Value Reference Range Interpretation Comments PLEURAL FLD AMYLASE (test code = AMYPL) Unit/L 25-125 PLEURAL FLD [id number] 17:28:00* Test Item Value Reference Range Interpretation Comments PLEURAL FLD CHOLESTEROL (test code = CHOLPL) 60 MG/DL PLEURAL FLD CELL [id number] 17:25:00* Test Item Value Reference Range Interpretation Comments FLUID WBC AUTO (test code = WBCFLA) 823 cells/uL FLUID RBC AUTO (test code = RBCFLA) 1000 cells/uL FLUID TOTAL CELLS (test code = TCFL) 860 cells/uL >0 Fluid WBC RBC PMN% MN%Type cells/uL cells/uL CSF (0-5) n/a (2+/-4) (90+/-20)Peritoneal n/a n/a n/a n/aPleural n/a n/a n/a n/aSynovial <200 n/a <25% <75% CSF (0-30) n/a (4+/-4) (90+/-20) PLEURAL FLD COLOR (test code = COLPL) YELLOW PLEURAL FLD APPEARANCE (test code = APPPL) CLEAR TOTAL CELLS COUNTED ON DIFF (test code = TOTCELLFL) cells REVIEWED BY (test code = REVIEW) PATHOLOGIST PLEURAL FLD [id number] 17:25:00* Test Item Value Reference Range Interpretation Comments PLEURAL FLD PH (test code = PHPL) PLEURAL FLD [id number] 17:25:00* Test Item Value Reference Range Interpretation Comments PLEURAL FLD GLUCOSE (test code = GLUPL) MG/DL PLEURAL FLD TOTAL [id number] 17:25:00* Test Item Value Reference Range Interpretation Comments PLEURAL FLD TOTAL PROTEIN (test code = PROTPL) gram/dL PLEURAL FLD [id number] 17:25:00* Test Item Value Reference Range Interpretation Comments PLEURAL FLD ALBUMIN (test code = ALBPL) gram/dL PLEURAL FLD [id number] 17:25:00* Test Item Value Reference Range Interpretation Comments PLEURAL FLD LDH (test code = LDHPL) IUnit/L PLEURAL FLD [id number] 17:25:00* Test Item Value Reference Range Interpretation Comments PLEURAL FLD AMYLASE (test code = AMYPL) Unit/L 25-125 PLEURAL FLD [id number] 17:25:00* Test Item Value Reference Range Interpretation Comments PLEURAL FLD CHOLESTEROL (test code = CHOLPL) MG/DL PLEURAL FLD CELL [id number] 17:24:00* Test Item Value Reference Range Interpretation Comments FLUID WBC AUTO (test code = WBCFLA) 823 cells/uL FLUID RBC AUTO (test code = RBCFLA) 1000 cells/uL FLUID TOTAL CELLS (test code = TCFL) 860 cells/uL >0 Fluid WBC RBC PMN% MN%Type cells/uL cells/uL CSF (0-5) n/a (2+/-4) (90+/-20)Peritoneal n/a n/a n/a n/aPleural n/a n/a n/a n/aSynovial <200 n/a <25% <75% CSF (0-30) n/a (4+/-4) (90+/-20) PLEURAL FLD COLOR (test code = COLPL) PLEURAL FLD APPEARANCE (test code = APPPL) PLEURAL FLD WBC (test code = WBCPL) per uL 0-1000 PLEURAL FLD RBC (test code = RBCPL) per uL 0-50 TOTAL CELLS COUNTED ON DIFF (test code = TOTCELLFL) cells REVIEWED BY (test code = REVIEW) PATHOLOGIST PLEURAL FLD [id number] 17:24:00* Test Item Value Reference Range Interpretation Comments PLEURAL FLD PH (test code = PHPL) PLEURAL FLD [id number] 17:24:00* Test Item Value Reference Range Interpretation Comments PLEURAL FLD GLUCOSE (test code = GLUPL) MG/DL PLEURAL FLD TOTAL [id number] 17:24:00* Test Item Value Reference Range Interpretation Comments PLEURAL FLD TOTAL PROTEIN (test code = PROTPL) gram/dL PLEURAL FLD [id number] 17:24:00* Test Item Value Reference Range Interpretation Comments PLEURAL FLD ALBUMIN (test code = ALBPL) gram/dL PLEURAL FLD [id number] 17:24:00* Test Item Value Reference Range Interpretation Comments PLEURAL FLD LDH (test code = LDHPL) IUnit/L PLEURAL FLD [id number] 17:24:00* Test Item Value Reference Range Interpretation Comments PLEURAL FLD AMYLASE (test code = AMYPL) Unit/L 25-125 PLEURAL FLD [id number] 17:24:00* Test Item Value Reference Range Interpretation Comments PLEURAL FLD CHOLESTEROL (test code = CHOLPL) MG/DL [id number] 16:48:00* Test Item Value Reference Range Interpretation Comments GLUBED (test code = GLUBED) 105 mg/dL 74-106 N Performed by certified rewind operator at [facility] - XR CHEST 1 [id number] 15:37:00 FAX: Yasemin Espinal MD [phone] [place]: St: ADM FAX: Tra Anthony [phone] Name: GUILHERME JANSEN [facility] : 1935 Age/S: 84/M [address] Unit #: [id number] Loc: [id number].4032 [place] [address] Phys: Britton Mata MD Acct: [id number] Dis Date: Status: ADM IN PHONE #: [phone] Exam Date: 08/15/2019 1525 FAX #: [phone] Reason: S/P THORACENTESIS EXAMS: CPT CODE: [id number] XR CHEST 1 V 34064 REASON FOR EXAM: S/P THORACENTESIS EXAM ORDER DATE: 08/15/2019 3:14 PM Ordering: Britton Mata MD Attending:Yasemin Espinal MD Location:[facility] PROCEDURE: - XR CHEST 1 V COMPARISON: 08/14/2019 FINDINGS: Portable AP frontal view of the chest obtained at 3:22 PM shows moderate dense consolidation versus mass in the right midlung field. 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 Pulmonary vasculatures are unremarkable. IMPRESSION: Resolution of the right pleural effusion status post thoracentesis. No evidence of pneumothorax at 1537 Reported and signed by: Yonathan Reich M.D. CC: Yasemin Espinal MD; Tra Moran MD Technologist: RT TARA(R) Trnscrd Date/Time/By: 08/15/2019 (2377) : By: CarinVTL Orig Print D/T: S: 08/15/2019 (0245) PAGE 1 Signed Report AG [id number] 11:36:00* Test Item Value Reference Range Interpretation Comments AG CARCINOEMBRYONIC (test code = CEA) 107.4 ng/mL 0.0-3.0 H "HEALTHY" SMOKERS CAN HAVE CEA VALUES UP TO 5 NG/ML. BENIGNDISORDERS SELDOM ELEVATE THE SERUM CEA LEVEL ABOVE 10 NG/ML. COMPREHENSIVE METABOLIC [id number] 10:08:00* Test Item Value Reference Range Interpretation Comments SODIUM (test code = NA) 138 mmol/L 136-145 N POTASSIUM (test code = K) 3.7 mmol/L 3.5-5.1 N CHLORIDE (test code = CL) 105.0 mmol/L 98-107 N CARBON DIOXIDE (test code = CO2) 26.0 mmol/L 21-32 N ANION GAP (test code = GAP) 10.7 10-20 N GLUCOSE (test code = GLU) 103 mg/dL 74-106 N BLOOD UREA NITROGEN (test code = BUN) 10 mg/dL 7-18 N GLOMERULAR FILTRATION RATE (test code = GFR) > 60 mL/min >=60 Estimated GFR by using Modified MDRD formula.Chronic kidney disease is defined as either kidney damageor GFR <60 mL/min/1.73 m2 for >3 months. CREATININE (test code = CREAT) 0.80 mg/dL 0.7-1.3 N BUN/CREATININE RATIO (test code = BUN/CREA) 12.5 10-20 N TOTAL PROTEIN (test code = PROT) 8.0 gram/dL 6.4-8.2 N ALBUMIN (test code = ALB) 3.5 g/dL 3.4-5.0 N GLOBULIN (test code = GLOB) 4.5 gram/dL 2.7-4.2 H ALBUMIN/GLOBULIN RATIO (test code = A/G) 0.8 0.75-1.50 N CALCIUM (test code = CA) 9.6 mg/dL 8.5-10.1 N BILIRUBIN TOTAL (test code = BILT) 0.80 mg/dL 0.0-1.0 N SGOT/AST (test code = AST) 25 IUnit/L 15-37 N SGPT/ALT (test code = ALT) 20 IUnit/L 12-78 N ALKALINE PHOSPHATASE TOTAL (test code = ALKP) 140 IUnit/L 45-117 H Note change in reference range due to change in reagent. LACTIC DEHYDROGENASE(LDH)2019-08-15 10:08:00* Test Item Value Reference Range Interpretation Comments LACTIC DEHYDROGENASE(LDH) (test code = LDH) 263 IUnit/L 84-246 H COMPREHENSIVE METABOLIC [id number] 10:02:00* Test Item Value Reference Range Interpretation Comments SODIUM (test code = NA) 138 mmol/L 136-145 N POTASSIUM (test code = K) 3.7 mmol/L 3.5-5.1 N CHLORIDE (test code = CL) 105.0 mmol/L 98-107 N CARBON DIOXIDE (test code = CO2) mmol/L 21-32 ANION GAP (test code = GAP) 10-20 GLUCOSE (test code = GLU) mg/dL 74-106 BLOOD UREA NITROGEN (test code = BUN) mg/dL 7-18 GLOMERULAR FILTRATION RATE (test code = GFR) mL/min >=60 CREATININE (test code = CREAT) mg/dL 0.7-1.3 BUN/CREATININE RATIO (test code = BUN/CREA) 10-20 TOTAL PROTEIN (test code = PROT) gram/dL 6.4-8.2 ALBUMIN (test code = ALB) g/dL 3.4-5.0 GLOBULIN (test code = GLOB) gram/dL 2.7-4.2 ALBUMIN/GLOBULIN RATIO (test code = A/G) 0.75-1.50 CALCIUM (test code = CA) 9.6 mg/dL 8.5-10.1 N BILIRUBIN TOTAL (test code = BILT) mg/dL 0.0-1.0 SGOT/AST (test code = AST) IUnit/L 15-37 SGPT/ALT (test code = ALT) IUnit/L 12-78 ALKALINE PHOSPHATASE TOTAL (test code = ALKP) IUnit/L 45-117 LACTIC DEHYDROGENASE(LDH)2019-08-15 10:02:00* Test Item Value Reference Range Interpretation Comments LACTIC DEHYDROGENASE(LDH) (test code = LDH) IUnit/L 84-246 PROTHROMBIN [id number] 09:36:00* Test Item Value Reference Range Interpretation Comments PROTHROMBIN TIME PATIENT (test code = PTP) 13.5 seconds 9.0-14.0 N INTERNATIONAL NORMAL RATIO (test code = INR) 1.2 0.8-1.2 N The therapeutic range for oral anticoagulant therapy formost indications is an international normalized ratio (INR)of between 2.0 and 3.0. The recommended therapeutic INRrange for various clinical situations is listed below: Clinical Situation INR range Pulmonary e mbolism treatment (2.0-3.0)Venous thrombosis treatmentVenous thrombosis prophylaxis (high risk surgery)Prevention of systemic embolism from: Acute myocardial infarction Valvular heart disease Atrial fibrillation Mechanical prosthetic heart valves (2.5-3.5) IS PATIENT ON ANTICOAGULANTS? NCOMPREHENSIVE METABOLIC [id number] 06:23:00 * Test Item Value Reference Range Interpretation Comments SODIUM (test code = NA) 141 mmol/L 136-145 N POTASSIUM (test code = K) 3.8 mmol/L 3.5-5.1 N CHLORIDE (test code = CL) 106.0 mmol/L 98-107 N CARBON DIOXIDE (test code = CO2) 27.0 mmol/L 21-32 N ANION GAP (test code = GAP) 11.8 10-20 N GLUCOSE (test code = GLU) 89 mg/dL 74-106 N BLOOD UREA NITROGEN (test code = BUN) 10 mg/dL 7-18 N GLOMERULAR FILTRATION RATE (test code = GFR) > 60 mL/min >=60 Estimated GFR by using Modified MDRD formula.Chronic kidney disease is defined as either kidney damageor GFR <60 mL/min/1.73 m2 for >3 months. CREATININE (test code = CREAT) 0.90 mg/dL 0.7-1.3 N BUN/CREATININE RATIO (test code = BUN/CREA) 11.1 10-20 N TOTAL PROTEIN (test code = PROT) 7.5 gram/dL 6.4-8.2 N ALBUMIN (test code = ALB) 3.5 g/dL 3.4-5.0 N GLOBULIN (test code = GLOB) 4.0 gram/dL 2.7-4.2 N ALBUMIN/GLOBULIN RATIO (test code = A/G) 0.9 0.75-1.50 N CALCIUM (test code = CA) 9.3 mg/dL 8.5-10.1 N BILIRUBIN TOTAL (test code = BILT) 0.60 mg/dL 0.0-1.0 N SGOT/AST (test code = AST) 25 IUnit/L 15-37 N SGPT/ALT (test code = ALT) 19 IUnit/L 12-78 N ALKALINE PHOSPHATASE TOTAL (test code = ALKP) 136 IUnit/L 45-117 H Note change in reference range due to change in reagent. COMPREHENSIVE METABOLIC [id number] 06:16:00* Test Item Value Reference Range Interpretation Comments SODIUM (test code = NA) 141 mmol/L 136-145 N POTASSIUM (test code = K) 3.8 mmol/L 3.5-5.1 N CHLORIDE (test code = CL) 106.0 mmol/L 98-107 N CARBON DIOXIDE (test code = CO2) mmol/L 21-32 ANION GAP (test code = GAP) 10-20 GLUCOSE (test code = GLU) mg/dL 74-106 BLOOD UREA NITROGEN (test code = BUN) mg/dL 7-18 GLOMERULAR FILTRATION RATE (test code = GFR) mL/min >=60 CREATININE (test code = CREAT) mg/dL 0.7-1.3 BUN/CREATININE RATIO (test code = BUN/CREA) 10-20 TOTAL PROTEIN (test code = PROT) gram/dL 6.4-8.2 ALBUMIN (test code = ALB) g/dL 3.4-5.0 GLOBULIN (test code = GLOB) gram/dL 2.7-4.2 ALBUMIN/GLOBULIN RATIO (test code = A/G) 0.75-1.50 CALCIUM (test code = CA) mg/dL 8.5-10.1 BILIRUBIN TOTAL (test code = BILT) mg/dL 0.0-1.0 SGOT/AST (test code = AST) IUnit/L 15-37 SGPT/ALT (test code = ALT) IUnit/L 12-78 ALKALINE PHOSPHATASE TOTAL (test code = ALKP) IUnit/L 45-117 [id number] 06:03:00* Test Item Value Reference Range Interpretation Comments TROPONIN-I (test code = TROPI) <0.015 ng/mL 0-0.045 N COMMENTS TO PROCESS LINE OPERATOR: COLLECT 3 HOURS AFTER PREVIOUS SAMPLECBC W/AUTO [id number] 05:38:00* Test Item Value Reference Range Interpretation Comments WHITE BLOOD CELL (test code = WBC) 7.5 K/mm3 4.5-12.5 N RED BLOOD CELL (test code = RBC) 4.82 mill/mm3 4.0-5.8 N HEMOGLOBIN (test code = HGB) 14.0 gram/dL 13.0-17.5 N HEMATOCRIT (test code = HCT) 42.7 % 42.0-52.0 N MEAN CELL VOLUME (test code = MCV) 88.6 fL 80-98 N MEAN CELL HGB (test code = MCH) 29.0 picogram 27.0-33.0 N MEAN CELL HGB CONCETRATION (test code = MCHC) 32.8 gram/dL 33.0-36. 0 L RED CELL DISTRIBUTION WIDTH (test code = RDW) 13.4 % 11.6-16. 2 N RED CELL DISTRIBUTION WIDTH SD (test code = RDW-SD) 43.5 fL 37 .0-51.0 N PLATELET COUNT (test code = PLT) 198 K/mm3 150-450 N MEAN PLATELET VOLUME (test code = MPV) 9.4 fL 6.7-11.0 N NEUTROPHIL % (test code = NT%) 64.4 % 39.0-69.0 N IMMATURE GRANULOCYTE % (test code = IG%) 0.3 % 0.0-5.0 N LYMPHOCYTE % (test code = LY%) 19.7 % 25.0-55.0 L MONOCYTE % (test code = MO%) 10.7 % 0.0-10.0 H EOSINOPHIL % (test code = EO%) 3.8 % 0.0-5.0 N BASOPHIL % (test code = BA%) 1.1 % 0.0-1.0 H NUCLEATED RBC % (test code = NRBC%) 0.0 % 0-0 N NEUTROPHIL # (test code = NT#) 4.80 K/mm3 1.8-7.7 N IMMATURE GRANULOCYTE # (test code = IG#) 0.02 x10 3/uL 0-0.03 N LYMPHOCYTE # (test code = LY#) 1.47 K/mm3 1.0-5.0 N MONOCYTE # (test code = MO#) 0.80 K/mm3 0-0.8 N EOSINOPHIL # (test code = EO#) 0.28 K/mm3 0.0-0.5 N BASOPHIL # (test code = BA#) 0.08 K/mm3 0.0-0.2 N NUCLEATED RBC # (test code = NRBC#) 0.00 K/mm3 0.0-0.1 N CBC W/AUTO [id number] 05:34:00* Test Item Value Reference Range Interpretation Comments WHITE BLOOD CELL (test code = WBC) K/mm3 4.5-12.5 RED BLOOD CELL (test code = RBC) mill/mm3 4.0-5.8 HEMOGLOBIN (test code = HGB) 14.0 gram/dL 13.0-17.5 N HEMATOCRIT (test code = HCT) 42.7 % 42.0-52.0 N MEAN CELL VOLUME (test code = MCV) fL 80-98 MEAN CELL HGB (test code = MCH) picogram 27.0-33.0 MEAN CELL HGB CONCETRATION (test code = MCHC) gram/dL 33.0-36. 0 RED CELL DISTRIBUTION WIDTH (test code = RDW) % 11.6-16. 2 RED CELL DISTRIBUTION WIDTH SD (test code = RDW-SD) fL 37 .0-51.0 PLATELET COUNT (test code = PLT) K/mm3 150-450 MEAN PLATELET VOLUME (test code = MPV) fL 6.7-11.0 NEUTROPHIL % (test code = NT%) % 39.0-69.0 IMMATURE GRANULOCYTE % (test code = IG%) % 0.0-5.0 LYMPHOCYTE % (test code = LY%) % 25.0-55.0 MONOCYTE % (test code = MO%) % 0.0-10.0 EOSINOPHIL % (test code = EO%) % 0.0-5.0 BASOPHIL % (test code = BA%) % 0.0-1.0 NEUTROPHIL # (test code = NT#) K/mm3 1.8-7.7 LYMPHOCYTE # (test code = LY#) K/mm3 1.0-5.0 MONOCYTE # (test code = MO#) K/mm3 0-0.8 EOSINOPHIL # (test code = EO#) K/mm3 0.0-0.5 BASOPHIL # (test code = BA#) K/mm3 0.0-0.2 [id number] 02:50:00* Test Item Value Reference Range Interpretation Comments TROPONIN-I (test code = TROPI) <0.015 ng/mL 0-0.045 N COMMENTS TO PROCESS LINE OPERATOR: COLLECT 3 HOURS AFTER PREVIOUS [id number] 20:43:00* Test Item Value Reference Range Interpretation Comments GLUBED (test code = GLUBED) 81 mg/dL 74-106 N Performed by certified rewind operator at [facility] - CTA [id number] 18:36:00 Name: GUILHERME JANSEN [facility] : 1935 Age/S: 84 / M [address] Unit #: [id number] Loc: [place] [address] Phys: Adolph Beckham MD Acct: [id number] Dis Date: Status: ADM IN PHONE #: [phone] Exam Date: 08/14/2019 1814 FAX #: [phone] Reason: sob +d-dimer EXAMS: CPT CODE: [id number] CTA CHEST [id number] REASON FOR EXAM: sob +d-dimer EXAM ORDER DATE: 08/14/2019 5:23 PM Ordering: Adolph Beckham MD Attending:Adolph Beckham MD Location:[facility] PROCEDURE: - CTA CHEST FINDINGS: CT images of the chest were obtained with IV contrast using PE protocol. Reconstructed sagittal and coronal images including 3D reconstructions of the chest were provided for interpretation. Dose reduction techniques were applied. Intravenous contrast: 100cc of Omnipaque 370. The heart size is within normal limits. No evidence of pericardial effusion The thoracic aorta is unremarkable. No evidence of dissection or aneurysmal dilatation. No filling defect seen within the main or lobar pulmonary arteries to suggest pulmonary embolus No evidence of mediastinal or hilar adenopathy IMPRESSION: Hyperinflated lungs consis tent with COPD with multiple small peripheral pulmonary blebs. Probable 4 cm lung mass in the right middle lobe. Large right pleural effusion. Nonspecific multiple subcentimeter pulmonary nodules in the left lung, too small to be characterized appropriately by CT but is suggestive of malignancy. 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 Electronically Signed by Concepcion Reich on 0 at 1835 Reported and signed by: Yonathan Reich M.D. CC: Tra Moran MD; Adolph Beckham MD Technologist:Catherine Pittman CTDI: DLP: Trnscb Date/Time: 08/14/2019 (1835 ) t.SDR.VTL Orig Print D/T: S: 08/14/2019 (1838) PAG E 1 Signed Report COMPREHENSIVE METABOLIC [id number] 17:26:00* Test Item Value Reference Range Interpretation Comments SODIUM (test code = NA) 140 mmol/L 136-145 N POTASSIUM (test code = K) 3.8 mmol/L 3.5-5.1 N CHLORIDE (test code = CL) 104 mmol/L 101-109 N CARBON DIOXIDE (test code = CO2) 27.5 mmol/L 21-32 N ANION GAP (test code = GAP) 12 mmol/L 10-20 N GLUCOSE (test code = GLU) 96 mg/dL 74-106 N BLOOD UREA NITROGEN (test code = BUN) 10 mg/dL 3-21 N CREATININE (test code = CREAT) 0.75 mg/dL 0.55-1.3 N BUN/CREATININE RATIO (test code = BUN/CREA) 13.3 10-20 N TOTAL PROTEIN (test code = PROT) 7.5 g/dL 6.5-8.4 N ALBUMIN (test code = ALB) 3.3 g/dL 3.4-4.8 L GLOBULIN (test code = GLOB) 4.2 G/DL 1-10 N ALBUMIN/GLOBULIN RATIO (test code = A/G) 0.79 RATIO 0.75-1.50 N CALCIUM (test code = CA) 9.1 mg/dL 8.4-10.2 N BILIRUBIN TOTAL (test code = BILT) 0.60 mg/dL 0.0-1.0 N SGOT/AST (test code = AST) 23 U/L 6-32 N SGPT/ALT (test code = ALT) 20 U/L 12-78 N N ote: Change in REFERENCE RANGE due to new reagent method. ALKALINE PHOSPHATASE TOTAL (test code = ALKP) 134 U/L 38-126 H [id number] 17:26:00* Test Item Value Reference Range Interpretation Comments LIPASE (test code = LIP) 127 U/L 128-270 L [id number] 17:26:00* Test Item Value Reference Range Interpretation Comments MAGNESIUM (test code = MAG) 1.6 mg/dL 1.6-2.3 N CPK-MB [id number] 17:26:00* Test Item Value Reference Range Interpretation Comments CREATINE KINASE (CK) (test code = CK) 54 U/L 39-308 N CKMB (test code = CKMBT) 1.9 ng/mL 0.0-5.0 N RELATIVE % INDEX (test code = REL%) 3.5 % [id number]-[id number] 17:26:00* Test Item Value Reference Range Interpretation Comments TROPONIN-I (test code = TROPI) <0.015 ng/mL 0.00-0.056 N - XR CHEST 1 [id number] 17:17:00 Name: INDERJITGUILHERME XAVIER [facility] : 1935 Age/S:84 /M [address] [facility] Unit#:[id number] Loc: [place] Gonzalez [address] Phys: Adolph Beckham MD Dis Date: PHONE #: [phone] Status: REG ER FAX #: [phone] Exam Date: 08/14/2019 Reason: SOB EXAMS: CPT CODE: [id number] XR CHEST 1 V [id number] REASON FOR EXAM: SOB EXAM ORDER DATE: 08/14/2019 4:37 PM Ordering: Adolph Beckham MD Attending:Adolph Beckham MD Location: PROCEDURE: - XR CHEST 1 V COMPARISON: FINDINGS: Portable AP frontal view of the chest obtained at 5:11 PM shows patchy airspace opacity of the right lung. The heart size is within normal limits. Pulm onary vasculatures are unremarkable. Left subclavian pacemaker noted IMPRESSION: Focal consolidation of the right mid lung field and righ t base with a mild right pleural effusion. Underlying mass cannot be rule out. at 2698 Reported and signed by: Yonathan Reich M.D. CC: Adolph Beckham MD Technologist : Catherine Pittman Trnscrpt Data: 08/14/19 (5424) t.TRICIAR.VTL Orig Print D/T: S: 08/14/2019 (5647 ) PAGE 1 Signed Report [id number] 17:09:00* Test Item Value Reference Range Interpretation Comments D-DIMER (test code = DDIMER) 1160 ng/ml < 600 HH Results called to DR BECKHAM by V.LAB.A 08/14/19 1709Critical results verified and read back by Nurse? Y B-TYPE NATRIURETIC [id number] 17:07:00* Test Item Value Reference Range Interpretation Comments B-TYPE NATRIURETIC PEPTIDE (test code = BNP) 37.8 pg/mL 0-100 N CBC W/AUTO [id number] 17:01:00* Test Item Value Reference Range Interpretation Comments WHITE BLOOD CELL (test code = WBC) 7.4 K/mm3 4.5-12.5 N RED BLOOD CELL (test code = RBC) 4.40 mill/mm3 4.0-5.8 N HEMOGLOBIN (test code = HGB) 13.2 gram/dL 13.0-17.5 N HEMATOCRIT (test code = HCT) 38.3 % 42.0-52.0 L MEAN CELL VOLUME (test code = MCV) 87.0 fL 80-98 N MEAN CELL HGB (test code = MCH) 30.0 picogram 27.0-33.0 N MEAN CELL HGB CONCETRATION (test code = MCHC) 34.5 gram/dL 33.0-36. 0 N RED CELL DISTRIBUTION WIDTH (test code = RDW) 13.0 % 11.6-16. 2 N RED CELL DISTRIBUTION WIDTH SD (test code = RDW-SD) 42.3 fL 37 .0-51.0 N PLATELET COUNT (test code = PLT) 177 K/mm3 150-450 N MEAN PLATELET VOLUME (test code = MPV) 9.5 fL 6.7-11.0 N NEUTROPHIL % (test code = NT%) 64.0 % 39.0-69.0 N LYMPHOCYTE % (test code = LY%) 23.2 % 25.0-55.0 L MONOCYTE % (test code = MO%) 9.6 % 0.0-10.0 N EOSINOPHIL % (test code = EO%) 2.7 % 0.0-5.0 N BASOPHIL % (test code = BA%) 0.4 % 0.0-1.0 N NEUTROPHIL # (test code = NT#) 4.70 K/mm3 1.8-7.7 N LYMPHOCYTE # (test code = LY#) 1.71 K/mm3 1.0-5.0 N MONOCYTE # (test code = MO#) 0.71 K/mm3 0-0.8 N EOSINOPHIL # (test code = EO#) 0.20 K/mm3 0.0-0.5 N BASOPHIL # (test code = BA#) 0.03 K/mm3 0.0-0.2 N MANUAL DIFF REQUIRED (test code = MDIFF) NO Bedside Jxyhhwq2026-91-32 11:48:00* Test Item Value Reference Range Interpretation Comments Bedside Glucose (test code = 23361-5) 109 70-120 Meter ID: [id number] [facility] 2019-07-11 07:24:00 [facility] [address] [place] [address] Patient Name: GUILHERME JANSEN MR #: [id number] : 1935 Age/Sex: 84/M Req #: [id number] Adm Physician: CODY GUIDO MD Ordered by: CODY GUIDO MD Report #: [id number] Location: [facility] Room/Bed: [facility] Procedure: [id number] DX/CHEST 2 VIEWS Exam Date: 07/11/19 Exam Time: 0645 REPORT STATUS: Signed EXAMINATI ON: CHEST 2 VIEWS INDICATION: Shortness of breath, flulike symptoms f/u [id number] COMPARISON: Chest x-ray 07/07/2019 FIND INGS: PA and lateral views TUBES and LINES: Dual-lead pacemaker wires ter minate in the right atrium and right ventricle. LUNGS/PLEURA: The lungs are better inflated. Diffuse hyperinflation suggestive of COPD/emphysema . Biapical pleural-parenchymal thickening is stable. Lateral right middle lobe airspace opacity is better visualized with a somewhat discoid appearance. The re is diffuse interstitial edema of the lungs, right more severe than the left , similar to previous exam. No infiltrates in the left lung. There is blunt ing of the right lateral costophrenic angle and thickening of the lateral pleu ra in the mid chest. HEART AND MEDIASTINUM: The cardiomediastinal silhouet te is unremarkable.. BONES AND SOFT TISSUES: The bones are diffusely dem ineralized. No focal osseous lesions. Soft tissues are unremarkable. UP PER ABDOMEN: Unremarkable. IMPRESSION: Right middle lobe airspace opaci ty may represent pneumonia or chronic atelectasis. Diffuse interstitial edema may be the result of a viral pneumonia or fibrosis. Lateral right midlung fiel d pleural thickening and right pleural effusion. COPD/emphysema. Whitney d by: Dr. Katya Mcrae MD on 07/11/2019 7:29 AM Dictated By: KATYA MCRAE MD 0729 T ranscribed By: JENNIFER on 07/11/19 0729 COPY TO: CODY GUIDO MD Blood [id number] 14:54:00* Test Item Value Reference Range Interpretation Comments Blood Culture (test code = 17528082) NO GROWTH AFTER 72 HOURS [facility] Buhea1594-84-43 06:53:00* Test Item Value Reference Range Interpretation Comments White Blood Count (test code = 6690-2) 7.95 4.8-10.8 [facility] Smdzj2532-43-65 06:53:00* Test Item Value Reference Range Interpretation Comments Red Blood Count (test code = 789-8) 4.34 4.3-5.7 [facility]Hemoglobin2020-02-01 06:53:00* Test Item Value Reference Range Interpretation Comments Hemoglobin (test code = 54568-9) 12.9 14.0-18.0 L [facility]Hematocrit2020-02-01 06:53:00* Test Item Value Reference Range Interpretation Comments Hematocrit (test code = 4544-3) 38.7 38.2-49.6 [facility] HospitalMean Corpuscular Sfvyoq6962-96-98 06:53:00* Test Item Value Reference Range Interpretation Comments Mean Corpuscular Volume (test code = 787-2) 89.2 81-99 [facility]Mean Corpuscular Nvxcncjqao7093-31-04 06:53:00* Test Item Value Reference Range Interpretation Comments Mean Corpuscular Hemoglobin (test code = 785-6) 29.7 28-32 [facility]Mean Corpuscular Hemoglobin Concent 2019-07-09 06:53:00* Test Item Value Reference Range Interpretation Comments Mean Corpuscular Hemoglobin Concent (test code = 786-4) 33.3 31-35 [facility]Red Cell Distribution Gwhur0222-75-17 06:53:00* Test Item Value Reference Range Interpretation Comments Red Cell Distribution Width (test code = 79752-5) 13.6 11.7 -14.4 [facility] HospitalPlatelet Orlor8091-63-76 06:53:00* Test Item Value Reference Range Interpretation Comments Platelet Count (test code = 777-3) 192 140-360 [facility] HospitalNeutrophils (%) (Auto)2019-07-09 06:53:00 * Test Item Value Reference Range Interpretation Comments Neutrophils (%) (Auto) (test code = 85712-2) 64.7 38.7-80.0 [facility] HospitalLymphocytes (%) (Auto)2019-07-09 06:53:00 * Test Item Value Reference Range Interpretation Comments Lymphocytes (%) (Auto) (test code = 736-9) 22.5 18.0-39.1 [facility] HospitalMonocytes (%) (Auto)2019-07-09 06:53:00* Test Item Value Reference Range Interpretation Comments Monocytes (%) (Auto) (test code = 5905-5) 9.6 4.4-11.3 [facility] HospitalEosinophils (%) (Auto)2019-07-09 06:53:00 * Test Item Value Reference Range Interpretation Comments Eosinophils (%) (Auto) (test code = 713-8) 2.0 0.0-6.0 [facility] HospitalBasophils (%) (Auto)2019-07-09 06:53:00* Test Item Value Reference Range Interpretation Comments Basophils (%) (Auto) (test code = 706-2) 0.9 0.0-1.0 [facility] HospitalIM GRANULOCYTES %2019-07-09 06:53:00* Test Item Value Reference Range Interpretation Comments IM GRANULOCYTES % (test code = IM GRANULOCYTES %) 0.3 0.0- 1.0 [facility] HospitalNeutrophils # (Auto)2019-07-09 06:53:00* Test Item Value Reference Range Interpretation Comments Neutrophils # (Auto) (test code = 751-8) 5.2 2.1-6.9 [facility] HospitalLymphocytes # (Auto)2019-07-09 06:53:00* Test Item Value Reference Range Interpretation Comments Lymphocytes # (Auto) (test code = 53593-2) 1.8 1.0-3.2 [facility] HospitalMonocytes # (Auto)2019-07-09 06:53:00* Test Item Value Reference Range Interpretation Comments Monocytes # (Auto) (test code = 742-7) 0.8 0.2-0.8 [facility] HospitalEosinophils # (Auto)2019-07-09 06:53:00* Test Item Value Reference Range Interpretation Comments Eosinophils # (Auto) (test code = 711-2) 0.2 0.0-0.4 [facility] HospitalBasophils # (Auto)2019-07-09 06:53:00* Test Item Value Reference Range Interpretation Comments Basophils # (Auto) (test code = 704-7) 0.1 0.0-0.1 [facility] HospitalAbsolute Immature Granulocyte (auto 2019-07-09 06:53:00* Test Item Value Reference Range Interpretation Comments Absolute Immature Granulocyte (auto (phillip t code = Absolute Immature Granulocyte (auto) 0.02 0-0.1 [facility] HospitalHemoglobin A1c Chzvubu4980-12-00 07:34:00 * Test Item Value Reference Range Interpretation Comments Hemoglobin A1c Percent (test code = Hemoglobin A1c Percent) 5.6 4.0-7.0 [facility] HospitalTriglycerides Fytpq0065-91-46 07:23:00* Test Item Value Reference Range Interpretation Comments Triglycerides Level (test code = 2571-8) 33 0-149 [facility] HospitalCholesterol Oqyzk4648-57-85 07:23:00* Test Item Value Reference Range Interpretation Comments Cholesterol Level (test code = 2093-3) 97 0-199 Less than 200 mg/dL Low Uewd303 - 239 mg/dL Borderline Cntn969 m g/dl and greater High Risk [facility] HospitalLDL Jvxhlceiiez2190-01-52 07:23:00* Test Item Value Reference Range Interpretation Comments LDL Cholesterol (test code = 2089-1) 55 60-130 L [facility] HospitalHDL Rzowrnrglne6669-76-76 07:23:00* Test Item Value Reference Range Interpretation Comments HDL Cholesterol (test code = 2085-9) 35 40-60 L [facility] HospitalCholesterol/HDL Xemlb2886-59-71 07:23:00 * Test Item Value Reference Range Interpretation Comments Cholesterol/HDL Ratio (test code = 9830-1) 2.8 3.9-4.7 L [facility] Hospitalodium Fzjwy7006-09-63 05:47:00* Test Item Value Reference Range Interpretation Comments Sodium Level (test code = 2951-2) 138 136-145 [facility] HospitalPotassium Dicaf5572-58-48 05:47:00* Test Item Value Reference Range Interpretation Comments Potassium Level (test code = 2823-3) 3.8 3.5-5.1 [facility] HospitalChloride Fldvu3858-96-47 05:47:00* Test Item Value Reference Range Interpretation Comments Chloride Level (test code = 2075-0) 107 98-107 [facility] HospitalCarbon Dioxide Mmyme5937-66-64 05:47:00* Test Item Value Reference Range Interpretation Comments Carbon Dioxide Level (test code = 2028-9) 21 22-29 L [facility] HospitalAnion Cwc4817-59-51 05:47:00* Test Item Value Reference Range Interpretation Comments Anion Gap (test code = 85849-3) 13.8 8-16 [facility] HospitalBlood Urea Mhpeqkrt2623-14-81 05:47:00* Test Item Value Reference Range Interpretation Comments Blood Urea Nitrogen (test code = 3094-0) 11 7-26 [facility] HospitalCreatinine2020-01-31 05:47:00* Test Item Value Reference Range Interpretation Comments Creatinine (test code = 2160-0) 0.72 0.72-1.25 [facility] HospitalBUN/Creatinine Fhezn6337-44-50 05:47:00* Test Item Value Reference Range Interpretation Comments BUN/Creatinine Ratio (test code = 3097-3) 15 6-25 [facility] HospitalEstimat Glomerular Filtration Rate 2019-07-08 05:47:00* Test Item Value Reference Range Interpretation Comments Estimat Glomerular Filtration Rate (test code = 305744320) > 60 >60 Ranges were taken from the National Kidney Disease Education Program and the [facility] Foundation literature.Reference ranges:60 or greater: Lgazhs65-20 ( for 3 consecutive months): Chronic kidney disease 15 or less: Kidney failureMayhill HospitalGlucose Wjwqn1776-83-31 05:47:00* Test Item Value Reference Range Interpretation Comments Glucose Level (test code = ZUK8912) 138 74-118 H [facility] HospitalCalcium Ixnta6556-72-75 05:47:00* Test Item Value Reference Range Interpretation Comments Calcium Level (test code = 68706-1) 9.4 8.4-10.2 [facility] HospitalUrine MCX6008-87-31 16:23:00* Test Item Value Reference Range Interpretation Comments Urine WBC (test code = 5821-4) NONE 0-5 [facility] HospitalUrine BOQ5242-52-77 16:23:00* Test Item Value Reference Range Interpretation Comments Urine RBC (test code = 45774-0) NONE 0-5 [facility] HospitalUrine Mbjpkoaz6425-47-80 16:23:00* Test Item Value Reference Range Interpretation Comments Urine Bacteria (test code = 00267-5) RARE NONE [facility] HospitalUrine Epithelial Btqqe3740-52-14 16:23:00 * Test Item Value Reference Range Interpretation Comments Urine Epithelial Cells (test code = 30271-5) RARE NONE [facility] HospitalCHEST SINGLE (PORTABLE)2019-07-07 16:19:00 [facility] [address] [address] Patient Name: GUILHERME JANSEN MR #: [id number] : 1935 Age/Sex: 84/M Req #: [id number] Adm Physician: Ordered by: GLENIS MERCADO THORACIC MEDICINE PHYSICIAN Report #: [id number] Location: ER Room/Bed: Procedure: 0130-0 048 DX/CHEST SINGLE (PORTABLE) Exam Date: 07/07/19 E xam Time: 1545 REPORT STATUS: Whitney d EXAMINATION: CHEST SINGLE (PORTABLE) INDICATION: Shortness of katherine ath COMPARISON: None FINDINGS: LINES/TUBES:Left chest pacer. LUNGS:The left lung is well inflated. The right lung is moderately inflate d. Mild biapical pleural parenchymal thickening/scarring. There is perihilar fullness and indistinctness of the pulmonary vasculature. Right basilar patchy opacity. PLEURA:Likely small right pleural effusion. No pneumothorax. MEDIASTINUM:The cardiomediastinal silhouette appears normal in size and shape. Atherosclerotic calcifications of the thoracic aorta. BONES/SOFT TISSUES :No acute osseous injury. ABDOMEN:No free air under the diaphragm. 1. IMPRESSION: Pulmonary interstitial edema. Likely small right pleural effu aisha. Right basilar patchy opacity, more likely subsegmental atelectasis th an superimposed aspiration or pneumonia. Signed by: Jaren Redmond MD on 06/10 4:21 PM Dictated By: JAREN REDMOND MD 20 Transcribed By: JENNIFER on 07/07/19 162 COPY TO: GLENIS MERCADO NP Urine Avsnc0497-61-98 16:10:00* Test Item Value Reference Range Interpretation Comments Urine Color (test code = 5778-6) YELLOW YELLOW [facility] HospitalUrine Dixetcc0306-65-58 16:10:00* Test Item Value Reference Range Interpretation Comments Urine Clarity (test code = 17788-3) CLEAR CLEAR [facility] HospitalUrine Specific Rhhhese3786-39-75 16:10:00 * Test Item Value Reference Range Interpretation Comments Urine Specific [place] (test code = 5811-5) 1.025 1.010-1.02 5 [facility] HospitalUrine fY1512-71-67 16:10:00* Test Item Value Reference Range Interpretation Comments Urine pH (test code = 67907-0) 6 5-7 [facility] HospitalUrine Leukocyte Znhupwaj9853-42-77 16:10:00* Test Item Value Reference Range Interpretation Comments Urine Leukocyte Esterase (test code = 5799-2) NEGATIVE NEGATIVE [facility] HospitalUrine Qufvsjw0705-78-02 16:10:00* Test Item Value Reference Range Interpretation Comments Urine Nitrite (test code = 56205-0) NEGATIVE NEGATIVE [facility] HospitalUrine Xtfgqph0308-23-94 16:10:00* Test Item Value Reference Range Interpretation Comments Urine Protein (test code = 5804-0) NEGATIVE NEGATIVE [facility] HospitalUrine Glucose (UA)2019-07-07 16:10:00* Test Item Value Reference Range Interpretation Comments Urine Glucose (UA) (test code = 2349-9) NEGATIVE NEGATIVE [facility] HospitalUrine Labvbqn6919-23-82 16:10:00* Test Item Value Reference Range Interpretation Comments Urine Ketones (test code = 35339-4) NEGATIVE NEGATIVE [facility] HospitalUrine Ztqlskctndra6712-44-37 16:10:00* Test Item Value Reference Range Interpretation Comments Urine Urobilinogen (test code = 73932-0) 0.2 0.2-1 [facility] HospitalUrine Gtqgfvloe6103-09-87 16:10:00* Test Item Value Reference Range Interpretation Comments Urine Bilirubin (test code = 1978-6) NEGATIVE NEGATIVE [facility] HospitalUrine Zuyak4698-24-66 16:10:00* Test Item Value Reference Range Interpretation Comments Urine Blood (test code = 60302-3) TRACE NEGATIVE H [facility] HospitalB-Type Natriuretic Xippifr6815-91-64 15:30:00* Test Item Value Reference Range Interpretation Comments B-Type Natriuretic Peptide (test code = 47269-8) 54.2 0-100 [facility] HospitalInfluenza Virus Types A,B Antigen 2019-07-07 15:23:00* Test Item Value Reference Range Interpretation Comments Influenza Virus Types A,B Antigen (test code = 58282-6) POSITIVE FLU B NEGATIVE H Results called to YUKI KVNG at 1522 on 07/07/19 by EMILIE MARRUFO. RB OK.Resul ts called to ALIA SANABRIA in infection control at 1522 on 07/07/19 by EMILIE SANTACRUZ.[facility] HospitalLactic Acid Mxntb1551-81-39 15:18:00* Test Item Value Reference Range Interpretation Comments Lactic Acid Level (test code = Lactic Acid Level) 1.6 0.5- 2.0 [facility] HospitalTotal Yjcynzxos1313-70-04 14:56:00* Test Item Value Reference Range Interpretation Comments Total Bilirubin (test code = 1975-2) 0.4 0.2-1.2 [facility] HospitalAspartate Amino Transf (AST/SGOT) 2019-07-07 14:56:00* Test Item Value Reference Range Interpretation Comments Aspartate Amino Transf (AST/SGOT) (test code = Aspartate Amino Transf (AST/SGOT)) 21 5-34 [facility] HospitalAlanine Aminotransferase (ALT/SGPT) 2019-07-07 14:56:00* Test Item Value Reference Range Interpretation Comments Alanine Aminotransferase (ALT/SGPT) (test code = 1742-6) 11 0-55 [facility] HospitalTotal Zlfkprm1823-61-52 14:56:00* Test Item Value Reference Range Interpretation Comments Total Protein (test code = 2885-2) 7.1 6.5-8.1 [facility] HospitalAlbumin2020-01-30 14:56:00* Test Item Value Reference Range Interpretation Comments Albumin (test code = 1751-7) 3.5 3.5-5.0 [facility] HospitalGlobulin2020-01-30 14:56:00* Test Item Value Reference Range Interpretation Comments Globulin (test code = 09908-0) 3.6 2.3-3.5 H [facility] HospitalAlbumin/Globulin Nyzgg0231-56-25 14:56:00 * Test Item Value Reference Range Interpretation Comments Albumin/Globulin Ratio (test code = 1759-0) 1.0 0.8-2.0 [facility] HospitalAlkaline Jhxauucupfw7970-95-17 14:56:00* Test Item Value Reference Range Interpretation Comments Alkaline Phosphatase (test code = 6768-6) 118 40-150 [facility] HospitalCreatine Mngsei9861-33-46 14:56:00* Test Item Value Reference Range Interpretation Comments Creatine Kinase (test code = 2157-6) 70 30-200 [facility] HospitalCreatine Kinase CN4737-07-08 14:56:00* Test Item Value Reference Range Interpretation Comments Creatine Kinase MB (test code = 89329-7) 2.50 0-5.0 [facility] HospitalTroponin P4039-52-55 14:56:00* Test Item Value Reference Range Interpretation Comments Troponin I (test code = PSP5426) 0.008 0-0.300 [facility] HospitalProthrombin Lyko8577-28-39 14:44:00* Test Item Value Reference Range Interpretation Comments Prothrombin Time (test code = 5902-2) 14.1 11.9-14.5 [facility] HospitalProthromb Time International Ratio 2019-07-07 14:44:00* Test Item Value Reference Range Interpretation Comments Prothromb Time International Ratio (test code = 6301-6) 1.04 Oral Anticoagulant Therapy INR Values:1. Low Intensity Therapy 1.5 - 2.02 . Moderate Intensity Therapy 2.0 - 3.03. High Intensity Therapy(1) 2.5 - 3. 54. High Intensity Therapy(2) 3.0 - 4.05. Panic Value INR > 5.0 [facility] HospitalActivated Partial Thromboplast Time 2019-07-07 14:44:00* Test Item Value Reference Range Interpretation Comments Activated Partial Thromboplast Time (test code = 75879-4) 34.7 23.8-35.5 [facility]
--- NOTE | 2020-03-10 16:45 | Emergency Department Note ---
History of Present Illnes History of Present Illness Chief Complaint: Extremity Trauma/Pain History of Present Illness This is a 84 year old male C/O OF PAIN TO RIGHT SHOULDER/NECK AREA. 2 WEEK AGO QUICKLY REACHED OUT WITH ARM TO GRAB ONTO THAT WAS FALLING OUT OF CHAIR AND BEGAN HAVING PAIN FROM THAT MOMENT. PATIENT UNABLE TO ABDUCT ARM. PER FAMILY, HE HAS BEEN SEEN IN DR. MO'S OFFICE TWICE DURING THE WEEK AND RECEIVED A "MUSCLE RELAXER SHOT". Historian: Patient Arrival Mode: Car Additional Treatment SUPERVISING BROKER: NONE Medical Transcription Supervisor Required: Yes (SON) Location: RIGHT SHOULDER Quality: PAIN Radiation: Reports non-radiation Severity: moderate Onset quality: sudden Timing of current episode: constant Progression: unchanged Chronicity: new Context: Denies recent illness Relieving factors: none Exacerbating factors: none Associated symptoms: Reports denies other symptoms; Denies chest pain, Denies syncope Past Medical/Family History Physician Review I have reviewed the patient's past medical and family history. Any updates have been documented here. 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 Social History Smoking Cessation: Former smoker Counseling Performed: No Alcohol Use: None Any Illegal Drug Use: No TB Exposure/Symptoms: No Physically hurt or threatened: No Family History Family history of heart diseas: No Other Last Tetanus: U Any Pre-Existing Lines (PICC,: No Review of Systems Review of Systems Constitutional: Reports no symptoms EENTM: Reports no symptoms Cardiovascular: Reports no symptoms Respiratory: Reports no symptoms Gastrointestinal: Reports no symptoms Genitourinary: Reports no symptoms Musculoskeletal: Reports as per HPI, Reports joint pain (RIGHT SHOULDER) Integumentary: Reports no symptoms Neurological: Reports no symptoms Psychological: Reports no symptoms Endocrine: Reports no symptoms Hematological/Lymphatic: Reports no symptoms Physical Exam Related Data Allergies: Coded Allergies: No Known Allergies (Unverified , 03/10/20) Triage Vital Signs Vital Signs Date Time Temp Pulse Resp B/P (MAP) Pulse Ox O2 Delivery O2 Flow Rate FiO2 03/10/20 16:25 98.1 93 18 127/72 97 Room Air Vital signs reviewed: Yes Physical Exam CONSTITUTIONAL Constitutional: Present cachectic; Absent distressed HENT HENT: Present normocephalic, Present atraumatic, Present oropharynx clear/moist, Present nose normal HENT L/R: Present left ext ear normal, Present right ext ear normal EYES Eyes: Reports PERRL, Reports conjunctivae normal NECK Neck: Present ROM normal PULMONARY Pulmonary: Present effort normal, Present breath sounds normal, Present other (DECR BS'S RIGHT BASE) CARDIOVASCULAR Cardiovascular: Present regular rhythm, Present heart sounds normal, Present capillary refill normal, Present normal rate GASTROINTESTINAL Abdominal: Present soft, Present nontender, Present bowel sounds normal GENITOURINARY Genitourinary: Present exam deferred SKIN Skin: Present warm, Present dry MUSCULOSKELETAL Musculoskeletal: Present other (DECR ROM RIGHT SHOULDER - UNABLE TO ABDUCT ARM PAST 90 DEGREES, MILD TTP POSTERIOR SHOULDER) NEUROLOGICAL Neurological: Present alert, Present oriented x 3, Present no gross motor or sensory deficits PSYCHOLOGICAL Psychological: Present mood/affect normal, Present judgement normal Results Imaging Imaging results reviewed: Yes Assessment & Plan Medical Decision Making MDM PT CAME TO ER BECAUSE PCP CHELY TOLD THEM THAT HE COULD NOT DO XRAY AND TO GO TO ER FOR XRAYS - UNLIKELY TO BE ACUTE FX, MORE LIKELY ROTATOR CUFF TEAR. WILL CHECK XRAY Reassessment Reassessment xrays negative, [facility] home, F/U ortho and PCP Assessment & Plan Final Impression: (1) Shoulder pain Depart Disposition: HOME, SELF-CARE Last Vital Signs Date Time Temp Pulse Resp B/P (MAP) Pulse Ox O2 Delivery O2 Flow Rate FiO2 03/10/20 16:25 98.1 93 18 127/72 97 Room Air Home Meds Active Scripts Guaifenesin/Dextromethorphan (MUCINEX DM ER 600-30 MG TABLET) 1 Each Tab.er.12h, 1 EACH PO Q12H for 7 Days, TAB Prov:ABDOULAYE GUIDO MD 07/11/19 Oseltamivir Phosphate (TAMIFLU) 75 Mg Cap, 75 MG PO DAILY, #1 Prov:ABDOULAYE GUIDO MD 07/11/19 Loratadine (LORATADINE) 10 Mg Tablet, 10 MG PO DAILY for 30 Days Prov:ABDOULAYE GUIDO MD 07/11/19 Famotidine (FAMOTIDINE) 20 Mg Tab, 20 MG PO BIDAC for 30 Days, TAB Prov:ABDOULAYE GUIDO MD 07/11/19 Benzonatate (TESSALON PERLE) 100 Mg Capsule, 100 MG PO TID for 10 Days Prov:ABDOULAYE GUIDO MD 07/11/19 Reported Medications Ipratropium/Albuterol Sulfate (COMBIVENT RESPIMAT INHAL SPRAY) 4 Gm Aer.w.adap 07/07/19 Tamsulosin Hcl* (FLOMAX*) 0.4 Mg Cap, 0.4 MG PO DAILY 07/07/19 Quetiapine Fumarate (QUETIAPINE FUMARATE) 25 Mg Tablet, 25 MG PO HS 07/07/19 Lovastatin (LOVASTATIN) 20 Mg Tablet, 20 MG PO DAILY 07/07/19 Metformin Hcl (METFORMIN HCL) 500 Mg Tablet, 500 MG PO DAILY 07/07/19 Enalapril Maleate (ENALAPRIL MALEATE) 2.5 Mg Tablet, 2.5 MG PO DAILY 07/07/19 ANAYELI OVALLE MD Mar 10, 2020 16:45
--- NOTE | 2020-03-10 17:36 | Diagnostic Imaging Report ---
RIGHT SHOULDER X-RAY - 2 VIEWS HISTORY: ^CAUGHT FR FALL, R SH PAIN, H/O LUNG CA ^[id number] ^[id number] COMPARISON: Chest radiograph 07/11/2019 FINDINGS: Bones: Stable remote posttraumatic deformity of the right mid clavicle. Indeterminate linear lucency within the inferior aspect of the acromion seen only on one view. Osseous alignment is within normal limits. Joints: Degenerative changes of the acromioclavicular and glenohumeral joint. Soft tissues: The soft tissues appear unremarkable. Diffuse reticular opacities throughout the right lung and a small right pleural effusion, unchanged. Partially visualized pacer leads. IMPRESSION: Stable post traumatic deformity of the right clavicle. Indeterminate small linear lucency within the acromion. Recommend right scapula x-ray series. Signed by: Dr. Pallavi Robles M.D. on 03/10/2020 5:33 PM
--- NOTE | 2020-03-10 18:40 | Diagnostic Imaging Report ---
RIGHT SCAPULA X-RAY - 2 VIEWS HISTORY: ^XRAY WITH LUCENCY ^[id number] ^[id number] COMPARISON: Right shoulder x-ray FINDINGS: Bones: No acute displaced fracture. Osseous alignment is within normal limits. Joints: The joint spaces are well-maintained. Soft tissues: The soft tissues appear unremarkable. IMPRESSION: No acute radiographic abnormality. The previously noted lucency likely corresponds to overlapping soft tissues and bones. Signed by: Dr. Pallavi Robles M.D. on 03/10/2020 6:37 PM
== END 2020-03-10 19:00 | disposition home or self-care (01) ==
LOC: ER 16:41
DX: M25.511 Pain in right shoulder (principal); X50.1XXA Overexertion from prolonged static or awkward postures, initial encounter; Y92.008 Other place in unspecified non-institutional (private) residence as the place of occurrence of the external cause; I10 Essential (primary) hypertension; E11.9 Type 2 diabetes mellitus without complications; E78.5 Hyperlipidemia, unspecified; J45.909 Unspecified asthma, uncomplicated; Z85.118 Personal history of other malignant neoplasm of bronchus and lung; Z95.0 Presence of cardiac pacemaker
CPT/HCPCS: 99283

== ENCOUNTER 2020-08-25 10:38 | Emergency (ER) | payer MEDICARE ==
[~2020-08-25] VITALS: Ht 162.6 cm; Wt 63.5 kg
[2020-08-25 12:05] LABS: CLARITY,URINE CLEAR (CLEAR); COLOR,URINE YELLOW (YELLOW); KETONES,URINE NEGATIVE (NEGATIVE); LEUKOCYTE ESTERASE ,URINE NEGATIVE (NEGATIVE); NITRITE,URINE NEGATIVE (NEGATIVE); PROTEIN,URINE DIPSTICK NEGATIVE (NEGATIVE); URINE UROBILINOGEN 0.2 mg/dL (0.2 - 1)
[2020-08-25 12:17] LABS: BACTERIA,URINE RARE /HPF
[2020-08-25 12:18] LABS: EPITHELIAL CELLS,URINE FEW /LPF
[2020-08-25 13:11] VITALS: BP 112/73
== END 2020-08-25 13:45 | disposition home or self-care (01) ==
LOC: ER 11:35
DX: R33.9 Retention of urine, unspecified (principal); R10.30 Lower abdominal pain, unspecified; I10 Essential (primary) hypertension; E11.9 Type 2 diabetes mellitus without complications; E78.5 Hyperlipidemia, unspecified; J45.909 Unspecified asthma, uncomplicated; Z85.118 Personal history of other malignant neoplasm of bronchus and lung
CPT/HCPCS: 51700; 81001; 87086; 99284